=== PATIENT | male | born 1950 | race Two or more races ===

== ENCOUNTER 2017-02-09 09:01 | Inpatient (IN) | payer MEDICARE, OTHER ==
[~2017-02-09] VITALS: Ht 182.9 cm; Wt 81.6 kg
[2017-02-09] MEDS ORDERED: FOLIC ACID1 MG ORAL (09:19)
[2017-02-09] MEDS ORDERED: COREG25 MG ORAL (09:19)
[2017-02-09] MEDS ORDERED: ASPIRIN EC81 MG ORAL (09:19)
[2017-02-09] MEDS ORDERED: AMLODIPINE BESYL5 MG ORAL (09:19)
[2017-02-09] MEDS ORDERED: ATORVASTATIN CA40 MG ORAL (09:19)
[2017-02-09] MEDS ORDERED: TYLENOL EXTRA500 MG ORAL (09:19)
[2017-02-09 09:22] VITALS: BP 146/75
[2017-02-09] MEDS ORDERED: VITAMIN B-1100 MG ORAL (09:24)
[2017-02-09] MEDS ORDERED: NORCO 5-325 TA1 EACH ORAL (09:24)
[2017-02-09] MEDS ORDERED: ZINC SULFATE220 M1 ORAL (09:24)
[2017-02-09] MEDS ORDERED: VITAMIN C500 M1 ORAL (09:24)
[2017-02-09] MEDS ORDERED: ONE DAILY1 EAC3 ORAL (09:24)
[2017-02-09] MEDS ORDERED: FUROSEMIDE40 MG ORAL (09:24)
[2017-02-09] MEDS ORDERED: PRO-STAT LIQUID30 ML ORAL (09:24)
[2017-02-09] MEDS ORDERED: TYLENOL650 MG/20. ORAL (09:24)
[2017-02-09] MEDS ORDERED: HUMALOG 75/255 UNIT1 SUBQ (09:24)
[2017-02-09 10:16] LABS: MEAN CORPUSCULAR HEMOGLOBIN 31.1 PG (27.0-31.0); MEAN CORPUSCULAR HGB CONC 31.9 G/DL (32.0-36.0); MEAN CORPUSCULAR VOLUME 98 FL (80-99); MEAN PLATELET VOLUME 5.3 FL (6.5-10.1); PLATELET COUNT 370 K/UL (150-450); RED BLOOD COUNT 2.42 M/UL (4.70-6.10); RED CELL DISTRIBUTION WIDTH 12.7 % (11.6-14.8); WHITE BLOOD COUNT 13.3 K/UL (4.8-10.8)
[2017-02-09 10:21] LABS: ALANINE AMINOTRANSFERASE 29 U/L (3-41); ALBUMIN/GLOBULIN RATIO 0.4 (1.0-2.7); ANION GAP 18 (5-15); ASPARTATE AMINO TRANSFERASE 27 U/L (5-40); CALCIUM 8.2 mg/dL (8.6-10.2); CARBON DIOXIDE 18 mEQ/L (20-30); CHLORIDE 99 mEQ/L (98-107); CREATININE 3.3 mg/dL (0.7-1.2); GLOMERULAR FILTRATION RATE 18.7 mL/min (>60); HEMOLYSIS 6; POTASSIUM 4.7 mEQ/L (3.4-4.9); SODIUM 135 mEQ/L (135-145); TOTAL PROTEIN 7.9 g/dL (6.6-8.7)
[2017-02-09 10:41] LABS: ANISOCYTOSIS 1+; BAND NEUTROPHILS % (MANUAL) 0 % (0-8); BASOPHILS % (MANUAL) 0 % (0-2); EOSINOPHILS % (MANUAL) 0 % (0-3); HYPOCHROMASIA 3+; LYMPHOCYTES % (MANUAL) 3 % (20-45); NEUTROPHILS % (MANUAL) 85 % (45-75); PLATELET ESTIMATE ADEQUATE; PLATELET MORPHOLOGY NORMAL; TOTAL CELLS COUNTED 100
[2017-02-09 11:11] VITALS: BP 143/64
[2017-02-09 11:55] LABS: APPEARANCE,URINE SLIGHTLY CLOUDY; KETONES,URINE NEGATIVE (NEGATIVE); LEUKOCYTE ESTERASE ,URINE NEGATIVE (NEGATIVE); NITRITE,URINE NEGATIVE (NEGATIVE); PH,URINE 5 (4.5-8.0); PROTEIN,URINE 3+ (NEGATIVE); UROBILINOGEN,URINE NORMAL MG/DL (0.0-1.0)
[2017-02-09 12:13] LABS: AMORPHOUS SEDIMENT,UR MANY /LPF; BACTERIA,URINE OCCASIONAL /HPF; RBC,URINE 0-2 /HPF (0 - 0); SQUAMOUS EPITHELIAL CELL,UR OCCASIONAL /LPF (NONE/OCC); WBC,URINE 0-2 /HPF (0 - 0)
[2017-02-09 12:14] LABS: HYALINE CASTS, URINE 0-2 /LPF
[2017-02-09 14:05] VITALS: BP 135/63
[2017-02-09] MEDS ORDERED: Cefepime HCl 1 GM in D5W 55 ML IVPB ONE (15:00)
--- NOTE | 2017-02-09 15:00 | Emergency Room Report ---
History of Present Illness General Chief Complaint: Abnormal Labs Source: Medical Record, EMS Present Illness HPI This patient is brought in by EMS from a [facility] facility. He is brought in at the request of his primary care physician for her abnormal routine labs. Apparently, the patient was found to have anemia, leukocytosis and azotemia. The patient is a poor historian and has no specific complaints. Patient has a history of cirrhosis, diabetes, alcohol abuse, congestive heart failure and coronary artery disease. Allergies: Coded Allergies: No Known Allergies (Unverified , 02/09/17) Patient History Past Medical History: see triage record, DM, [place] - ETOH abuse, cirrhosis, CAD, CHF, other Social History: Denies: alcohol use, drug use, smoking Reviewed Nursing Documentation: PMH: Agreed, PSxH: Agreed Nursing Documentation-PMH Past Medical History: No History, Except For Hx Hypertension: Yes Hx Diabetes: Yes Review of Systems All Other Systems: negative except mentioned in HPI Physical Exam Vital Signs Date Time Temp Pulse Resp B/P Pulse Ox O2 Delivery O2 Flow Rate FiO2 02/09/17 08:52 98.1 67 16 146/75 97 Room Air Sp02 EP Interpretation: reviewed, normal General Appearance: no apparent distress, alert, GCS 15, non-toxic Head: normocephalic, atraumatic Eyes: bilateral eye PERRL, bilateral eye normal inspection ENT: hearing grossly normal, normal pharynx, no angioedema, normal voice Neck: full range of motion, supple/symm/no masses Respiratory: chest non-tender, lungs clear, normal breath sounds, speaking full sentences Cardiovascular #1: regular rate, rhythm, no edema Gastrointestinal: normal bowel sounds, non tender, soft, non-distended, no guarding, no rebound Rectal: deferred Musculoskeletal: normal range of motion Neurologic: alert, responsive, motor strength/tone normal, speech normal Psychiatric: mood/affect normal Skin: warm/dry, other - See RN skin exam Medical Decision Making Diagnostic Impression: Primary Impression: Renal failure Additional Impressions: Anemia Leukocytosis Pneumonia ER Course Patient presents from a [facility] facility with renal failure, anemia and leukocytosis. Apparently, the anemia has been ongoing for the past month. The patient has had undergo blood transfusion. The patient underwent a surgical debridement of the right lower extremity where there was a severe cellulitis. The patient is an undergo a BKA. Patient is also found to be in renal failure. The patient was recently started on Lasix for congestive heart failure. He also has a mild leukocytosis that could be related to known cellulitis versus bacteremia. There is no evidence of urinary tract infection with negative urinalysis. There is a right lower lobe opacity on chest x-ray that could be pneumonia. There is no comparison available I am unsure of the acuity of this. Regardless, the patient is admitted for renal failure, anemia and pneumonia. Labs Test 02/09/17 09:50 02/09/17 11:30 White Blood Count 13.3 K/UL (4.8-10.8) Red Blood Count 2.42 M/UL (4.70-6.10) Hemoglobin 7.5 G/DL (14.2-18.0) Hematocrit 23.6 % (42.0-52.0) Mean Corpuscular Volume 98 FL (80-99) Mean Corpuscular Hemoglobin 31.1 PG (27.0-31.0) Mean Corpuscular Hemoglobin Concent 31.9 G/DL (32.0-36.0) Red Cell Distribution Width 12.7 % (11.6-14.8) Platelet Count 370 K/UL (150-450) Mean Platelet Volume 5.3 FL (6.5-10.1) Neutrophils (%) (Auto) % (45.0-75.0) Lymphocytes (%) (Auto) % (20.0-45.0) Monocytes (%) (Auto) % (1.0-10.0) Eosinophils (%) (Auto) % (0.0-3.0) Basophils (%) (Auto) % (0.0-2.0) Differential Total Cells Counted 100 Neutrophils % (Manual) 85 % (45-75) Lymphocytes % (Manual) 3 % (20-45) Monocytes % (Manual) 12 % (1-10) Eosinophils % (Manual) 0 % (0-3) Basophils % (Manual) 0 % (0-2) Band Neutrophils 0 % (0-8) Platelet Estimate Adequate Platelet Morphology Normal Hypochromasia 3+ Anisocytosis 1+ Sodium Level 135 mEQ/L (135-145) Potassium Level 4.7 mEQ/L (3.4-4.9) Chloride Level 99 mEQ/L (98-107) Carbon Dioxide Level 18 mEQ/L (20-30) Anion Gap 18 (5-15) Blood Urea Nitrogen 107 mg/dL (7-23) Creatinine 3.3 mg/dL (0.7-1.2) Estimat Glomerular Filtration Rate 18.7 mL/min (>60) Glucose Level 156 mg/dL (74-106) Calcium Level 8.2 mg/dL (8.6-10.2) Total Bilirubin < 0.2 mg/dL (0.0-1.2) Aspartate Amino Transf (AST/SGOT) 27 U/L (5-40) Alanine Aminotransferase (ALT/SGPT) 29 U/L (3-41) Alkaline Phosphatase 230 U/L (40-129) Total Protein 7.9 g/dL (6.6-8.7) Albumin 2.4 g/dL (3.5-5.2) Globulin 5.5 g/dL Albumin/Globulin Ratio 0.4 (1.0-2.7) Urine Color Pale yellow Urine Appearance Slightly cloudy Urine pH 5 (4.5-8.0) Urine Specific [place] 1.015 (1.005-1.035) Urine Protein 3+ (NEGATIVE) Urine Glucose (UA) Negative (NEGATIVE) Urine Ketones Negative (NEGATIVE) Urine Occult Blood Negative (NEGATIVE) Urine Nitrite Negative (NEGATIVE) Urine Bilirubin Negative (NEGATIVE) Urine Urobilinogen Normal MG/DL (0.0-1.0) Urine Leukocyte Esterase Negative (NEGATIVE) Urine RBC 0-2 /HPF (0 - 0) Urine WBC 0-2 /HPF (0 - 0) Urine Squamous Epithelial Cells Occasional /LPF Urine Amorphous Sediment Many /LPF (NONE) Urine Bacteria Occasional /HPF (NONE) Urine Hyaline Casts 0-2 /LPF (NONE) Chest X-Ray Diagnostic Results EP Interpretation: Yes Findings: no pneumothorax Number of Views: 1 Other Impression RLL opacity Last Vital Signs Date Time Temp Pulse Resp B/P Pulse Ox O2 Delivery O2 Flow Rate FiO2 02/09/17 14:39 98.1 65 16 135/63 98 Room Air Disposition: ADMITTED INPATIENT Condition: Serious Referrals: KELSEA DIAL (PCP) EFDERICA COLE D.O. Feb 09, 2017 15:00
[2017-02-09] MEDS ORDERED: Cefepime 1gm vial ONE (15:06)
--- NOTE | 2017-02-09 15:22 | Diagnostic Imaging Report ---
Indication: Chest pain Technique: One view of the chest Comparison: none Findings: Infiltrate is seen in the right mid and lower lung. There is a right-sided pleural effusion. Atelectasis is seen at the left lung base. The heart is mildly enlarged. Impression: Right basilar infiltrate and pleural fluid Cardiomegaly
[2017-02-09 15:42] VITALS: BP 135/65
[2017-02-09 20:00] VITALS: BP 143/71
[2017-02-09] MEDS: Norco 5mg/325mg tab ORAL PRN (20:18)
[2017-02-09] MEDS ORDERED: Vancomycin 1.5 GM in D5W 325 ML IVPB ONE (21:00)
[2017-02-09] MEDS ORDERED: Zolpidem 5mg tab ORAL PRN (21:00)
[2017-02-09] MEDS: NovoLOG Insulin Flexpen SUBQ SCH (21:22)
[2017-02-09] MEDS ORDERED: Piperacillin/Tazobactam 3.375 GM in NS 110 ML IVPB SCH (23:00)
[2017-02-09] MEDS ORDERED: Piperacillin/Tazobactam 3.375 GM in D5W 110 ML IVPB SCH (23:00)
[2017-02-10 00:01] VITALS: BP 132/64
--- NOTE | 2017-02-10 00:28 | History and Physical Report ---
DATE OF ADMISSION: 02/09/2017 REASON FOR ADMISSION: Abnormal labs, profound anemia and renal failure. HISTORY OF PRESENT ILLNESS: This is a 66-year-old female brought in for abnormal labs. The patient was noted to be significantly anemic with leukocytosis and renal failure. The patient underwent history of cirrhosis, diabetes, and CHF. The patient was seen and evaluated in the emergency room and was noted to have significantly abnormal labs. Pending admission to the floor, the patient was given IV antibiotics and x-rays and labs were obtained. The patient denies any chest pain and shortness of breath. Denies any fevers or chills. The patient events are fairly subacute in nature, but appear to have worsened overall. The patient has no fevers or chills, no pain of a significant degree. PAST MEDICAL HISTORY: Diabetes, CT, alcohol abuse, cirrhosis, CAD, CHF, and possible history of renal failure. MEDICATIONS: Reviewed. ALLERGIES: Reviewed. SOCIAL HISTORY: The patient is now at a prison. History of alcohol use in the past. REVIEW OF SYSTEMS: Otherwise negative with the exception of the above. PHYSICAL EXAMINATION: GENERAL: The patient is a well-developed male, in no acute distress. VITAL SIGNS: Blood pressure 135/65, pulse 62, respirations 18, temperature 97.7 degrees, and oxygen saturation 97%. HEENT: Fairly negative. Extraocular movements are intact. Pupils are equal and reactive. NECK: Otherwise supple. LUNGS: Otherwise clear. No rhonchi. No wheezes. CARDIAC: Normal S1 and S2. Regular rhythm without murmurs, rubs, or gallops. ABDOMEN: Soft, nontender, and nondistended. EXTREMITIES: No cyanosis. No clubbing. NEUROLOGIC: Alert, responsive, and appears to be nonfocal. LABORATORY DATA: Sodium 135, potassium 4.7, BUN 107, and creatinine 3.3. Blood sugar is 156. Alkaline phosphatase 230. Albumin 2.4. White cell count 13.3, hemoglobin 10.5, hematocrit 33.6, and platelets 370,000. Urinalysis with minimal white cells. IMPRESSION: 1. Leukocytosis. 2. Evidence of metabolic acidosis. 3. Concerns for a possibility of underlying sepsis syndrome. 4. Hyperglycemia. 5. Renal failure, possible acute on chronic. 6. Elevated alcohol phosphatase, unclear etiology. 7. Significant anemia, possible gastrointestinal bleed. RECOMMENDATIONS: 1. Transfuse 2 units of packed red blood cells. 2. Empiric antibiotics. 3. IV hydration with caution. 4. Renal followup and recommendations. 5. Review prison medications and avoid diuresis. 6. Clinically recommend EKG and renal evaluation and hopefully ID evaluation. 7. On stabilizing, discharge the patient back to the prison. Corbin Navarro M.D. DR: CLARKE JOB#: [id number] CC:
[2017-02-10 04:00] VITALS: BP 147/74
[2017-02-10] MEDS: NovoLOG Insulin Flexpen SUBQ SCH ×4 (06:40→21:36)
[2017-02-10 07:54] LABS: BASOPHILS % (AUTO) 0.6 % (0.0-2.0); EOSINOPHILS % (AUTO) 1.1 % (0.0-3.0); MEAN CORPUSCULAR HEMOGLOBIN 30.7 PG (27.0-31.0); MEAN CORPUSCULAR HGB CONC 32.7 G/DL (32.0-36.0); MEAN CORPUSCULAR VOLUME 94 FL (80-99); MEAN PLATELET VOLUME 5.7 FL (6.5-10.1); MONOCYTES % (AUTO) 7.4 % (1.0-10.0); NEUTROPHILS % (AUTO) 83.8 % (45.0-75.0); PLATELET COUNT 322 K/UL (150-450); RED BLOOD COUNT 3.02 M/UL (4.70-6.10); RED CELL DISTRIBUTION WIDTH 13.7 % (11.6-14.8); WHITE BLOOD COUNT 10.7 K/UL (4.8-10.8)
[2017-02-10 08:00] VITALS: BP 146/69
--- NOTE | 2017-02-10 08:18 | General Progress Note ---
Assessment/Plan Assessment/Plan IMPRESSION: 1. Leukocytosis. 2. Evidence of metabolic acidosis. 3. Concerns for a possibility of underlying sepsis syndrome. 4. Hyperglycemia. 5. Renal failure, possible acute on chronic. 6. Elevated alcohol phosphatase, unclear etiology. 7. Significant anemia, possible gastrointestinal bleed. RECOMMENDATIONS: 1. Transfused 2 units of packed red blood cells. will call GI 2. Empiric antibiotics. and call ID 3. IV hydration with caution. 4. Renal followup and recommendations. called 5. Review [facility] medications and avoid diuresis. 6. Clinically recommend EKG and renal evaluation and hopefully ID evaluation. 7. will stabilize and discharge the patient back to the [facility]. Subjective Allergies: Coded Allergies: No Known Allergies (Unverified , 02/09/17) Subjective seems confused disheveled Objective Last 24 Hour Vital Signs Date Time Temp Pulse Resp B/P Pulse Ox O2 Delivery O2 Flow Rate FiO2 02/10/17 04:00 66 02/10/17 04:00 98.0 66 18 147/74 97 Room Air 02/10/17 00:31 60 02/10/17 00:01 98.1 61 18 132/64 94 Room Air 02/09/17 20:00 97.7 65 19 143/71 95 Room Air 02/09/17 20:00 65 02/09/17 16:00 65 02/09/17 15:42 97.7 62 18 135/65 97 Room Air 02/09/17 14:39 98.1 65 16 135/63 98 Room Air 02/09/17 14:05 65 16 135/63 98 Room Air 02/09/17 11:11 64 16 143/64 97 Room Air 02/09/17 09:22 16 146/75 97 Room Air 02/09/17 08:52 98.1 67 16 146/75 97 Room Air Intake and Output 02/09/17 02/10/17 19:00 07:00 Intake Total 0 ml 755.0 ml Output Total 1700 ml 900 ml Balance -1700 ml -145.0 ml Intake Oral 0 ml 220 ml IV Total 535.0 ml Output Urine Total 1700 ml 900 ml Laboratory Tests 02/09/17 09:50: White Blood Count 13.3H, Red Blood Count 2.42L, Hemoglobin 7.5L, Hematocrit 23.6L, Mean Corpuscular Volume 98, Mean Corpuscular Hemoglobin 31.1H, Mean Corpuscular Hemoglobin Concent 31.9L, Red Cell Distribution Width 12.7, Platelet Count 370, Mean Platelet Volume 5.3L, Neutrophils (%) (Auto) , Lymphocytes (%) (Auto) , Monocytes (%) (Auto) , Eosinophils (%) (Auto) , Basophils (%) (Auto) , Differential Total Cells Counted 100, Neutrophils % ( Manual) 85H, Lymphocytes % (Manual) 3L, Monocytes % (Manual) 12H, Eosinophils % (Manual) 0, Basophils % (Manual) 0, Band Neutrophils 0, Platelet Estimate Adequate, Platelet Morphology Normal, Hypochromasia 3+, Anisocytosis 1+, Sodium Level 135, Potassium Level 4.7, Chloride Level 99, Carbon Dioxide Level 18L, Anion Gap 18H, Blood Urea Nitrogen 107H, Creatinine 3.3H, Estimat Glomerular Filtration Rate 18.7, Glucose Level 156H, Calcium Level 8.2L, Total Bilirubin < 0.2, Aspartate Amino Transf (AST/SGOT) 27, Alanine Aminotransferase (ALT/SGPT) 29, Alkaline Phosphatase 230H, Total Protein 7.9, Albumin 2.4L, Globulin 5.5, Albumin/Globulin Ratio 0.4L 02/09/17 11:30: Urine Color Pale yellow, Urine Appearance Slightly cloudy, Urine pH 5, Urine Specific [place] 1.015, Urine Protein 3+H, Urine Glucose (UA) Negative, Urine Ketones Negative, Urine Occult Blood Negative, Urine Nitrite Negative, Urine Bilirubin Negative, Urine Urobilinogen Normal, Urine Leukocyte Esterase Negative , Urine RBC 0-2H, Urine WBC 0-2, Urine Squamous Epithelial Cells Occasional, Urine Amorphous Sediment ManyH, Urine Bacteria Occasional, Urine Hyaline Casts 0 -2H 02/10/17 07:20: White Blood Count 10.7, Red Blood Count 3.02L, Hemoglobin 9.3L, Hematocrit 28.4L , Mean Corpuscular Volume 94, Mean Corpuscular Hemoglobin 30.7, Mean Corpuscular Hemoglobin Concent 32.7, Red Cell Distribution Width 13.7, Platelet Count 322, Mean Platelet Volume 5.7L, Neutrophils (%) (Auto) 83.8H, Lymphocytes (%) (Auto) 7.0L, Monocytes (%) (Auto) 7.4, Eosinophils (%) (Auto) 1.1, Basophils (%) (Auto) 0.6, Sodium Level [Pending], Potassium Level [Pending], Chloride Level [Pending], Carbon Dioxide Level [Pending], Blood Urea Nitrogen [ Pending], Creatinine [Pending], Estimat Glomerular Filtration Rate [Pending], Glucose Level [Pending], Calcium Level [Pending] Height (Feet): 6 Height (Inches): 0.00 Weight (Pounds): 180 Objective GENERAL: The patient is a well-developed male, in no acute distress.. HEENT: Fairly negative. Extraocular movements are intact. Pupils are equal and reactive. NECK: Otherwise supple. LUNGS: Otherwise clear. No rhonchi. No wheezes. CARDIAC: Normal S1 and S2. Regular rhythm without murmurs, rubs, or gallops. ABDOMEN: Soft, nontender, and nondistended. EXTREMITIES: No cyanosis. No clubbing. NEUROLOGIC: Alert, responsive, and appears to be nonfocal. reviewed and edited KELSEA DIAL Feb 10, 2017 08:18
[2017-02-10 08:19] LABS: CALCIUM 7.9 mg/dL (8.6-10.2); CREATININE 3.2 mg/dL (0.7-1.2); GLOMERULAR FILTRATION RATE 19.4 mL/min (>60); POTASSIUM 4.8 mEQ/L (3.4-4.9)
[2017-02-10] MEDS: Ascorbic Acid 500mg tab ORAL SCH (10:23)
[2017-02-10] MEDS: Thiamine 100mg tab ORAL SCH (10:23)
[2017-02-10] MEDS: Zinc Sulfate 220mg cap ORAL SCH (10:23)
[2017-02-10] MEDS: Carvedilol 25mg Tab ORAL SCH ×2 (10:23→21:32)
--- NOTE | 2017-02-10 10:45 | Diagnostic Imaging Report ---
Indication: COUGH Technique: One view of the chest Comparison: 02/09/2017 Findings: Again demonstrated is bilateral interstitial and airspace disease, appearing unchanged. The heart is enlarged. There is likely small amount of pleural fluid on the right, unchanged. Old healed [fractures are again noted. Impression: Unchanged, over one day, findings as above.
[2017-02-10 11:12] VITALS: BP 150/74
--- NOTE | 2017-02-10 11:53 | Wound Care Consultation ---
Wound Assessment Wound Assessment #1: Wound Number: #1 Wound Present on Admission: Yes New Wound: No Status Change of Wound: No Wound Location Body Site Modif: right Wound Location Body Site: heel Wound Type: pressure ulcer Mayela Test: Does not Mayela Pressure Ulcer Stage: IV/unstageable Wound Thickness: Full Thickness Wound Length: 7.5 Wound Width: 7.5 Wound Depth: 2.5 Percent of Wound [place]/Red: 40 Percent of Wound Bed Yellow/Wh: 30 Percent of Wound Black/Brown: 20 Percent of Wound Purple/Maroon: 10 Wound Drainage Description: Serosanguineous Wound Drainage Amount: Copious Wound Drainage Odor: None/Absent Tissue Surrounding Wound: noted wound bed, boggy , mushy, surrounding tissue noted macerated, erythemic, necrotic. Wound Undermining at 12:00: 2.5 Wound Undermining at 3:00: 2.5 Wound Undermining at 6:00: 2.5 Wound Undermining at 9:00: 2.5 Wound General Appearance: Reddened, Blackened, Draining Wound Assessment #2: Wound Number: #2 Wound Present on Admission: Yes New Wound: No Status Change of Wound: No Wound Location Body Site Modif: left Wound Location Body Site: toe - 1st big toe Wound Type: other - thick adhered dry callus. Mayela Test: Does not Mayela Wound Thickness: Full Thickness Wound Length: 3.0 Wound Width: 3.0 Wound Depth: utd Percent of Wound Bed Yellow/Wh: 90 Percent of Wound Black/Brown: 10 Wound Drainage Amount: None Wound Drainage Odor: None/Absent Tissue Surrounding Wound: Intact Wound General Appearance: Open to air, Clean/Dry Wound Assessment #3: Wound Number: #3 Wound Present on Admission: Yes New Wound: No Status Change of Wound: No Wound Location Body Site: sacral Wound Type: pressure ulcer Mayela Test: Does not Mayela Pressure Ulcer Stage: deep tissue injury - suspected Wound Thickness: Full Thickness Wound Length: 3.0 Wound Width: 1.5 Wound Depth: utd Percent of Wound [place]/Red: 10 Percent of Wound Black/Brown: 40 - dark brown color noted. Percent of Wound Purple/Maroon: 50 Wound Drainage Odor: None/Absent Tissue Surrounding Wound: Intact Wound General Appearance: Reddened - maroon. Wound Comment #1 Right heel pressure ulcer stage IV/Unstageable. #2 Left 1st toe callus. #3 Sacral suspected deep tissue injury. -FOLLOW UP WITH MD FOR PODIATRY CONSULT TO RIGHT HEEL WOUND. RECOMMENDATION -Apply low air loss overlay mattress SPR. -Local wound care as ordered. -Optimize nutrition. -Keep clean and dry. -Avoid shear and friction. -Turn and reposition. -Heel protectors. -Offload both heels and feet. -Assess and follow up with MD for any change of condition. ROSENDO ANTOINE Feb 10, 2017 11:53
[2017-02-10] MEDS: Piperacillin/Tazobactam 3.375 GM in NS 110 ML IVPB SCH (13:59)
[2017-02-10] MEDS: Heparin 5000 units/ml inj SUBQ SCH ×3 (13:59→21:37)
[2017-02-10 15:21] VITALS: BP 137/68
--- NOTE | 2017-02-10 18:38 | Consultation ---
DATE OF CONSULTATION: 02/10/2017 INFECTIOUS DISEASES CONSULTATION CONSULTING PHYSICIAN: Francia De La Vega M.D. REFERRING PHYSICIAN: Corbin Navarro M.D. REASON FOR CONSULTATION: Leukocytosis. HISTORY OF PRESENTING ILLNESS: This is a 66-year-old gentleman with history of diabetes, cirrhosis, myocardial infarction, and congestive heart failure, who came in with leukocytosis and renal failure. An Infectious Diseases consultation has been obtained for leukocytosis. PAST MEDICAL HISTORY: 1. History of diabetes. 2. Myocardial infarction. 3. Cirrhosis. 4. Coronary artery disease. 5. Congestive heart failure. 6. Renal failure. SOCIAL HISTORY: He has a history of alcohol use. Rest of the history is unknown. FAMILY HISTORY: Unknown. REVIEW OF SYSTEMS: Unable to obtain currently. MEDICATIONS: As an inpatient, the patient is on atorvastatin, Zosyn, Norvasc, vitamin C, Coreg, folic acid, multivitamin, thiamine, zinc sulfate, Protonix, Ambien, insulin, [place], IV vancomycin, Tylenol, Mylanta, and albuterol. ALLERGIES: No known drug allergies. PHYSICAL EXAMINATION: VITAL SIGNS: Temperature of 98.1, T-max of 98.1, pulse of 83, respiratory of 18, blood pressure 146/69, and O2 saturation of 95%. HEENT: Pupils are equally reactive to light and accommodation. Mouth appears clean without thrush. NECK: Supple. No adenopathy. No JVD. CARDIOVASCULAR: Regular rate and rhythm. No murmurs. LUNGS: Clear to auscultation bilaterally. No crackles. No wheezes. ABDOMEN: Soft and nontender. No organomegaly. EXTREMITIES: No cyanosis, no clubbing, no edema. LABORATORY DATA: White count of 13.3 on 02/09/2017, white count of 10.7 today, hemoglobin 9.3, hematocrit 28.4, MCV 94, platelet count of 322,000, and neutrophils of 83%. Sodium 134, potassium 4.8, chloride 100, bicarbonate 17, BUN 99, creatinine 3.2, glucose 187, and calcium 7.9. Total bilirubin yesterday less than 0.2. AST 27, ALT 29, and alkaline phosphatase 230. Total protein 7.9. Albumin 2.4. UA is showing 0 to 2 white cells. Chest x-ray is showing right base infiltrate and pleural fluid. ASSESSMENT: 1. This is a 66-year-old gentleman with history of cirrhosis and diabetes, who comes in and is found to have leukocytosis, would be concerned regarding sepsis or urinary tract infection. 2. Cirrhosis. 3. Diabetes. 4. Renal failure. PLAN: 1. We will order blood cultures and urine cultures. 2. Continue Zosyn. 3. Discontinue vancomycin. 4. We will follow up cultures and adjust antibiotics accordingly. I would like to thank, Dr. Navarro, for this consultation. Francia De La Vega M.D. DR: CORKY JOB#: [id number] CC: Corbin Navarro M.D.; Fax#: [phone]
[2017-02-10 20:18] VITALS: BP 131/87
[2017-02-10] MEDS: Vitamin A&D Oint 2oz Tube TOPIC SCH (21:31)
--- NOTE | 2017-02-10 21:56 | General Progress Note ---
Subjective Allergies: Coded Allergies: No Known Allergies (Unverified , 02/09/17) Objective Last 24 Hour Vital Signs Date Time Temp Pulse Resp B/P Pulse Ox O2 Delivery O2 Flow Rate FiO2 02/10/17 21:32 77 147/98 02/10/17 20:23 68 20 Room Air 21 02/10/17 20:18 98.3 67 20 131/87 96 Room Air 02/10/17 16:00 66 02/10/17 15:21 98.2 63 20 137/68 98 Room Air 02/10/17 12:00 68 02/10/17 11:12 98.2 74 20 150/74 94 Room Air 02/10/17 10:23 83 146/69 02/10/17 10:23 83 146/69 02/10/17 09:09 83 18 Room Air 21 02/10/17 08:00 69 02/10/17 08:00 98.1 64 18 146/69 95 Room Air 64 02/10/17 04:00 66 02/10/17 04:00 98.0 66 18 147/74 97 Room Air 02/10/17 00:31 60 02/10/17 00:01 98.1 61 18 132/64 94 Room Air Intake and Output 02/09/17 02/10/17 19:00 07:00 Intake Total 0 ml 755.0 ml Output Total 1700 ml 900 ml Balance -1700 ml -145.0 ml Intake Oral 0 ml 220 ml IV Total 535.0 ml Output Urine Total 1700 ml 900 ml Laboratory Tests 02/10/17 07:20: White Blood Count 10.7, Red Blood Count 3.02L, Hemoglobin 9.3L, Hematocrit 28.4L , Mean Corpuscular Volume 94, Mean Corpuscular Hemoglobin 30.7, Mean Corpuscular Hemoglobin Concent 32.7, Red Cell Distribution Width 13.7, Platelet Count 322, Mean Platelet Volume 5.7L, Neutrophils (%) (Auto) 83.8H, Lymphocytes (%) (Auto) 7.0L, Monocytes (%) (Auto) 7.4, Eosinophils (%) (Auto) 1.1, Basophils (%) (Auto) 0.6, Sodium Level 134L, Potassium Level 4.8, Chloride Level 100, Carbon Dioxide Level 17L, Anion Gap 17H, Blood Urea Nitrogen 99H, Creatinine 3.2H, Estimat Glomerular Filtration Rate 19.4, Glucose Level 187H, Calcium Level 7.9L Height (Feet): 6 Height (Inches): 0.00 Weight (Pounds): 180 BESS HOGAN Feb 10, 2017 21:56
[2017-02-10 22:25] LABS: INR 1.3 (0.9-1.1); PROTHROMBIN TIME 12.9 SEC (9.30-11.50)
--- NOTE | 2017-02-10 22:28 | Consultation ---
DATE OF CONSULTATION: 02/10/2017 NEPHROLOGY CONSULTATION: CONSULTING PHYSICIAN: Rajat Wood M.D. ATTENDING PHYSICIAN: Corbin Navarro M.D. REFERRING PHYSICIAN: Corbin Navarro M.D. REASON FOR CONSULTATION: Abnormal BUN and creatinine. HISTORY OF PRESENT ILLNESS: The patient is a 66-year-old man, who is sent in from the [facility]. Unfortunately, the records have not arrived from the [facility] and he cannot give a good history. He has a poor memory. I have requested for the records and I have called the family, but I have not received a call back at the time of this dictation. The patient apparently has diabetes for many years and cirrhosis secondary to alcoholism and history of CHF. He has severe anemia and azotemia and was sent in for evaluation of abnormal laboratories. He also has an abnormal chest x-ray. He denies shortness of breath, cough, nausea, vomiting, abdominal pain, hematochezia, or melena. PAST SURGICAL HISTORY: Leg fracture many years ago. MEDICATIONS: Medications at the [facility] on the computer are listed and include Tylenol, Pro-Stat, amlodipine, ascorbic acid, aspirin, atorvastatin, carvedilol, folic acid, furosemide, [place], Lispro, insulin, multivitamins, thiamine, and zinc sulfate. HABITS: He was a heavy alcohol user in the past. He states that he quit. He has used marijuana. He denies intravenous drug abuse or smoking cigarettes. ALLERGIES: None known. SOCIAL HISTORY: He lives in an [facility]. SYSTEM REVIEW: HEAD, EYES, EARS, NOSE, AND THROAT: The patient is very hard of hearing. His vision is good. ENDOCRINE: History of diabetes. He is not aware of thyroid disease. PULMONARY: He denies shortness of breath or cough at this time. CARDIAC: He denies chest pain or palpitations. There is apparently a history of CHF. He is on cardiac medications. GASTROINTESTINAL: He denies nausea or vomiting at this time. He states that his appetite is good. GENITOURINARY: He denies difficulty voiding. NEUROLOGIC: He denies seizure or stroke. PHYSICAL EXAMINATION: GENERAL: The patient is a alert man, lying in bed. VITAL SIGNS: Temperature is 98.2 degrees, pulse 63, respirations 20, blood pressure 137/68, and pulse oximetry 98% on room air. He was seen with a slash trimmer and a nurse at the bedside. HEENT: Ocular motions are intact in all directions. Sclerae are nonicteric. Oral mucosa is moist. NECK: No adenopathy. LUNGS: Clear. HEART: Rhythm is regular. I hear no murmur. ABDOMEN: Soft. I am not able to clearly feel liver or spleen edge. EXTREMITIES: No edema, cyanosis, or clubbing. There is a dressing over the right heel, where he has a wound. NEUROLOGIC: He is alert and responsive. Speech is slurred, but he is very hard of hearing. Ocular motions are intact in all directions. Smile is symmetric and he moves all extremities. PERTINENT LABORATORY DATA: On 02/09/2017, BUN was 107 and creatinine 3.3 and on 02/10/2017, BUN was 99 and creatinine 3.2. Sodium is 134, potassium 4.8, chloride 100, CO2 17, and glucose 187. White count is 10.7 and hemoglobin 9.3, and on arrival hemoglobin was 7.5. Urinalysis shows 0 to 2 red cells, and 0 to 2 white cells per high-power field. DIAGNOSTIC DATA: Chest x-ray shows bilateral interstitial and air space disease. IMPRESSION: 1. Elevated BUN and creatinine, likely chronic kidney disease stage 5. Prior laboratories are not available. Perhaps there is a component of acute kidney injury as well, but it is not clear. 2. Metabolic acidosis. 3. Anemia likely anemia of chronic kidney disease. 4. Cirrhosis. 5. Abnormal chest x-ray, possibly from atelectasis or possible infiltrate, possible component of congestive heart failure. PLAN: We will try to get further information from family and the ECF about his underlying disease. We will get renal imaging and consider whether or not he is a candidate for dialysis if his renal function does not improve with careful hydration. He is a high risk patient in view of cirrhosis and renal disease. Thank you so much for allowing me to participate in the care of this patient. Rajat Wood M.D. DR: Patricia JOB#: [id number] CC:
[2017-02-11 00:02] VITALS: BP 140/67
[2017-02-11] MEDS: Albuterol ud Inhalation HHN PRN (00:36)
--- NOTE | 2017-02-11 02:48 | Consultation ---
DATE OF CONSULTATION: 02/10/2017 NOTE: VERY BAD INAUDIBLE AUDIO QUALITY GASTROLOGY CONSULTATION CHIEF COMPLAINT: I was asked to see this patient by Dr. Corbin Navarro for evaluation of anemia and cirrhosis. HISTORY OF PRESENT ILLNESS: The patient is a 66-year-old man, who is somewhat agitated and yelling throughout the interview for abnormal laboratories. The patient appears to have poor insight into his health and could not clearly answer to the questions. The patient had history of alcohol use and has been diagnosed with alcoholic cirrhosis, although his history of cirrhosis. The patient also has , which is being evaluated separately by guidance secretary. The patient today. He cannot recall when he has had endoscopy or colonoscopy in the past. PAST MEDICAL HISTORY: History of diabetes, myocardial infarction, history of alcohol abuse, cirrhosis, coronary artery disease, congestive heart failure and chronic renal failure. MEDICATIONS: See chart for details. FAMILY HISTORY: Noncontributory. SOCIAL HISTORY: The patient is from a [facility] at this time and did have alcohol abuse history in the past. REVIEW OF SYSTEMS: Otherwise negative. PHYSICAL EXAMINATION: GENERAL: The patient is agitated, man, who has bedside. HEENT: Normocephalic and atraumatic. Sclerae anicteric. Oropharynx is clear. NECK: Supple. CHEST: Clear to auscultation. CARDIOVASCULAR: Revealed regular rate. ABDOMEN: Soft. Good bowel sounds. EXTREMITIES: Revealed no edema. NEUROLOGIC: Nonfocal. LABORATORY DATA: Noted. ASSESSMENT: This patient presents with multiple medical problems. There . He has had history of alcohol use and has been consistent to have liver disease. However, his platelet counts are normal and his INR is 1.3. He did not . However, his imaging studies will be done to evaluate liver morphology. In the meantime, as tolerated. We will monitor his CBC, but there appeared to be gastrointestinal bleeding at this time. RECOMMENDATIONS: 1. Push oral intake. 2. Follow laboratory parameters exam. 3. Check . 4. Check CT scan or abdominal ultrasound. Brandon Rendon M.D. DR: ARNALDO JOB#: [id number] CC:
[2017-02-11] MEDS: Piperacillin/Tazobactam 3.375 GM in NS 110 ML IVPB SCH ×2 (03:12→15:20)
[2017-02-11 04:04] VITALS: BP 150/79
[2017-02-11] MEDS: NovoLOG Insulin Flexpen SUBQ SCH ×4 (06:27→21:22)
[2017-02-11 08:08] LABS: BASOPHILS % (AUTO) 0.2 % (0.0-2.0); EOSINOPHILS % (AUTO) 0.4 % (0.0-3.0); LYMPHOCYTES % (AUTO) 8.3 % (20.0-45.0); MEAN CORPUSCULAR HEMOGLOBIN 30.9 PG (27.0-31.0); MEAN CORPUSCULAR HGB CONC 32.7 G/DL (32.0-36.0); MEAN CORPUSCULAR VOLUME 95 FL (80-99); MEAN PLATELET VOLUME 5.7 FL (6.5-10.1); MONOCYTES % (AUTO) 7.6 % (1.0-10.0); NEUTROPHILS % (AUTO) 83.4 % (45.0-75.0); PLATELET COUNT 308 K/UL (150-450); RED BLOOD COUNT 2.93 M/UL (4.70-6.10)
[2017-02-11 08:14] VITALS: BP 145/73
[2017-02-11 08:37] LABS: INR 1.2 (0.9-1.1); PROTHROMBIN TIME 12.6 SEC (9.30-11.50)
--- NOTE | 2017-02-11 08:40 | General Progress Note ---
Assessment/Plan Assessment/Plan IMPRESSION: 1. Leukocytosis. 2. Evidence of metabolic acidosis. 3. Concerns for a possibility of underlying sepsis syndrome. 4. Hyperglycemia. 5. Renal failure, possible acute on chronic. 6. Elevated alcohol phosphatase, unclear etiology. 7. Significant anemia, possible gastrointestinal bleed. RECOMMENDATIONS: 1. appreciate GI 2. Empiric antibiotics. and defer to ID 3. IV hydration with caution. 4. Renal followup and recommendations. noted 5. Review jail medications . 6. Clinically recommend EKG and renal evaluation and hopefully ID evaluation. 7. monitor findings and stabilize impression, plan, and exam edited and reviewed in detail care discussed with RN Subjective Allergies: Coded Allergies: No Known Allergies (Unverified , 02/09/17) Subjective still with some confusion disheveled care noted and discussed consultants appreciated Objective Last 24 Hour Vital Signs Date Time Temp Pulse Resp B/P Pulse Ox O2 Delivery O2 Flow Rate FiO2 02/11/17 08:14 97.9 72 20 145/73 98 Room Air 02/11/17 07:58 Room Air 02/11/17 07:57 95 Room Air 02/11/17 07:57 65 18 Room Air 02/11/17 04:04 98.6 76 19 150/79 94 Room Air 02/11/17 04:00 75 02/11/17 00:44 72 24 97 Nasal Cannula 3.0 32 02/11/17 00:39 Nasal Cannula 3.0 32 02/11/17 00:38 97 Nasal Cannula 3.0 32 02/11/17 00:37 32 02/11/17 00:36 63 26 97 Nasal Cannula 3.0 32 02/11/17 00:02 98.6 72 19 140/67 94 Room Air 02/11/17 00:00 76 02/10/17 21:32 77 147/98 02/10/17 20:23 68 20 Room Air 21 02/10/17 20:18 98.3 67 20 131/87 96 Room Air 02/10/17 20:00 70 02/10/17 16:00 66 02/10/17 15:21 98.2 63 20 137/68 98 Room Air 02/10/17 12:00 68 02/10/17 11:12 98.2 74 20 150/74 94 Room Air 02/10/17 10:23 83 146/69 02/10/17 10:23 83 146/69 4/13/17 09:09 83 18 Room Air 21 Intake and Output 02/10/17 02/11/17 19:00 07:00 Intake Total 2024.0 ml Output Total 610 ml 415 ml Balance 1414.0 ml -415 ml Intake Oral 1020 ml IV Total 1004.0 ml Output Urine Total 610 ml 415 ml # Bowel Movements 1 Laboratory Tests 02/10/17 21:00: Stool Occult Blood [Pending] 02/10/17 22:06: Prothrombin Time 12.9H, Prothromb Time International Ratio 1.3H, Activated Partial Thromboplast Time 37H 02/11/17 07:25: Prothrombin Time [Pending], Prothromb Time International Ratio [Pending], White Blood Count 12.0H, Red Blood Count 2.93L, Hemoglobin 9.1L, Hematocrit 27.8L, Mean Corpuscular Volume 95, Mean Corpuscular Hemoglobin 30.9, Mean Corpuscular Hemoglobin Concent 32.7, Red Cell Distribution Width 14.0, Platelet Count 308, Mean Platelet Volume 5.7L, Neutrophils (%) (Auto) 83.4H, Lymphocytes (%) (Auto) 8.3L, Monocytes (%) (Auto) 7.6, Eosinophils (%) (Auto) 0.4, Basophils (%) (Auto ) 0.2, Sodium Level [Pending], Potassium Level [Pending], Chloride Level [ Pending], Carbon Dioxide Level [Pending], Blood Urea Nitrogen [Pending], Creatinine [Pending], Estimat Glomerular Filtration Rate [Pending], Glucose Level [Pending], Calcium Level [Pending], Phosphorus Level [Pending], Ferritin [ Pending], Total Bilirubin [Pending], Aspartate Amino Transf (AST/SGOT) [Pending] , Alanine Aminotransferase (ALT/SGPT) [Pending], Alkaline Phosphatase [Pending] , Ammonia [Pending], Pro-B-Type Natriuretic Peptide [Pending], Total Protein [ Pending], Albumin [Pending], Globulin [Pending], Triglycerides Level [Pending], Cholesterol Level [Pending], LDL Cholesterol [Pending], HDL Cholesterol [Pending ], Cholesterol/HDL Ratio [Pending], Amylase Level [Pending], Lipase [Pending], Alpha Fetoprotein [Pending], Folate [Pending], Hepatitis B Surface Antigen [ Pending], Hepatitis B Surface Antibody [Pending], Hepatitis C Antibody [Pending] , HIV (1&2) Antibody Rapid [Pending] Height (Feet): 6 Height (Inches): 0.00 Weight (Pounds): 180 Objective GENERAL: The patient is a well-developed male, in no acute distress.. HEENT: Fairly negative. Extraocular movements are intact. Pupils are equal and reactive. NECK: Otherwise supple. LUNGS: some rhonchi. No wheezes. reduced breath sounds CARDIAC: Normal S1 and S2. Regular rhythm without murmurs, rubs, or gallops. ABDOMEN: Soft, nontender, and nondistended. no HSM EXTREMITIES: No cyanosis. No clubbing. NEUROLOGIC: Alert, responsive, and appears to be nonfocal. reviewed and edited KELSEA DIAL Feb 11, 2017 08:40
[2017-02-11] MEDS: Vitamin A&D Oint 2oz Tube TOPIC SCH ×2 (09:00→20:36)
[2017-02-11] MEDS ORDERED: Tubing Blood Filter IV ONE (10:06)
[2017-02-11] MEDS ORDERED: D5W 275ml ONE (10:06)
[2017-02-11] MEDS ORDERED: NS 275ml ONE (10:06)
[2017-02-11] MEDS ORDERED: Tubing IV Secondary IV ONE (10:06)
[2017-02-11 10:15] LABS: ALBUMIN/GLOBULIN RATIO 0.3 (1.0-2.7); CALCIUM 8.2 mg/dL (8.6-10.2); CHOLESTEROL/HDL RATIO 2.3 (3.3-4.4); CREATININE 3.3 mg/dL (0.7-1.2); GLOMERULAR FILTRATION RATE 18.7 mL/min (>60); PHOSPHORUS 5.4 mg/dL (2.5-4.8); TOTAL PROTEIN 8.9 g/dL (6.6-8.7)
--- NOTE | 2017-02-11 10:38 | Consultation ---
DATE OF CONSULTATION: 02/10/2017 PODIATRIC CONSULTATION REFERRING PHYSICIAN: Corbin Navarro M.D. REASON FOR CONSULTATION: Right heel wound. HISTORY OF PRESENT ILLNESS: This is a 66-year-old male that was admitted to the hospital to the ER for workup of leukocytosis and renal failure. The patient was evaluated for right heel decubitus ulcer, which was treated in the [facility], where the patient was residing prior to the hospital admission. PAST MEDICAL HISTORY: Remarkable for diabetes, myocardial infarction, alcohol abuse with cirrhosis, coronary artery disease, congestive heart failure, and renal failure. MEDICATIONS: Refer to chart note. ALLERGIES: No known drug allergies. PHYSICAL EXAMINATION: VASCULAR EXAMINATION: The dorsalis pedis and posterior tibial arteries are faintly palpable bilaterally. Capillary filling time is less than 5 to 6 seconds to all digits bilaterally. No edema is present in bilateral lower extremities. Homans sign is negative. There are streaks of palpable nodes on the bilateral lower extremities present. NEUROLOGICAL EXAMINATION: The reflexes, Achilles, and patellar are measuring 1/4 bilaterally. Sharp, dull, proprioception, and vibration sensation could not be elicited from the patient due to poor response. Babinski is negative. Clonus is absent in bilateral lower extremity. MUSCULOSKELETAL EXAMINATION: Reveals bilateral nonreducible hammertoe deformities of digits 2 through 5 and no obvious threshold deformities are noted. DERMATOLOGICAL EXAMINATION: Mycotic dystrophic nail, bilateral foot. There is pre-ulcerative keratoma present on the plantar aspect of the left hallux. Right heel decubitus ulcer stage 4, which measures approximately 6 to 7 cm in diameter is noted . The ulcer is probing down to the level of calcaneus. It is draining with serosanguineous exudate moderately, no odor was noted. The wound is underlining and tunneling is also noted. The periwound area revealed necrotic skin and the wound base has approximately 50% right slough. The rest of the dermatological examination revealed bilateral leg skin atrophy with pigmentation changes. ASSESSMENT: 1. Diabetes mellitus. 2. Peripheral Vascular disease. 3. Decubitus ulcer, right heel stage IV. 4. Probable osteomyelitis right calcaneus. PLAN: 1. Musculoskeletal to include arterial Duplex bilateral lower extremities. 2. Aerobic and anaerobic cultures and sensitivity of the right heel wound. 3. Right foot x-ray to rule out osteomyelitis of the right calcaneus. 4. PT and PTT. 5. The wound will require debridement in the OR with possible application of wound VAC following the debridement. Thank you, Dr. Navarro, for allowing me in the care of this patient. Jag Price D.P.M. DR: Refugio JOB#: [id number] CC: ROBERT
--- NOTE | 2017-02-11 11:29 | Diagnostic Imaging Report ---
Indications: Abdominal pain, abnormal laboratory values Technique: Continuous helical CT imaging of the abdomen and pelvis was performed with automatic exposure control following administration of oral contrast only, on a Siemens sensation [address] scanner. Axial images were reconstructed at 5 mm slice thickness and interval. Coronal images were reconstructed at 5 mm slice thickness. No IV contrast was administered per requesting physicians order, presumably due to chronic renal failure. CTDI volume(s): 14 mGy Total DLP: 725 mGy-cm Findings: Comparison: None Lack of IV contrast limits evaluation. Oral contrast is passed throughout the gastrointestinal tract to the level of the rectum. Entire tract nondilated. No obvious mural thickening, adjacent stranding, extraluminal gas or fluid collections. Gallbladder demonstrates mild diffuse mural thickening/edema. 8 mm stone interpolar region left kidney, no collecting system dilation. Mild bilateral perinephric stranding. Scattered arterial mural calcifications. Vascular patency indeterminate. Duplicated infrarenal inferior vena cava. Urinary bladder distended with Underwood catheter, small gas bubble. Apparent posterior mural thickening. Remainder visualized abdominopelvic anatomy demonstrates no other obvious acute abnormality. Small left, moderate right pleural effusions. Patchy parenchymal consolidation and adjacent portions of both lung bases, right greater than left. Heart enlarged. Diffuse body wall edema. Multilevel disc space narrowing with marginal osteophyte formation, vacuum phenomenon, facet hypertrophy in lumbar spine. IMPRESSION: Mild gallbladder wall thickening/edema, nonspecific. Cholecystitis not excludable. Consider abdominal ultrasound for further evaluation as clinically indicated. Urinary bladder distention despite Underwood catheter in place, suggesting obstruction of the latter. Consider replacement. Small amount of gas and urinary bladder lumen may be secondary to presence of catheter. Cystitis with gas-forming organism not excludable. Apparent focal mural thickening of posterior urinary bladder wall may be hypertrophic, inflammatory, or neoplastic. Consider cystoscopy for further evaluation. No other evidence of acute abdominopelvic disease, with limitation as described. Subtle but potentially significant abnormalities may be missed. Repeat CT scan with full oral and IV contrast preparation recommended for more complete evaluation, as clinically indicated Arteriosclerosis Anasarca Pulmonary bibasal atelectasis versus pneumonia, adjacent pleural effusions Cardiomegaly Degenerative spondylosis
--- NOTE | 2017-02-11 11:29 | Infectious Diseases Prog Note ---
Assessment/Plan Assessment/Plan antibiotics : zosyn A 1. pneumonia 2. renal failure 3. cirrhosis 4. DM P 1. continue zosyn 2. will follow up cultures Subjective ROS Limited/Unobtainable: Yes Allergies: Coded Allergies: No Known Allergies (Unverified , 02/09/17) Objective Vital Signs Last 24 Hour Vital Signs Date Time Temp Pulse Resp B/P Pulse Ox O2 Delivery O2 Flow Rate FiO2 02/11/17 08:14 97.9 72 20 145/73 98 Room Air 02/11/17 07:58 Room Air 02/11/17 07:57 95 Room Air 02/11/17 07:57 65 18 Room Air 02/11/17 04:04 98.6 76 19 150/79 94 Room Air 02/11/17 04:00 75 02/11/17 00:44 72 24 97 Nasal Cannula 3.0 32 02/11/17 00:39 Nasal Cannula 3.0 32 02/11/17 00:38 97 Nasal Cannula 3.0 32 02/11/17 00:37 32 02/11/17 00:36 63 26 97 Nasal Cannula 3.0 32 02/11/17 00:02 98.6 72 19 140/67 94 Room Air 02/11/17 00:00 76 02/10/17 21:32 77 147/98 02/10/17 20:23 68 20 Room Air 21 02/10/17 20:18 98.3 67 20 131/87 96 Room Air 02/10/17 20:00 70 02/10/17 16:00 66 02/10/17 15:21 98.2 63 20 137/68 98 Room Air 02/10/17 12:00 68 Height (Feet): 6 Height (Inches): 0.00 Weight (Pounds): 180 Respiratory/Chest: lungs clear Cardiovascular: normal rate, regular rhythm, no gallop/murmur Abdomen: soft, non tender Extremities: no edema Microbiology Date/Time Source Procedure Growth Status 02/09/17 11:30 Nasal Nares MRSA Culture - Final NO METHICILLIN RESISTANT STAPH AUREUS... Complete 02/10/17 14:06 Urine,Clean Catch Urine Culture - Preliminary NO GROWTH Resulted 02/09/17 11:30 Rectum VRE Culture - Final Enterococcus Faecium - Vre Complete Laboratory Tests Test 02/10/17 21:00 02/10/17 22:06 02/11/17 07:25 Stool Occult Blood Negative (NEGATIVE) Prothrombin Time 12.9 SEC (9.30-11.50) H 12.6 SEC (9.30-11.50) H Prothromb Time International Ratio 1.3 (0.9-1.1) H 1.2 (0.9-1.1) H Activated Partial Thromboplast Time 37 SEC (23-33) H White Blood Count 12.0 K/UL (4.8-10.8) H Red Blood Count 2.93 M/UL (4.70-6.10) L Hemoglobin 9.1 G/DL (14.2-18.0) L Hematocrit 27.8 % (42.0-52.0) L Mean Corpuscular Volume 95 FL (80-99) Mean Corpuscular Hemoglobin 30.9 PG (27.0-31.0) Mean Corpuscular Hemoglobin Concent 32.7 G/DL (32.0-36.0) Red Cell Distribution Width 14.0 % (11.6-14.8) Platelet Count 308 K/UL (150-450) Mean Platelet Volume 5.7 FL (6.5-10.1) L Neutrophils (%) (Auto) 83.4 % (45.0-75.0) H Lymphocytes (%) (Auto) 8.3 % (20.0-45.0) L Monocytes (%) (Auto) 7.6 % (1.0-10.0) Eosinophils (%) (Auto) 0.4 % (0.0-3.0) Basophils (%) (Auto) 0.2 % (0.0-2.0) Sodium Level 135 mEQ/L (135-145) Potassium Level 5.0 mEQ/L (3.4-4.9) H Chloride Level 101 mEQ/L (98-107) Carbon Dioxide Level 15 mEQ/L (20-30) L Anion Gap 19 (5-15) H Blood Urea Nitrogen 94 mg/dL (7-23) H Creatinine 3.3 mg/dL (0.7-1.2) H Estimat Glomerular Filtration Rate 18.7 mL/min (>60) Glucose Level 143 mg/dL (74-106) H Calcium Level 8.2 mg/dL (8.6-10.2) L Phosphorus Level 5.4 mg/dL (2.5-4.8) H Ferritin 291 ng/mL (10-230) H Total Bilirubin 0.2 mg/dL (0.0-1.2) Aspartate Amino Transf (AST/SGOT) 28 U/L (5-40) Alanine Aminotransferase (ALT/SGPT) 30 U/L (3-41) Alkaline Phosphatase 242 U/L (40-129) H Ammonia 45 umol/L (16-60) Pro-B-Type Natriuretic Peptide 61983 pg/mL (0-125) H Total Protein 8.9 g/dL (6.6-8.7) H Albumin 2.3 g/dL (3.5-5.2) L Globulin 6.6 g/dL Albumin/Globulin Ratio 0.3 (1.0-2.7) L Triglycerides Level 80 mg/dL (< 150) Cholesterol Level 59 mg/dL (< 200) LDL Cholesterol 17 mg/dL (60-99) L HDL Cholesterol 26 mg/dL (> 60) Cholesterol/HDL Ratio 2.3 (3.3-4.4) L Amylase Level 25 U/L (10-110) Lipase 19 U/L (< 60) Alpha Fetoprotein Pending Folate Pending Hepatitis B Surface Antigen Pending Hepatitis B Surface Antibody Pending Hepatitis C Antibody Pending HIV (1&2) Antibody Rapid Pending MARÍA SNIDER Feb 11, 2017 11:29
[2017-02-11 12:30] VITALS: BP 152/81
[2017-02-11] MEDS: Ascorbic Acid 500mg tab ORAL SCH (12:49)
[2017-02-11] MEDS: Carvedilol 25mg Tab ORAL SCH ×2 (12:49→20:36)
[2017-02-11] MEDS: Thiamine 100mg tab ORAL SCH (12:49)
[2017-02-11] MEDS: Zinc Sulfate 220mg cap ORAL SCH (12:49)
--- NOTE | 2017-02-11 13:40 | Diagnostic Imaging Report ---
Indications: Right foot pain, infection Technique: 3 views right foot Findings: Comparison: None Prominent discrete defect in soft tissues of the heel pad, extending to the underlying calcaneal cortex, which is focally indistinct. No fracture, dislocation, additional lytic destruction, periosteal reaction, additional focal soft tissue swelling/gas/foreign body or other acute change demonstrated. Second distal phalanx absence. Prominent arterial mural calcifications. Intramedullary tessa distal tibia. IMPRESSION: Heel pad ulcer with findings suspicious for focal osteomyelitis of the underlying calcaneus No other evidence of acute abnormality Previous amputation second distal phalanx Previous ORIF right tibia, incompletely imaged Arteriosclerosis
--- NOTE | 2017-02-11 14:20 | Diagnostic Imaging Report ---
Indications: Epigastric abdominal pain, elevated liver function tests, para mild gallbladder wall thickening on CT scan Technique: Transabdominal real-time grayscale and duplex Doppler imaging of the upper abdomen and retroperitoneum was performed. Findings: Comparison: CT abdomen pelvis performed earlier today. Liver normal size and surface contour, parenchymal echogenicity. No focal lesions. Gallbladder Bailey diffusely thickened/edematous. No intraluminal stones or sludge. Mild adjacent fluid. Sonographic Marquez sign negative.. Bile ducts normal caliber. Common bile duct 6.5 mm. Pancreas visualized portions unremarkable. Spleen unremarkable. Right kidney unremarkable. Left kidney contains a 9 mm echogenic shadowing focus in the interpolar region, otherwise unremarkable. Abdominal aorta, intrahepatic portion of inferior vena cava patent, normal caliber. Duplex Doppler imaging demonstrates antegrade flow in splenic, portal, hepatic veins. Minimal ascites. Small right pleural effusion IMPRESSION: Gallbladder wall thickening, nonspecific, may be secondary to presence of ascites. No gallstones or other evidence of acute cholecystitis. Trace ascites in right pleural effusion, nonspecific Nonobstructive left nephrolithiasis.
--- NOTE | 2017-02-11 15:09 | Nephrology Progress Note ---
Assessment/Plan Assessment 1) CKD V 2)Proteinuria 3) Diarrhea 4) not dehydrated clinically Plan: Check UIEP, Urine prot/creat ratio Stool C. diff Subjective Subjective No c/p opr sob, some loose stool Objective Objective Last 24 Hour Vital Signs Date Time Temp Pulse Resp B/P Pulse Ox O2 Delivery O2 Flow Rate FiO2 02/11/17 12:50 72 145/73 02/11/17 12:49 72 145/73 02/11/17 12:30 97.0 71 20 152/81 95 Room Air 02/11/17 08:14 97.9 72 20 145/73 98 Room Air 02/11/17 07:58 Room Air 02/11/17 07:57 95 Room Air 02/11/17 07:57 65 18 Room Air 02/11/17 04:04 98.6 76 19 150/79 94 Room Air 02/11/17 04:00 75 02/11/17 00:44 72 24 97 Nasal Cannula 3.0 32 02/11/17 00:39 Nasal Cannula 3.0 32 02/11/17 00:38 97 Nasal Cannula 3.0 32 02/11/17 00:37 32 02/11/17 00:36 63 26 97 Nasal Cannula 3.0 32 02/11/17 00:02 98.6 72 19 140/67 94 Room Air 02/11/17 00:00 76 02/10/17 21:32 77 147/98 02/10/17 20:23 68 20 Room Air 21 02/10/17 20:18 98.3 67 20 131/87 96 Room Air 02/10/17 20:00 70 02/10/17 16:00 66 02/10/17 15:21 98.2 63 20 137/68 98 Room Air Intake and Output 02/10/17 02/11/17 19:00 07:00 Intake Total 2024.0 ml Output Total 610 ml 415 ml Balance 1414.0 ml -415 ml Intake Oral 1020 ml IV Total 1004.0 ml Output Urine Total 610 ml 415 ml # Bowel Movements 1 Laboratory Tests 02/10/17 21:00: Stool Occult Blood Negative 02/10/17 22:06: Prothrombin Time 12.9H, Prothromb Time International Ratio 1.3H, Activated Partial Thromboplast Time 37H 02/11/17 07:25: Prothrombin Time 12.6H, Prothromb Time International Ratio 1.2H, White Blood Count 12.0H, Red Blood Count 2.93L, Hemoglobin 9.1L, Hematocrit 27.8L, Mean Corpuscular Volume 95, Mean Corpuscular Hemoglobin 30.9, Mean Corpuscular Hemoglobin Concent 32.7, Red Cell Distribution Width 14.0, Platelet Count 308, Mean Platelet Volume 5.7L, Neutrophils (%) (Auto) 83.4H, Lymphocytes (%) (Auto) 8.3L, Monocytes (%) (Auto) 7.6, Eosinophils (%) (Auto) 0.4, Basophils (%) (Auto ) 0.2, Sodium Level 135, Potassium Level 5.0H, Chloride Level 101, Carbon Dioxide Level 15L, Anion Gap 19H, Blood Urea Nitrogen 94H, Creatinine 3.3H, Estimat Glomerular Filtration Rate 18.7, Glucose Level 143H, Calcium Level 8.2L , Phosphorus Level 5.4H, Ferritin 291H, Total Bilirubin 0.2, Aspartate Amino Transf (AST/SGOT) 28, Alanine Aminotransferase (ALT/SGPT) 30, Alkaline Phosphatase 242H, Ammonia 45, Pro-B-Type Natriuretic Peptide 48347G, Total Protein 8.9H, Albumin 2.3L, Globulin 6.6, Albumin/Globulin Ratio 0.3L, Triglycerides Level 80, Cholesterol Level 59, LDL Cholesterol 17L, HDL Cholesterol 26, Cholesterol/HDL Ratio 2.3L, Amylase Level 25, Lipase 19, Alpha Fetoprotein [Pending], Folate [Pending], Hepatitis B Surface Antigen [Pending], Hepatitis B Surface Antibody [Pending], Hepatitis C Antibody [Pending], HIV (1&2 ) Antibody Rapid Negative Height (Feet): 6 Height (Inches): 0.00 Weight (Pounds): 180 General Appearance: WD/WN, no apparent distress EENT: PERRL/EOMI Neck: non-tender, normal alignment, supple Cardiovascular: normal rate, regular rhythm, no JVD Respiratory/Chest: lungs clear Abdomen: normal bowel sounds, non tender, soft Extremities: normal range of motion, non-tender 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
[2017-02-11 15:57] VITALS: BP 137/70
[2017-02-11 16:20] LABS: CREATININE, RANDOM URINE 62.4 mg/dL
--- NOTE | 2017-02-11 16:23 | Diagnostic Imaging Report ---
Indications: Elevated renal function tests Technique: Transabdominal real-time grayscale and duplex Doppler imaging of the kidneys, retroperitoneum, and urinary bladder was performed Findings: Comparison: None Right kidney measures 11.2 cm in length. Normal contour, echotexture, cortical thickness. No stones, other focal lesions, hydronephrosis, or obvious perinephric abnormalities. Left kidney measures 10.3 cm in length. Normal contour, echotexture, cortical thickness. Contains small nodular echogenic shadowing focus interpolar parenchyma left sinus junction. No additional focal lesions, hydronephrosis, or obvious perinephric abnormalities. The intrahepatic portion of inferior vena cava is patent and normal caliber. The urinary bladder is collapsed around a Underwood catheter. IMPRESSION: Nonobstructive left nephrolithiasis Otherwise negative retroperitoneal ultrasound
--- NOTE | 2017-02-11 18:22 | General Progress Note ---
Assessment/Plan Assessment/Plan Assessment - Anemia, likely due to renal failure - OB (-) stools - Agitation - Azotemia - possible EtOH liver disease Recommendations - push po - monitor labs - check AFP - no GI endoscopy planned at this time Subjective Allergies: Coded Allergies: No Known Allergies (Unverified , 02/09/17) Subjective d/w staff assistant still periodically agitated verbally abusive with staff assistant no GI bleeding and OB (-) patient not interested in GI endoscopy Objective Last 24 Hour Vital Signs Date Time Temp Pulse Resp B/P Pulse Ox O2 Delivery O2 Flow Rate FiO2 02/11/17 15:57 97.2 60 20 137/70 98 Room Air 02/11/17 12:50 72 145/73 02/11/17 12:49 72 145/73 02/11/17 12:30 97.0 71 20 152/81 95 Room Air 02/11/17 08:14 97.9 72 20 145/73 98 Room Air 02/11/17 07:58 Room Air 02/11/17 07:57 95 Room Air 02/11/17 07:57 65 18 Room Air 02/11/17 04:04 98.6 76 19 150/79 94 Room Air 02/11/17 04:00 75 02/11/17 00:44 72 24 97 Nasal Cannula 3.0 32 02/11/17 00:39 Nasal Cannula 3.0 32 02/11/17 00:38 97 Nasal Cannula 3.0 32 02/11/17 00:37 32 02/11/17 00:36 63 26 97 Nasal Cannula 3.0 32 02/11/17 00:02 98.6 72 19 140/67 94 Room Air 02/11/17 00:00 76 02/10/17 21:32 77 147/98 02/10/17 20:23 68 20 Room Air 21 02/10/17 20:18 98.3 67 20 131/87 96 Room Air 02/10/17 20:00 70 Intake and Output 02/10/17 02/11/17 19:00 07:00 Intake Total 2024.0 ml Output Total 610 ml 415 ml Balance 1414.0 ml -415 ml Intake Oral 1020 ml IV Total 1004.0 ml Output Urine Total 610 ml 415 ml # Bowel Movements 1 Laboratory Tests 02/10/17 21:00: Stool Occult Blood Negative 02/10/17 22:06: Prothrombin Time 12.9H, Prothromb Time International Ratio 1.3H, Activated Partial Thromboplast Time 37H 02/11/17 07:25: Prothrombin Time 12.6H, Prothromb Time International Ratio 1.2H, White Blood Count 12.0H, Red Blood Count 2.93L, Hemoglobin 9.1L, Hematocrit 27.8L, Mean Corpuscular Volume 95, Mean Corpuscular Hemoglobin 30.9, Mean Corpuscular Hemoglobin Concent 32.7, Red Cell Distribution Width 14.0, Platelet Count 308, Mean Platelet Volume 5.7L, Neutrophils (%) (Auto) 83.4H, Lymphocytes (%) (Auto) 8.3L, Monocytes (%) (Auto) 7.6, Eosinophils (%) (Auto) 0.4, Basophils (%) (Auto ) 0.2, Sodium Level 135, Potassium Level 5.0H, Chloride Level 101, Carbon Dioxide Level 15L, Anion Gap 19H, Blood Urea Nitrogen 94H, Creatinine 3.3H, Estimat Glomerular Filtration Rate 18.7, Glucose Level 143H, Calcium Level 8.2L , Phosphorus Level 5.4H, Ferritin 291H, Total Bilirubin 0.2, Aspartate Amino Transf (AST/SGOT) 28, Alanine Aminotransferase (ALT/SGPT) 30, Alkaline Phosphatase 242H, Ammonia 45, Pro-B-Type Natriuretic Peptide 63874A, Total Protein 8.9H, Albumin 2.3L, Globulin 6.6, Albumin/Globulin Ratio 0.3L, Triglycerides Level 80, Cholesterol Level 59, LDL Cholesterol 17L, HDL Cholesterol 26, Cholesterol/HDL Ratio 2.3L, Amylase Level 25, Lipase 19, Alpha Fetoprotein [Pending], Folate [Pending], Hepatitis B Surface Antigen [Pending], Hepatitis B Surface Antibody [Pending], Hepatitis C Antibody [Pending], HIV (1&2 ) Antibody Rapid Negative 02/11/17 15:20: Urine Random Total Protein > 183, Urine Creatinine 62.4, Urine Immunofixation [ Pending] Height (Feet): 6 Height (Inches): 0.00 Weight (Pounds): 180 Objective WDWN NCAT supple CTA RRR Soft NT ND no edema BESS HOGAN Feb 11, 2017 18:22
[2017-02-11 20:00] VITALS: BP 139/71
[2017-02-11] MEDS ORDERED: Epogen (for ESRD on dialysis) SUBQ SCH (21:00)
[2017-02-12] VITALS: BP 137/72
[2017-02-12 00:55] LABS: CREATININE 3.3 mg/dL (0.7-1.2); GLOMERULAR FILTRATION RATE 18.7 mL/min (>60)
[2017-02-12] MEDS: Piperacillin/Tazobactam 3.375 GM in NS 110 ML IVPB SCH ×2 (02:09→14:49)
[2017-02-12 04:00] VITALS: BP 135/68
[2017-02-12] MEDS: NovoLOG Insulin Flexpen SUBQ SCH ×4 (06:31→21:10)
[2017-02-12 08:00] VITALS: BP 134/74
[2017-02-12 08:16] LABS: CALCIUM 8.3 mg/dL (8.6-10.2); CREATININE 3.1 mg/dL (0.7-1.2); GLOMERULAR FILTRATION RATE 20.1 mL/min (>60)
[2017-02-12 08:39] LABS: BASOPHILS % (AUTO) 0.3 % (0.0-2.0); EOSINOPHILS % (AUTO) 1.5 % (0.0-3.0); LYMPHOCYTES % (AUTO) 12.9 % (20.0-45.0); MEAN CORPUSCULAR HEMOGLOBIN 30.1 PG (27.0-31.0); MEAN CORPUSCULAR HGB CONC 31.8 G/DL (32.0-36.0); MEAN CORPUSCULAR VOLUME 95 FL (80-99); MEAN PLATELET VOLUME 6.1 FL (6.5-10.1); NEUTROPHILS % (AUTO) 76.2 % (45.0-75.0); PLATELET COUNT 286 K/UL (150-450); RED BLOOD COUNT 2.99 M/UL (4.70-6.10); RED CELL DISTRIBUTION WIDTH 13.7 % (11.6-14.8)
[2017-02-12] MEDS: Carvedilol 25mg Tab ORAL SCH ×2 (09:00→21:06)
[2017-02-12] MEDS: Ascorbic Acid 500mg tab ORAL SCH (09:00)
[2017-02-12] MEDS: Vitamin A&D Oint 2oz Tube TOPIC SCH ×2 (09:00→21:05)
[2017-02-12] MEDS: Zinc Sulfate 220mg cap ORAL SCH (09:00)
[2017-02-12] MEDS: Thiamine 100mg tab ORAL SCH (09:00)
--- NOTE | 2017-02-12 09:38 | Podiatric Progress Note ---
Assessment/Plan Patient Sukumar Ceja is a 66 year old male who was admitted on Feb 09, 2017 at 12:00 with Problems: Status: unchanged Assessment/Plan Continue local wound care Debridement right heel ulcer pending C&S pending Cont Zosyn IV Subjective ROS Limited/Unobtainable: No Constitutional: pain same, elevating limb Allergies: Coded Allergies: No Known Allergies (Unverified , 02/09/17) Objective Exam Last 24 Hour Vital Signs Date Time Temp Pulse Resp B/P Pulse Ox O2 Delivery O2 Flow Rate FiO2 02/12/17 09:01 62 134/74 02/12/17 09:00 60 134/74 02/12/17 08:00 97.3 62 17 134/74 100 Room Air 02/12/17 04:00 63 02/12/17 04:00 97.9 66 18 135/68 96 Room Air 02/12/17 00:00 63 02/12/17 00:00 97.7 60 18 137/72 95 Room Air 02/11/17 20:36 65 139/71 02/11/17 20:00 97.2 65 20 139/71 95 Room Air 02/11/17 20:00 67 02/11/17 19:37 Room Air 02/11/17 19:36 96 Room Air 02/11/17 19:36 75 18 Room Air 02/11/17 15:57 97.2 60 20 137/70 98 Room Air 02/11/17 12:50 72 145/73 02/11/17 12:49 72 145/73 02/11/17 12:30 97.0 71 20 152/81 95 Room Air Laboratory Tests Test 02/11/17 15:20 02/12/17 06:40 02/12/17 06:50 Urine Random Total Protein > 183 mg/dL Urine Creatinine 62.4 mg/dL Urine Immunofixation Pending Sodium Level 139 mEQ/L (135-145) Potassium Level 5.0 mEQ/L (3.4-4.9) H Chloride Level 105 mEQ/L (98-107) Carbon Dioxide Level 16 mEQ/L (20-30) L Anion Gap 18 (5-15) H Blood Urea Nitrogen 81 mg/dL (7-23) H Creatinine 3.1 mg/dL (0.7-1.2) H Estimat Glomerular Filtration Rate 20.1 mL/min (>60) Glucose Level 161 mg/dL (74-106) H Calcium Level 8.3 mg/dL (8.6-10.2) L White Blood Count 8.0 K/UL (4.8-10.8) Red Blood Count 2.99 M/UL (4.70-6.10) L Hemoglobin 9.0 G/DL (14.2-18.0) L Hematocrit 28.4 % (42.0-52.0) L Mean Corpuscular Volume 95 FL (80-99) Mean Corpuscular Hemoglobin 30.1 PG (27.0-31.0) Mean Corpuscular Hemoglobin Concent 31.8 G/DL (32.0-36.0) L Red Cell Distribution Width 13.7 % (11.6-14.8) Platelet Count 286 K/UL (150-450) Mean Platelet Volume 6.1 FL (6.5-10.1) L Neutrophils (%) (Auto) 76.2 % (45.0-75.0) H Lymphocytes (%) (Auto) 12.9 % (20.0-45.0) L Monocytes (%) (Auto) 9.0 % (1.0-10.0) Eosinophils (%) (Auto) 1.5 % (0.0-3.0) Basophils (%) (Auto) 0.3 % (0.0-2.0) Microbiology Date/Time Source Procedure Growth Status 02/09/17 11:30 Nasal Nares MRSA Culture - Final NO METHICILLIN RESISTANT STAPH AUREUS... Complete 02/11/17 15:20 Stool Clostridium difficile Toxin Assay - Final Complete 02/10/17 14:06 Urine,Clean Catch Urine Culture - Preliminary NO GROWTH Resulted 02/09/17 11:30 Rectum VRE Culture - Final Enterococcus Faecium - Vre Complete JOSE TIRADO Feb 12, 2017 09:38
[2017-02-12 10:11] LABS: CREATININE 3.3 mg/dL (0.7-1.2); GLOMERULAR FILTRATION RATE 18.7 mL/min (>60)
--- NOTE | 2017-02-12 11:48 | General Progress Note ---
Assessment/Plan Assessment/Plan IMPRESSION: 1. Leukocytosis. 2. Evidence of metabolic acidosis. 3. Concerns for a possibility of underlying sepsis syndrome. 4. Hyperglycemia. 5. Renal failure, possible acute on chronic. 6. Elevated alcohol phosphatase, unclear etiology. 7. Significant anemia, 8. Hepatitis C 9. possible cystitis 10. diabetes 11. acute on chronic encephalopathy 12. heel ulcer with possible osteo RECOMMENDATIONS: 1. appreciate GI-no EGD planned 2. Empiric antibiotics. and defer to ID 3. IV hydration with caution. 4. Renal followup and recommendations. noted; monitor for improvement 5. penitentiary medications . 6. follow up imaging for clearing 7. monitor findings and stabilize impression, plan, and exam edited and reviewed in detail care discussed with RN Subjective Allergies: Coded Allergies: No Known Allergies (Unverified , 02/09/17) Subjective still with ongoing confusion disheveled care noted and discussed consultants appreciated and care discussed Objective Last 24 Hour Vital Signs Date Time Temp Pulse Resp B/P Pulse Ox O2 Delivery O2 Flow Rate FiO2 02/12/17 09:08 94 Room Air 02/12/17 09:08 Room Air 02/12/17 09:08 65 18 Room Air 02/12/17 09:01 62 134/74 02/12/17 09:00 60 134/74 02/12/17 08:00 97.3 62 17 134/74 100 Room Air 02/12/17 04:00 63 02/12/17 04:00 97.9 66 18 135/68 96 Room Air 02/12/17 00:00 63 02/12/17 00:00 97.7 60 18 137/72 95 Room Air 02/11/17 20:36 65 139/71 02/11/17 20:00 97.2 65 20 139/71 95 Room Air 02/11/17 20:00 67 02/11/17 19:37 Room Air 02/11/17 19:36 96 Room Air 02/11/17 19:36 75 18 Room Air 02/11/17 15:57 97.2 60 20 137/70 98 Room Air 02/11/17 12:50 72 145/73 02/11/17 12:49 72 145/73 02/11/17 12:30 97.0 71 20 152/81 95 Room Air Intake and Output 02/11/17 02/12/17 18:59 06:59 Intake Total 240 ml 1220.0 ml Output Total 800 ml 400 ml Balance -560 ml 820.0 ml Intake Oral 240 ml IV Total 1220.0 ml Output Urine Total 800 ml 400 ml # Bowel Movements 2 5 Laboratory Tests 02/11/17 15:20: Urine Random Total Protein > 183, Urine Creatinine 62.4, Urine Immunofixation [ Pending] 02/12/17 06:40: Sodium Level 139, Potassium Level 5.0H, Chloride Level 105, Carbon Dioxide Level 16L, Anion Gap 18H, Blood Urea Nitrogen 81H, Creatinine 3.1H, Estimat Glomerular Filtration Rate 20.1, Glucose Level 161H, Calcium Level 8.3L 02/12/17 06:50: White Blood Count 8.0, Red Blood Count 2.99L, Hemoglobin 9.0L, Hematocrit 28.4L , Mean Corpuscular Volume 95, Mean Corpuscular Hemoglobin 30.1, Mean Corpuscular Hemoglobin Concent 31.8L, Red Cell Distribution Width 13.7, Platelet Count 286, Mean Platelet Volume 6.1L, Neutrophils (%) (Auto) 76.2H, Lymphocytes (%) (Auto) 12.9L, Monocytes (%) (Auto) 9.0, Eosinophils (%) (Auto) 1.5, Basophils (%) (Auto) 0.3 Height (Feet): 6 Height (Inches): 0.00 Weight (Pounds): 180 Objective GENERAL: The patient is a well-developed male, in no acute distress.. HEENT: Fairly negative. Extraocular movements are intact. Pupils are equal and reactive. NECK: Otherwise supple. LUNGS: some persistent rhonchi. No wheezes. reduced breath sounds CARDIAC: Normal S1 and S2. Regular rhythm without murmurs, rubs, or gallops. ABDOMEN: Soft, nontender, and nondistended. no HSM EXTREMITIES: No cyanosis. No clubbing. NEUROLOGIC: Alert, responsive, and appears to be nonfocal. reviewed and edited KELSEA DIAL Feb 12, 2017 11:48
[2017-02-12 12:15] VITALS: BP 129/82
--- NOTE | 2017-02-12 13:35 | General Progress Note ---
Assessment/Plan Assessment/Plan Assessment - Anemia, likely due to renal failure - OB (-) stools - Agitation - Azotemia - Hepatitis C Recommendations - push po - monitor labs --> H&H stable - check AFP --> normal Subjective Allergies: Coded Allergies: No Known Allergies (Unverified , 02/09/17) Subjective d/w workforce staffing advisor more calm today no events overnight Objective Last 24 Hour Vital Signs Date Time Temp Pulse Resp B/P Pulse Ox O2 Delivery O2 Flow Rate FiO2 02/12/17 12:15 97.8 66 18 129/82 98 02/12/17 09:08 94 Room Air 02/12/17 09:08 Room Air 02/12/17 09:08 65 18 Room Air 02/12/17 09:01 62 134/74 02/12/17 09:00 60 134/74 02/12/17 08:00 97.3 62 17 134/74 100 Room Air 02/12/17 04:00 63 02/12/17 04:00 97.9 66 18 135/68 96 Room Air 02/12/17 00:00 63 02/12/17 00:00 97.7 60 18 137/72 95 Room Air 02/11/17 20:36 65 139/71 02/11/17 20:00 97.2 65 20 139/71 95 Room Air 02/11/17 20:00 67 02/11/17 19:37 Room Air 02/11/17 19:36 96 Room Air 02/11/17 19:36 75 18 Room Air 02/11/17 15:57 97.2 60 20 137/70 98 Room Air Intake and Output 02/11/17 02/12/17 19:00 07:00 Intake Total 240 ml 1220.0 ml Output Total 800 ml 400 ml Balance -560 ml 820.0 ml Intake Oral 240 ml IV Total 1220.0 ml Output Urine Total 800 ml 400 ml # Bowel Movements 2 5 Laboratory Tests 02/11/17 15:20: Urine Random Total Protein > 183, Urine Creatinine 62.4, Urine Immunofixation [ Pending] 02/12/17 06:40: Sodium Level 139, Potassium Level 5.0H, Chloride Level 105, Carbon Dioxide Level 16L, Anion Gap 18H, Blood Urea Nitrogen 81H, Creatinine 3.1H, Estimat Glomerular Filtration Rate 20.1, Glucose Level 161H, Calcium Level 8.3L 02/12/17 06:50: White Blood Count 8.0, Red Blood Count 2.99L, Hemoglobin 9.0L, Hematocrit 28.4L , Mean Corpuscular Volume 95, Mean Corpuscular Hemoglobin 30.1, Mean Corpuscular Hemoglobin Concent 31.8L, Red Cell Distribution Width 13.7, Platelet Count 286, Mean Platelet Volume 6.1L, Neutrophils (%) (Auto) 76.2H, Lymphocytes (%) (Auto) 12.9L, Monocytes (%) (Auto) 9.0, Eosinophils (%) (Auto) 1.5, Basophils (%) (Auto) 0.3 Height (Feet): 6 Height (Inches): 0.00 Weight (Pounds): 180 Objective WDWN NCAT supple CTA RRR Soft NT ND no edema BESS HOGAN Feb 12, 2017 13:35
[2017-02-12] MEDS: Albuterol ud Inhalation HHN PRN ×2 (13:47→17:55)
--- NOTE | 2017-02-12 15:07 | Nephrology Progress Note ---
Assessment/Plan Assessment 1) CKD V 2)Proteinuria 3) Diarrhea 4) not dehydrated clinically Plan: Awaiting UIEP Continue current measures Might need HD soon Subjective Subjective No c/p opr sob, Urine protein to creat ratio is 3.6 Objective Objective Last 24 Hour Vital Signs Date Time Temp Pulse Resp B/P Pulse Ox O2 Delivery O2 Flow Rate FiO2 02/12/17 13:57 75 24 97 Nasal Cannula 2.0 28 02/12/17 13:47 65 22 95 Nasal Cannula 3.0 32 02/12/17 12:15 97.8 66 18 129/82 98 02/12/17 09:08 94 Room Air 02/12/17 09:08 Room Air 02/12/17 09:08 65 18 Room Air 02/12/17 09:01 62 134/74 02/12/17 09:00 60 134/74 02/12/17 08:00 97.3 62 17 134/74 100 Room Air 02/12/17 04:00 63 02/12/17 04:00 97.9 66 18 135/68 96 Room Air 02/12/17 00:00 63 02/12/17 00:00 97.7 60 18 137/72 95 Room Air 02/11/17 20:36 65 139/71 02/11/17 20:00 97.2 65 20 139/71 95 Room Air 02/11/17 20:00 67 02/11/17 19:37 Room Air 02/11/17 19:36 96 Room Air 02/11/17 19:36 75 18 Room Air 02/11/17 15:57 97.2 60 20 137/70 98 Room Air Intake and Output 02/11/17 02/12/17 19:00 07:00 Intake Total 240 ml 1220.0 ml Output Total 800 ml 400 ml Balance -560 ml 820.0 ml Intake Oral 240 ml IV Total 1220.0 ml Output Urine Total 800 ml 400 ml # Bowel Movements 2 5 Laboratory Tests 02/11/17 15:20: Urine Random Total Protein > 183, Urine Creatinine 62.4, Urine Immunofixation [ Pending] 02/12/17 06:40: Sodium Level 139, Potassium Level 5.0H, Chloride Level 105, Carbon Dioxide Level 16L, Anion Gap 18H, Blood Urea Nitrogen 81H, Creatinine 3.1H, Estimat Glomerular Filtration Rate 20.1, Glucose Level 161H, Calcium Level 8.3L 02/12/17 06:50: White Blood Count 8.0, Red Blood Count 2.99L, Hemoglobin 9.0L, Hematocrit 28.4L , Mean Corpuscular Volume 95, Mean Corpuscular Hemoglobin 30.1, Mean Corpuscular Hemoglobin Concent 31.8L, Red Cell Distribution Width 13.7, Platelet Count 286, Mean Platelet Volume 6.1L, Neutrophils (%) (Auto) 76.2H, Lymphocytes (%) (Auto) 12.9L, Monocytes (%) (Auto) 9.0, Eosinophils (%) (Auto) 1.5, Basophils (%) (Auto) 0.3 Height (Feet): 6 Height (Inches): 0.00 Weight (Pounds): 180 General Appearance: WD/WN, no apparent distress, alert EENT: PERRL/EOMI Neck: non-tender, supple Cardiovascular: normal rate, regular rhythm, no JVD Respiratory/Chest: lungs clear Abdomen: non tender, soft Extremities: normal range of motion 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
[2017-02-12 16:00] VITALS: BP 162/82
[2017-02-12 20:00] VITALS: BP 148/86
[2017-02-12] MEDS: Norco 5mg/325mg tab ORAL PRN (21:06)
[2017-02-13] VITALS: BP_SYST 140; BP_DIAS 70; BP_DIAS 71
[2017-02-13] MEDS: Piperacillin/Tazobactam 3.375 GM in NS 110 ML IVPB SCH ×2 (02:34→14:58)
[2017-02-13 04:00] VITALS: BP 156/74
[2017-02-13] MEDS: NovoLOG Insulin Flexpen SUBQ SCH ×4 (06:33→20:52)
[2017-02-13 08:00] VITALS: BP 142/60
[2017-02-13] MEDS: Ascorbic Acid 500mg tab ORAL SCH (08:17)
[2017-02-13] MEDS: Thiamine 100mg tab ORAL SCH (08:17)
[2017-02-13] MEDS: Zinc Sulfate 220mg cap ORAL SCH (08:17)
[2017-02-13] MEDS: Carvedilol 25mg Tab ORAL SCH ×2 (08:18→20:50)
[2017-02-13] MEDS: Vitamin A&D Oint 2oz Tube TOPIC SCH ×2 (08:18→20:51)
[2017-02-13 10:11] LABS: BASOPHILS % (AUTO) 0.3 % (0.0-2.0); EOSINOPHILS % (AUTO) 1.5 % (0.0-3.0); LYMPHOCYTES % (AUTO) 13.8 % (20.0-45.0); MEAN CORPUSCULAR HEMOGLOBIN 30.6 PG (27.0-31.0); MEAN CORPUSCULAR VOLUME 96 FL (80-99); MEAN PLATELET VOLUME 5.2 FL (6.5-10.1); MONOCYTES % (AUTO) 8.7 % (1.0-10.0); NEUTROPHILS % (AUTO) 75.6 % (45.0-75.0); PLATELET COUNT 258 K/UL (150-450); RED BLOOD COUNT 2.91 M/UL (4.70-6.10); RED CELL DISTRIBUTION WIDTH 13.6 % (11.6-14.8)
--- NOTE | 2017-02-13 10:15 | Infectious Diseases Prog Note ---
Assessment/Plan Assessment/Plan A 1. pneumonia 2. renal failure, CKD 3. Hepatitis C 4. 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 continue Zosyn 2. deep tissue/bone cultures 3. Add IV Vancomycin Subjective ROS Limited/Unobtainable: Yes Allergies: Coded Allergies: No Known Allergies (Unverified , 02/09/17) Objective Vital Signs Last 24 Hour Vital Signs Date Time Temp Pulse Resp B/P Pulse Ox O2 Delivery O2 Flow Rate FiO2 02/13/17 08:18 62 02/13/17 08:17 62 142/60 02/13/17 08:00 97.3 62 17 142/60 95 Room Air 02/13/17 07:16 65 22 Room Air 21 02/13/17 07:16 93 Room Air 21 02/13/17 07:16 Room Air 21 02/13/17 04:00 72 02/13/17 04:00 97.0 72 20 156/74 95 Room Air 02/13/17 00:00 70 02/13/17 00:00 97.3 72 20 140/70 97 Nasal Cannula 2.0 02/13/17 00:00 97.3 72 16 140/71 90 Room Air 02/12/17 21:06 75 148/86 02/12/17 20:00 79 02/12/17 20:00 97.0 75 20 148/86 96 Nasal Cannula 2.0 02/12/17 19:15 97 Nasal Cannula 2.0 28 02/12/17 19:15 72 22 Nasal Cannula 2.0 28 02/12/17 19:15 Nasal Cannula 2.0 28 02/12/17 18:05 78 24 97 Nasal Cannula 2.0 28 02/12/17 17:55 69 25 95 Nasal Cannula 3.0 32 02/12/17 16:00 97.2 75 19 162/82 100 Nasal Cannula 2.0 02/12/17 16:00 73 02/12/17 13:57 75 24 97 Nasal Cannula 2.0 28 02/12/17 13:47 65 22 95 Nasal Cannula 3.0 32 02/12/17 12:15 97.8 66 18 129/82 98 02/12/17 12:00 71 Height (Feet): 6 Height (Inches): 0.00 Weight (Pounds): 180 General Appearance: no acute distress HEENT: mucous membranes moist Respiratory/Chest: other - few rhonchi Cardiovascular: normal rate Abdomen: soft, non tender Extremities: no edema Skin: ulcers, other - Stage 4 R heel, left big toe Neurologic/Psychiatric: other - sleeping Microbiology Date/Time Source Procedure Growth Status 02/10/17 11:15 Blood Not Otherwise Specified Blood Culture - Preliminary NO GROWTH AFTER 48 HOURS Resulted 02/10/17 10:45 Blood Blood Culture - Preliminary NO GROWTH AFTER 48 HOURS Resulted 02/11/17 15:20 Stool Clostridium difficile Toxin Assay - Final Complete 02/10/17 14:06 Urine,Clean Catch Urine Culture - Final Complete Laboratory Tests Test 02/13/17 09:50 White Blood Count Pending Red Blood Count Pending Hemoglobin Pending Hematocrit Pending Mean Corpuscular Volume Pending Mean Corpuscular Hemoglobin Pending Mean Corpuscular Hemoglobin Concent Pending Red Cell Distribution Width Pending Platelet Count Pending Mean Platelet Volume Pending Neutrophils (%) (Auto) Pending Lymphocytes (%) (Auto) Pending Monocytes (%) (Auto) Pending Eosinophils (%) (Auto) Pending Basophils (%) (Auto) Pending Sodium Level Pending Potassium Level Pending Chloride Level Pending Carbon Dioxide Level Pending Blood Urea Nitrogen Pending Creatinine Pending Estimat Glomerular Filtration Rate Pending Glucose Level Pending Calcium Level Pending Current Medications Medications (Trade) Dose Ordered Sig/Loulou Route PRN Reason Start Time Stop Time Status Last Admin Dose Admin Acetaminophen (Tylenol) 650 mg Q4H PRN ORAL Mild Pain/Temp > 100.5 02/09/17 18:45 03/11/17 18:44 Acetaminophen/ Hydrocodone Bitart ([place] 5/325) 1 tab Q4H PRN ORAL Moderate Pain (Pain Scale 4-6) 02/09/17 18:45 02/16/17 18:44 02/12/17 21:06 Al Hydroxide/Mg Hydroxide (Mylanta) 30 ml Q4H PRN ORAL Abdominal cramps 02/09/17 18:45 03/11/17 18:44 Albuterol Sulfate (Proventil) 2.5 mg Q4H PRN HHN Shortness of Breath 02/09/17 18:45 02/14/17 18:44 02/12/17 17:55 Amlodipine Besylate (Norvasc) 5 mg DAILY ORAL 02/10/17 09:30 03/12/17 09:29 02/13/17 08:17 Ascorbic Acid (Vitamin C) 500 mg DAILY ORAL 02/10/17 09:30 03/12/17 09:29 02/13/17 08:17 Carvedilol (Coreg) 25 mg EVERY 12 HOURS ORAL 02/10/17 09:30 03/12/17 09:29 02/12/17 21:06 Dextrose STAT PRN IV Hypoglycemia 02/09/17 19:00 03/11/17 18:59 Epoetin Wagner (Procrit (for ESRD on dialysis)) 10,000 units TUE-TUE-TUE SUBQ 02/11/17 21:00 03/13/17 20:59 02/11/17 20:36 Folic Acid (Folate) 1 mg DAILY ORAL 02/10/17 09:30 03/12/17 09:29 02/13/17 08:17 Insulin Aspart (NovoLOG) BEFORE MEALS AND HS SUBQ 02/09/17 21:00 03/11/17 20:59 02/13/17 06:33 Multivitamins (Multivitamins) 1 tab DAILY ORAL 02/10/17 09:30 03/12/17 09:29 02/13/17 08:17 Pantoprazole (Protonix) 40 mg DAILY ORAL 02/10/17 09:00 03/12/17 08:59 02/13/17 08:18 Piperacillin Sod/ Tazobactam Sod/ Sodium Chloride (Zosyn/Sodium Chloride) 110 ml @ 27.5 mls/hr Q12H IVPB 02/10/17 14:30 02/17/17 14:29 02/13/17 02:34 Thiamine HCl (Vitamin B1) 100 mg DAILY ORAL 02/10/17 09:30 03/12/17 09:29 02/13/17 08:17 Vitamin A/Vitamin D (A & D Oint) 1 applic EVERY 12 HOURS TOPIC 02/10/17 21:00 03/12/17 20:59 02/13/17 08:18 Zinc Sulfate (Zinc Sulfate) 220 mg DAILY ORAL 02/10/17 09:30 03/12/17 09:29 02/13/17 08:17 Zolpidem Tartrate (Ambien) 5 mg HSPRN PRN ORAL Insomnia 02/09/17 21:00 03/11/17 20:59 HEATHER BOCANEGRA Feb 13, 2017 10:15
--- NOTE | 2017-02-13 10:17 | Diagnostic Imaging Report ---
Indication: Short of breath Technique: XRAY CHEST 1 V. Comparison: 02/10/2017 Findings: The heart remains enlarged. Pulmonary vascular prominence is again seen. There is a right pleural effusion which is seen tracking into the major fissure. Impression: Cardiomegaly with congestive heart failure and right pleural effusion. No significant change from prior examination.
--- NOTE | 2017-02-13 10:25 | General Progress Note ---
Assessment/Plan Assessment/Plan IMPRESSION: 1. Leukocytosis. 2. Evidence of metabolic acidosis. 3. Concerns for a possibility of underlying sepsis syndrome. 4. Hyperglycemia. 5. Renal failure, possible acute on chronic. 6. Elevated alcohol phosphatase, unclear etiology. 7. Significant anemia, 8. Hepatitis C 9. possible cystitis 10. diabetes 11. acute on chronic encephalopathy 12. heel ulcer with possible osteo RECOMMENDATIONS: 1. appreciate GI-no EGD planned 2. Empiric antibiotics. and defer to ID 3. IV hydration dc and diurese with increased edema on cxr 4. Renal followup and recommendations. noted; monitor for improvement 5. correction medications . 6. follow up imaging for clearing 7. monitor findings and stabilize 8. wound care impression, plan, and exam edited and reviewed in detail care discussed with RN Subjective ROS Limited/Unobtainable: Yes Allergies: Coded Allergies: No Known Allergies (Unverified , 02/09/17) Subjective some confusion disheveled care noted and discussed consultants appreciated and care discussed Objective Last 24 Hour Vital Signs Date Time Temp Pulse Resp B/P Pulse Ox O2 Delivery O2 Flow Rate FiO2 02/13/17 08:18 62 02/13/17 08:17 62 142/60 02/13/17 08:00 97.3 62 17 142/60 95 Room Air 02/13/17 07:16 65 22 Room Air 21 02/13/17 07:16 93 Room Air 21 02/13/17 07:16 Room Air 21 02/13/17 04:00 72 02/13/17 04:00 97.0 72 20 156/74 95 Room Air 02/13/17 00:00 70 02/13/17 00:00 97.3 72 20 140/70 97 Nasal Cannula 2.0 02/13/17 00:00 97.3 72 16 140/71 90 Room Air 02/12/17 21:06 75 148/86 02/12/17 20:00 79 02/12/17 20:00 97.0 75 20 148/86 96 Nasal Cannula 2.0 02/12/17 19:15 97 Nasal Cannula 2.0 28 02/12/17 19:15 72 22 Nasal Cannula 2.0 28 02/12/17 19:15 Nasal Cannula 2.0 28 02/12/17 18:05 78 24 97 Nasal Cannula 2.0 28 02/12/17 17:55 69 25 95 Nasal Cannula 3.0 32 02/12/17 16:00 97.2 75 19 162/82 100 Nasal Cannula 2.0 02/12/17 16:00 73 02/12/17 13:57 75 24 97 Nasal Cannula 2.0 28 02/12/17 13:47 65 22 95 Nasal Cannula 3.0 32 02/12/17 12:15 97.8 66 18 129/82 98 02/12/17 12:00 71 Intake and Output 02/12/17 02/13/17 19:00 07:00 Intake Total 1841.66 ml 110.0 ml Output Total 820 ml 600 ml Balance 1021.66 ml -490.0 ml Intake Oral 600 ml IV Total 1241.66 ml 110.0 ml Output Urine Total 820 ml 600 ml # Bowel Movements 1 1 Laboratory Tests 02/13/17 09:50: White Blood Count 9.0, Red Blood Count 2.91L, Hemoglobin 8.9L, Hematocrit 27.8L , Mean Corpuscular Volume 96, Mean Corpuscular Hemoglobin 30.6, Mean Corpuscular Hemoglobin Concent 32.0, Red Cell Distribution Width 13.6, Platelet Count 258, Mean Platelet Volume 5.2L, Neutrophils (%) (Auto) 75.6H, Lymphocytes (%) (Auto) 13.8L, Monocytes (%) (Auto) 8.7, Eosinophils (%) (Auto) 1.5, Basophils (%) (Auto) 0.3, Sodium Level [Pending], Potassium Level [Pending], Chloride Level [Pending], Carbon Dioxide Level [Pending], Blood Urea Nitrogen [ Pending], Creatinine [Pending], Estimat Glomerular Filtration Rate [Pending], Glucose Level [Pending], Calcium Level [Pending] Height (Feet): 6 Height (Inches): 0.00 Weight (Pounds): 180 Objective GENERAL: The patient is a well-developed male, in no acute distress.. HEENT: Fairly negative. Extraocular movements are intact. Pupils are equal and reactive. NECK: Otherwise supple. LUNGS: no rhonchi; No wheezes. reduced breath sounds CARDIAC: Normal S1 and S2. Regular rhythm without murmurs, rubs, or gallops. ABDOMEN: Soft, nontender, and nondistended. no HSM EXTREMITIES: No cyanosis. No clubbing. some edema NEUROLOGIC: Alert, responsive, and appears to be nonfocal. reviewed and edited KELSEA DIAL Feb 13, 2017 10:25
[2017-02-13 10:36] LABS: CALCIUM 8.2 mg/dL (8.6-10.2); CREATININE 2.8 mg/dL (0.7-1.2); GLOMERULAR FILTRATION RATE 22.6 mL/min (>60); POTASSIUM 5.1 mEQ/L (3.4-4.9)
--- NOTE | 2017-02-13 10:44 | General Progress Note ---
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 calm today no events overnight Objective Last 24 Hour Vital Signs Date Time Temp Pulse Resp B/P Pulse Ox O2 Delivery O2 Flow Rate FiO2 02/13/17 08:18 62 02/13/17 08:17 62 142/60 02/13/17 08:00 97.3 62 17 142/60 95 Room Air 02/13/17 07:16 65 22 Room Air 21 02/13/17 07:16 93 Room Air 21 02/13/17 07:16 Room Air 21 02/13/17 04:00 72 02/13/17 04:00 97.0 72 20 156/74 95 Room Air 02/13/17 00:00 70 02/13/17 00:00 97.3 72 20 140/70 97 Nasal Cannula 2.0 02/13/17 00:00 97.3 72 16 140/71 90 Room Air 02/12/17 21:06 75 148/86 02/12/17 20:00 79 02/12/17 20:00 97.0 75 20 148/86 96 Nasal Cannula 2.0 02/12/17 19:15 97 Nasal Cannula 2.0 28 02/12/17 19:15 72 22 Nasal Cannula 2.0 28 02/12/17 19:15 Nasal Cannula 2.0 28 02/12/17 18:05 78 24 97 Nasal Cannula 2.0 28 02/12/17 17:55 69 25 95 Nasal Cannula 3.0 32 02/12/17 16:00 97.2 75 19 162/82 100 Nasal Cannula 2.0 02/12/17 16:00 73 02/12/17 13:57 75 24 97 Nasal Cannula 2.0 28 02/12/17 13:47 65 22 95 Nasal Cannula 3.0 32 02/12/17 12:15 97.8 66 18 129/82 98 02/12/17 12:00 71 Intake and Output 02/12/17 02/13/17 19:00 07:00 Intake Total 1841.66 ml 110.0 ml Output Total 820 ml 600 ml Balance 1021.66 ml -490.0 ml Intake Oral 600 ml IV Total 1241.66 ml 110.0 ml Output Urine Total 820 ml 600 ml # Bowel Movements 1 1 Laboratory Tests 02/13/17 09:50: White Blood Count 9.0, Red Blood Count 2.91L, Hemoglobin 8.9L, Hematocrit 27.8L , Mean Corpuscular Volume 96, Mean Corpuscular Hemoglobin 30.6, Mean Corpuscular Hemoglobin Concent 32.0, Red Cell Distribution Width 13.6, Platelet Count 258, Mean Platelet Volume 5.2L, Neutrophils (%) (Auto) 75.6H, Lymphocytes (%) (Auto) 13.8L, Monocytes (%) (Auto) 8.7, Eosinophils (%) (Auto) 1.5, Basophils (%) (Auto) 0.3, Sodium Level 137, Potassium Level 5.1H, Chloride Level 103, Carbon Dioxide Level 16L, Anion Gap 18H, Blood Urea Nitrogen 72H, Creatinine 2.8H, Estimat Glomerular Filtration Rate 22.6, Glucose Level 165H, Calcium Level 8.2L Height (Feet): 6 Height (Inches): 0.00 Weight (Pounds): 180 Objective WDWN NCAT supple CTA RRR Soft NT ND no edema BESS HOGAN Feb 13, 2017 10:44
[2017-02-13 12:00] VITALS: BP 136/70
[2017-02-13] MEDS ORDERED: Vancomycin 1.5 GM in D5W 325 ML IVPB ONE (12:00)
[2017-02-13] MEDS ORDERED: NS 275ml ONE (13:38)
[2017-02-13 16:00] VITALS: BP 140/80
--- NOTE | 2017-02-13 19:23 | Podiatric Progress Note ---
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 DM P Debridement of superficial necrotic and devitalized tissue performed at bedside Continue local wound care right heel Continue IV antibiotics per ID Deep cultures taken Subjective Allergies: Coded Allergies: No Known Allergies (Unverified , 02/09/17) Objective Exam Last 24 Hour Vital Signs Date Time Temp Pulse Resp B/P Pulse Ox O2 Delivery O2 Flow Rate FiO2 02/13/17 16:00 98.0 70 18 140/80 95 Room Air 02/13/17 12:00 65 02/13/17 12:00 97.2 67 18 136/70 95 Room Air 02/13/17 08:18 62 02/13/17 08:17 62 142/60 02/13/17 08:00 67 02/13/17 08:00 97.3 62 17 142/60 95 Room Air 02/13/17 07:16 65 22 Room Air 21 02/13/17 07:16 93 Room Air 21 02/13/17 07:16 Room Air 21 02/13/17 04:00 72 02/13/17 04:00 97.0 72 20 156/74 95 Room Air 02/13/17 00:00 70 02/13/17 00:00 97.3 72 20 140/70 97 Nasal Cannula 2.0 02/13/17 00:00 97.3 72 16 140/71 90 Room Air 02/12/17 21:06 75 148/86 02/12/17 20:00 79 02/12/17 20:00 97.0 75 20 148/86 96 Nasal Cannula 2.0 02/12/17 19:15 97 Nasal Cannula 2.0 28 02/12/17 19:15 72 22 Nasal Cannula 2.0 28 02/12/17 19:15 Nasal Cannula 2.0 28 Laboratory Tests Test 02/13/17 09:50 White Blood Count 9.0 K/UL (4.8-10.8) Red Blood Count 2.91 M/UL (4.70-6.10) L Hemoglobin 8.9 G/DL (14.2-18.0) L Hematocrit 27.8 % (42.0-52.0) L Mean Corpuscular Volume 96 FL (80-99) Mean Corpuscular Hemoglobin 30.6 PG (27.0-31.0) Mean Corpuscular Hemoglobin Concent 32.0 G/DL (32.0-36.0) Red Cell Distribution Width 13.6 % (11.6-14.8) Platelet Count 258 K/UL (150-450) Mean Platelet Volume 5.2 FL (6.5-10.1) L Neutrophils (%) (Auto) 75.6 % (45.0-75.0) H Lymphocytes (%) (Auto) 13.8 % (20.0-45.0) L Monocytes (%) (Auto) 8.7 % (1.0-10.0) Eosinophils (%) (Auto) 1.5 % (0.0-3.0) Basophils (%) (Auto) 0.3 % (0.0-2.0) Sodium Level 137 mEQ/L (135-145) Potassium Level 5.1 mEQ/L (3.4-4.9) H Chloride Level 103 mEQ/L (98-107) Carbon Dioxide Level 16 mEQ/L (20-30) L Anion Gap 18 (5-15) H Blood Urea Nitrogen 72 mg/dL (7-23) H Creatinine 2.8 mg/dL (0.7-1.2) H Estimat Glomerular Filtration Rate 22.6 mL/min (>60) Glucose Level 165 mg/dL (74-106) H Calcium Level 8.2 mg/dL (8.6-10.2) L Microbiology Date/Time Source Procedure Growth Status 02/10/17 11:15 Blood Not Otherwise Specified Blood Culture - Preliminary NO GROWTH AFTER 48 HOURS Resulted 02/09/17 11:30 Nasal Nares MRSA Culture - Final NO METHICILLIN RESISTANT STAPH AUREUS... Complete 02/11/17 15:20 Stool Clostridium difficile Toxin Assay - Final Complete 02/10/17 14:06 Urine,Clean Catch Urine Culture - Final Complete 02/09/17 11:30 Rectum VRE Culture - Final Enterococcus Faecium - Vre Complete General Appearance: moderate distress Vascular Edema: no edema noted foot (L), 1+ (<2mm) foot (R) Pedal hair present: No Visible vascular abnormality: stasis pigmentation Vascular discoloration: blanchable erythema Temperature: within normal limits Neurological Light touch: sensate bilateral, insensate bilateral Dermatological Dermatological: wound Wound Assessment : Wound location: right, plantar, heel Wound Length (mm): 60 Wound Width (mm): 60 Wynn Classification: 3 deep abcess or osteomye Pressure ulcer stage: IV Non viable tissue type: white/calvert non viable Exposed structure through the: fascia, bone Probes to bone: Yes Exudate Description: sero-sanguineous Exudate Amount: Moderate Wound Margin: undermining, tunneling Malodor: none/absent Skin Surrounding Wound: intact, dark red or purple Cleansing Solution/Irrigant: normal saline Dressing types: packing gauze 0.5" Offloading: non weight bearing JOSE TIRADO Feb 13, 2017 19:23
[2017-02-13 20:12] VITALS: BP 156/74
[2017-02-13] MEDS: Zolpidem 5mg tab ORAL PRN (20:50)
--- NOTE | 2017-02-13 23:20 | General Progress Note ---
Assessment/Plan Assessment/Plan Assessment - Anemia, likely due to renal failure - OB (-) stools - Agitation - Azotemia - Hepatitis C - heel decub Recommendations - push po - monitor labs --> H&H stable - check AFP --> normal - elevated HOB Subjective Allergies: Coded Allergies: No Known Allergies (Unverified , 02/09/17) Subjective d/w staff physical therapist calm today no events overnight Objective Last 24 Hour Vital Signs Date Time Temp Pulse Resp B/P Pulse Ox O2 Delivery O2 Flow Rate FiO2 02/13/17 20:50 76 156/74 02/13/17 20:12 97.3 76 18 156/74 93 Room Air 02/13/17 19:56 Nasal Cannula 2.0 28 02/13/17 19:56 97 Nasal Cannula 2.0 28 02/13/17 19:55 77 22 Nasal Cannula 2.0 28 02/13/17 16:00 98.0 70 18 140/80 95 Room Air 02/13/17 12:00 65 02/13/17 12:00 97.2 67 18 136/70 95 Room Air 02/13/17 08:18 62 02/13/17 08:17 62 142/60 02/13/17 08:00 67 02/13/17 08:00 97.3 62 17 142/60 95 Room Air 02/13/17 07:16 65 22 Room Air 21 02/13/17 07:16 93 Room Air 21 02/13/17 07:16 Room Air 21 02/13/17 04:00 72 02/13/17 04:00 97.0 72 20 156/74 95 Room Air 02/13/17 00:00 70 02/13/17 00:00 97.3 72 20 140/70 97 Nasal Cannula 2.0 02/13/17 00:00 97.3 72 16 140/71 90 Room Air Intake and Output 02/12/17 02/13/17 19:00 07:00 Intake Total 1841.66 ml 110.0 ml Output Total 820 ml 600 ml Balance 1021.66 ml -490.0 ml Intake Oral 600 ml IV Total 1241.66 ml 110.0 ml Output Urine Total 820 ml 600 ml # Bowel Movements 1 1 Laboratory Tests 02/13/17 09:50: White Blood Count 9.0, Red Blood Count 2.91L, Hemoglobin 8.9L, Hematocrit 27.8L , Mean Corpuscular Volume 96, Mean Corpuscular Hemoglobin 30.6, Mean Corpuscular Hemoglobin Concent 32.0, Red Cell Distribution Width 13.6, Platelet Count 258, Mean Platelet Volume 5.2L, Neutrophils (%) (Auto) 75.6H, Lymphocytes (%) (Auto) 13.8L, Monocytes (%) (Auto) 8.7, Eosinophils (%) (Auto) 1.5, Basophils (%) (Auto) 0.3, Sodium Level 137, Potassium Level 5.1H, Chloride Level 103, Carbon Dioxide Level 16L, Anion Gap 18H, Blood Urea Nitrogen 72H, Creatinine 2.8H, Estimat Glomerular Filtration Rate 22.6, Glucose Level 165H, Calcium Level 8.2L Height (Feet): 6 Height (Inches): 0.00 Weight (Pounds): 180 Objective WDWN NCAT supple CTA RRR Soft NT ND no edema BESS HOGAN Feb 13, 2017 23:20
[2017-02-13] MEDS: Norco 5mg/325mg tab ORAL PRN (23:40)
[2017-02-13] MEDS: Albuterol ud Inhalation HHN PRN (23:42)
[2017-02-14 00:15] VITALS: BP 158/85
[2017-02-14] MEDS: Piperacillin/Tazobactam 3.375 GM in NS 110 ML IVPB SCH ×2 (02:58→13:52)
[2017-02-14 04:20] VITALS: BP 159/87
[2017-02-14] MEDS: Norco 5mg/325mg tab ORAL PRN (05:41)
[2017-02-14] MEDS: NovoLOG Insulin Flexpen SUBQ SCH ×4 (05:46→21:21)
[2017-02-14 06:34] LABS: BASOPHILS % (AUTO) 0.3 % (0.0-2.0); EOSINOPHILS % (AUTO) 0.3 % (0.0-3.0); MEAN CORPUSCULAR HEMOGLOBIN 30.5 PG (27.0-31.0); MEAN CORPUSCULAR HGB CONC 31.6 G/DL (32.0-36.0); MEAN CORPUSCULAR VOLUME 97 FL (80-99); MONOCYTES % (AUTO) 6.3 % (1.0-10.0); NEUTROPHILS % (AUTO) 82.1 % (45.0-75.0); PLATELET COUNT 255 K/UL (150-450); RED BLOOD COUNT 3.06 M/UL (4.70-6.10); RED CELL DISTRIBUTION WIDTH 14.1 % (11.6-14.8); WHITE BLOOD COUNT 12.9 K/UL (4.8-10.8)
[2017-02-14 08:09] LABS: ANION GAP 21 (5-15); CALCIUM 8.3 mg/dL (8.6-10.2); CARBON DIOXIDE 14 mEQ/L (20-30); CHLORIDE 105 mEQ/L (98-107); CREATININE 2.9 mg/dL (0.7-1.2); GLOMERULAR FILTRATION RATE 21.7 mL/min (>60); HEMOLYSIS 2; POTASSIUM 5.3 mEQ/L (3.4-4.9); SODIUM 140 mEQ/L (135-145)
[2017-02-14 08:51] VITALS: BP 135/67
--- NOTE | 2017-02-14 08:56 | General Progress Note ---
Assessment/Plan Assessment/Plan IMPRESSION: 1. Leukocytosis. 2. Evidence of metabolic acidosis. 3. Concerns for a possibility of underlying sepsis syndrome. 4. Hyperglycemia. 5. Renal failure, possible acute on chronic. 6. Elevated alcohol phosphatase, unclear etiology. 7. Significant anemia, 8. Hepatitis C 9. possible cystitis 10. diabetes 11. acute on chronic encephalopathy 12. heel ulcer with possible osteo RECOMMENDATIONS: 1. appreciate GI-no EGD planned; no further intervention planned 2. Empiric antibiotics. and defer to ID 3. IV hydration dc and diurese with increased edema on cxr 4. Renal followup and recommendations. noted; monitor for improvement; elevated K 5. correction medications . 6. follow up imaging for clearing; still with significant edema 7. monitor findings and stabilize 8. wound care impression, plan, and exam edited and reviewed in detail care discussed with RN Subjective Allergies: Coded Allergies: No Known Allergies (Unverified , 02/09/17) Subjective some confusion disheveled care noted and discussed consultants appreciated and care discussed Objective Last 24 Hour Vital Signs Date Time Temp Pulse Resp B/P Pulse Ox O2 Delivery O2 Flow Rate FiO2 02/14/17 08:39 Room Air 21 02/14/17 08:39 96 Room Air 21 02/14/17 08:38 64 16 Room Air 96 02/14/17 06:40 98.1 02/14/17 04:20 98.1 77 19 159/87 92 Room Air 02/14/17 00:15 97.2 75 19 158/85 93 Room Air 02/13/17 23:50 60 24 95 Nasal Cannula 2.0 28 02/13/17 23:42 62 25 95 Nasal Cannula 3.0 32 02/13/17 20:50 76 156/74 02/13/17 20:12 97.3 76 18 156/74 93 Room Air 02/13/17 19:56 Nasal Cannula 2.0 28 02/13/17 19:56 97 Nasal Cannula 2.0 28 02/13/17 19:55 77 22 Nasal Cannula 2.0 28 02/13/17 16:00 98.0 70 18 140/80 95 Room Air 02/13/17 12:00 65 02/13/17 12:00 97.2 67 18 136/70 95 Room Air Intake and Output 02/13/17 02/14/17 19:00 07:00 Intake Total 110.0 ml 82.5 ml Output Total 250 ml 250 ml Balance -140.0 ml -167.5 ml IV Total 110.0 ml 82.5 ml Output Urine Total 250 ml 250 ml # Bowel Movements 1 1 Laboratory Tests 02/13/17 09:50: White Blood Count 9.0, Red Blood Count 2.91L, Hemoglobin 8.9L, Hematocrit 27.8L , Mean Corpuscular Volume 96, Mean Corpuscular Hemoglobin 30.6, Mean Corpuscular Hemoglobin Concent 32.0, Red Cell Distribution Width 13.6, Platelet Count 258, Mean Platelet Volume 5.2L, Neutrophils (%) (Auto) 75.6H, Lymphocytes (%) (Auto) 13.8L, Monocytes (%) (Auto) 8.7, Eosinophils (%) (Auto) 1.5, Basophils (%) (Auto) 0.3, Sodium Level 137, Potassium Level 5.1H, Chloride Level 103, Carbon Dioxide Level 16L, Anion Gap 18H, Blood Urea Nitrogen 72H, Creatinine 2.8H, Estimat Glomerular Filtration Rate 22.6, Glucose Level 165H, Calcium Level 8.2L 02/14/17 04:35: White Blood Count 12.9H, Red Blood Count 3.06L, Hemoglobin 9.3L, Hematocrit 29.5L, Mean Corpuscular Volume 97, Mean Corpuscular Hemoglobin 30.5, Mean Corpuscular Hemoglobin Concent 31.6L, Red Cell Distribution Width 14.1, Platelet Count 255, Mean Platelet Volume 6.0L, Neutrophils (%) (Auto) 82.1H, Lymphocytes (%) (Auto) 11.0L, Monocytes (%) (Auto) 6.3, Eosinophils (%) (Auto) 0.3, Basophils (%) (Auto) 0.3, Sodium Level 140, Potassium Level 5.3H, Chloride Level 105, Carbon Dioxide Level 14L, Anion Gap 21H, Blood Urea Nitrogen 73H, Creatinine 2.9H, Estimat Glomerular Filtration Rate 21.7, Glucose Level 122H, Calcium Level 8.3L, Pro-B-Type Natriuretic Peptide > 46017B Height (Feet): 6 Height (Inches): 0.00 Weight (Pounds): 180 Objective GENERAL: The patient is a well-developed male, in no acute distress.. HEENT: Fairly negative. Extraocular movements are intact. Pupils are equal and reactive. NECK: Otherwise supple. LUNGS: no rhonchi; No wheezes. reduced breath sounds CARDIAC: Normal S1 and S2. Regular rhythm without murmurs, rubs, or gallops. ABDOMEN: Soft, nontender, and nondistended. no HSM EXTREMITIES: No cyanosis. No clubbing. some edema NEUROLOGIC: Alert, responsive, and appears to be nonfocal. reviewed and edited KELSEA DIAL Feb 14, 2017 08:56
[2017-02-14] MEDS: Thiamine 100mg tab ORAL SCH (09:08)
[2017-02-14] MEDS: Carvedilol 25mg Tab ORAL SCH ×2 (09:08→21:05)
[2017-02-14] MEDS: Ascorbic Acid 500mg tab ORAL SCH (09:08)
[2017-02-14] MEDS: Zinc Sulfate 220mg cap ORAL SCH (09:08)
[2017-02-14] MEDS: Vitamin A&D Oint 2oz Tube TOPIC SCH ×2 (09:09→21:21)
--- NOTE | 2017-02-14 10:18 | General Progress Note ---
Assessment/Plan Assessment/Plan Assessment - Anemia, likely due to renal failure - OB (-) stools - Agitation - Azotemia - Hepatitis C - heel decub Recommendations - push po - monitor labs --> H&H stable - check AFP --> normal - elevated HOB Subjective Allergies: Coded Allergies: No Known Allergies (Unverified , 02/09/17) Subjective no abdominal complaints no events overnight d/w PMD Objective Last 24 Hour Vital Signs Date Time Temp Pulse Resp B/P Pulse Ox O2 Delivery O2 Flow Rate FiO2 02/14/17 09:08 62 135/67 02/14/17 09:08 62 135/67 02/14/17 08:51 97.2 62 20 135/67 96 Room Air 02/14/17 08:39 Room Air 21 02/14/17 08:39 96 Room Air 21 02/14/17 08:38 64 16 Room Air 96 02/14/17 06:40 98.1 02/14/17 04:20 98.1 77 19 159/87 92 Room Air 02/14/17 00:15 97.2 75 19 158/85 93 Room Air 02/13/17 23:50 60 24 95 Nasal Cannula 2.0 28 02/13/17 23:42 62 25 95 Nasal Cannula 3.0 32 02/13/17 20:50 76 156/74 02/13/17 20:12 97.3 76 18 156/74 93 Room Air 02/13/17 19:56 Nasal Cannula 2.0 28 02/13/17 19:56 97 Nasal Cannula 2.0 28 02/13/17 19:55 77 22 Nasal Cannula 2.0 28 02/13/17 16:00 98.0 70 18 140/80 95 Room Air 02/13/17 12:00 65 02/13/17 12:00 97.2 67 18 136/70 95 Room Air Intake and Output 02/13/17 02/14/17 19:00 07:00 Intake Total 110.0 ml 82.5 ml Output Total 250 ml 250 ml Balance -140.0 ml -167.5 ml IV Total 110.0 ml 82.5 ml Output Urine Total 250 ml 250 ml # Bowel Movements 1 1 Laboratory Tests 02/14/17 04:35: White Blood Count 12.9H, Red Blood Count 3.06L, Hemoglobin 9.3L, Hematocrit 29.5L, Mean Corpuscular Volume 97, Mean Corpuscular Hemoglobin 30.5, Mean Corpuscular Hemoglobin Concent 31.6L, Red Cell Distribution Width 14.1, Platelet Count 255, Mean Platelet Volume 6.0L, Neutrophils (%) (Auto) 82.1H, Lymphocytes (%) (Auto) 11.0L, Monocytes (%) (Auto) 6.3, Eosinophils (%) (Auto) 0.3, Basophils (%) (Auto) 0.3, Sodium Level 140, Potassium Level 5.3H, Chloride Level 105, Carbon Dioxide Level 14L, Anion Gap 21H, Blood Urea Nitrogen 73H, Creatinine 2.9H, Estimat Glomerular Filtration Rate 21.7, Glucose Level 122H, Calcium Level 8.3L, Pro-B-Type Natriuretic Peptide > 36858S Height (Feet): 6 Height (Inches): 0.00 Weight (Pounds): 180 Objective WDWN NCAT supple CTA RRR Soft NT ND no edema BESS HOGAN Feb 14, 2017 10:18
[2017-02-14] MEDS ORDERED: Sodium Polystyrene Sulfonate 15gm Powder ORAL ONE (11:30)
[2017-02-14] MEDS ORDERED: Vancomycin 1.5 GM in D5W 325 ML IVPB ONE (12:00)
--- NOTE | 2017-02-14 12:15 | Infectious Diseases Prog Note ---
Assessment/Plan Assessment/Plan antibiotics : zosyn, iv vancomycin A 1. calcaneal osteomyelitis 2. renal failure improving 3. cirrhosis 4. DM P 1. continue zosyn, iv vancomycin 2. will follow up cultures 3. MRI right foot Subjective ROS Limited/Unobtainable: Yes Allergies: Coded Allergies: No Known Allergies (Unverified , 02/09/17) Objective Vital Signs Last 24 Hour Vital Signs Date Time Temp Pulse Resp B/P Pulse Ox O2 Delivery O2 Flow Rate FiO2 02/14/17 09:08 62 135/67 02/14/17 09:08 62 135/67 02/14/17 08:51 97.2 62 20 135/67 96 Room Air 02/14/17 08:39 Room Air 21 02/14/17 08:39 96 Room Air 21 02/14/17 08:38 64 16 Room Air 96 02/14/17 06:40 98.1 02/14/17 04:20 98.1 77 19 159/87 92 Room Air 02/14/17 00:15 97.2 75 19 158/85 93 Room Air 02/13/17 23:50 60 24 95 Nasal Cannula 2.0 28 02/13/17 23:42 62 25 95 Nasal Cannula 3.0 32 02/13/17 20:50 76 156/74 02/13/17 20:12 97.3 76 18 156/74 93 Room Air 02/13/17 19:56 Nasal Cannula 2.0 28 02/13/17 19:56 97 Nasal Cannula 2.0 28 02/13/17 19:55 77 22 Nasal Cannula 2.0 28 02/13/17 16:00 98.0 70 18 140/80 95 Room Air Height (Feet): 6 Height (Inches): 0.00 Weight (Pounds): 180 Respiratory/Chest: lungs clear Cardiovascular: normal rate, regular rhythm, no gallop/murmur Abdomen: soft, non tender Extremities: no edema Microbiology Date/Time Source Procedure Growth Status 02/11/17 15:20 Stool Clostridium difficile Toxin Assay - Final Complete Laboratory Tests Test 02/14/17 04:35 White Blood Count 12.9 K/UL (4.8-10.8) H Red Blood Count 3.06 M/UL (4.70-6.10) L Hemoglobin 9.3 G/DL (14.2-18.0) L Hematocrit 29.5 % (42.0-52.0) L Mean Corpuscular Volume 97 FL (80-99) Mean Corpuscular Hemoglobin 30.5 PG (27.0-31.0) Mean Corpuscular Hemoglobin Concent 31.6 G/DL (32.0-36.0) L Red Cell Distribution Width 14.1 % (11.6-14.8) Platelet Count 255 K/UL (150-450) Mean Platelet Volume 6.0 FL (6.5-10.1) L Neutrophils (%) (Auto) 82.1 % (45.0-75.0) H Lymphocytes (%) (Auto) 11.0 % (20.0-45.0) L Monocytes (%) (Auto) 6.3 % (1.0-10.0) Eosinophils (%) (Auto) 0.3 % (0.0-3.0) Basophils (%) (Auto) 0.3 % (0.0-2.0) Sodium Level 140 mEQ/L (135-145) Potassium Level 5.3 mEQ/L (3.4-4.9) H Chloride Level 105 mEQ/L (98-107) Carbon Dioxide Level 14 mEQ/L (20-30) L Anion Gap 21 (5-15) H Blood Urea Nitrogen 73 mg/dL (7-23) H Creatinine 2.9 mg/dL (0.7-1.2) H Estimat Glomerular Filtration Rate 21.7 mL/min (>60) Glucose Level 122 mg/dL (74-106) H Calcium Level 8.3 mg/dL (8.6-10.2) L Pro-B-Type Natriuretic Peptide > 94029 pg/mL (0-125) H MARÍA SNIDER Feb 14, 2017 12:15
--- NOTE | 2017-02-14 12:52 | Diagnostic Imaging Report ---
Indication: SOB Technique: One view of the chest Comparison: 02/12/2017 Findings: There is decreased but persistent infiltrate at the right mid and lower lung. There is probably a small amount of pleural fluid on the right. Left lung and pleural space are probably clear. Heart is borderline enlarged. Impression: Improved but persistent right mid and lower lung infiltrate. Probable small right pleural effusion again demonstrated, also possibly improved
[2017-02-14 12:56] VITALS: BP 151/78
--- NOTE | 2017-02-14 14:55 | Nephrology Progress Note ---
Assessment/Plan Assessment 1) CKD V 2)Proteinuria 3) Diarrhea 4) not dehydrated clinically Plan: Awaiting UIEP Continue current measures Subjective Subjective No c/p or sob, creat is 2.2 Objective Objective Last 24 Hour Vital Signs Date Time Temp Pulse Resp B/P Pulse Ox O2 Delivery O2 Flow Rate FiO2 02/14/17 12:56 97.0 60 19 151/78 93 Nasal Cannula 5.0 02/14/17 09:08 62 135/67 02/14/17 09:08 62 135/67 02/14/17 08:51 97.2 62 20 135/67 96 Room Air 02/14/17 08:39 Room Air 21 02/14/17 08:39 96 Room Air 21 02/14/17 08:38 64 16 Room Air 96 02/14/17 06:40 98.1 02/14/17 04:20 98.1 77 19 159/87 92 Room Air 02/14/17 00:15 97.2 75 19 158/85 93 Room Air 02/13/17 23:50 60 24 95 Nasal Cannula 2.0 28 02/13/17 23:42 62 25 95 Nasal Cannula 3.0 32 02/13/17 20:50 76 156/74 02/13/17 20:12 97.3 76 18 156/74 93 Room Air 02/13/17 19:56 Nasal Cannula 2.0 28 02/13/17 19:56 97 Nasal Cannula 2.0 28 02/13/17 19:55 77 22 Nasal Cannula 2.0 28 02/13/17 16:00 98.0 70 18 140/80 95 Room Air Intake and Output 02/13/17 02/14/17 19:00 07:00 Intake Total 110.0 ml 82.5 ml Output Total 250 ml 250 ml Balance -140.0 ml -167.5 ml IV Total 110.0 ml 82.5 ml Output Urine Total 250 ml 250 ml # Bowel Movements 1 1 Laboratory Tests 02/14/17 04:35: White Blood Count 12.9H, Red Blood Count 3.06L, Hemoglobin 9.3L, Hematocrit 29.5L, Mean Corpuscular Volume 97, Mean Corpuscular Hemoglobin 30.5, Mean Corpuscular Hemoglobin Concent 31.6L, Red Cell Distribution Width 14.1, Platelet Count 255, Mean Platelet Volume 6.0L, Neutrophils (%) (Auto) 82.1H, Lymphocytes (%) (Auto) 11.0L, Monocytes (%) (Auto) 6.3, Eosinophils (%) (Auto) 0.3, Basophils (%) (Auto) 0.3, Sodium Level 140, Potassium Level 5.3H, Chloride Level 105, Carbon Dioxide Level 14L, Anion Gap 21H, Blood Urea Nitrogen 73H, Creatinine 2.9H, Estimat Glomerular Filtration Rate 21.7, Glucose Level 122H, Calcium Level 8.3L, Pro-B-Type Natriuretic Peptide > 00682D Height (Feet): 6 Height (Inches): 0.00 Weight (Pounds): 180 General Appearance: WD/WN, no apparent distress EENT: PERRL/EOMI Neck: non-tender Cardiovascular: normal rate, regular rhythm Respiratory/Chest: lungs clear, normal breath sounds Abdomen: non tender Genitourinary/Rectal: normal rectal exam Neurologic: hearing healthcare practitioner II-XII grossly normal DHIRAJ HUSSEIN Feb 14, 2017 14:55
[2017-02-14 16:35] VITALS: BP 140/71
[2017-02-14 18:06] LABS: APPEARANCE,URINE SLIGHTLY CLOUDY; KETONES,URINE NEGATIVE (NEGATIVE); LEUKOCYTE ESTERASE ,URINE 2+ (NEGATIVE); NITRITE,URINE NEGATIVE (NEGATIVE); PH,URINE 5 (4.5-8.0); PROTEIN,URINE 4+ (NEGATIVE); UROBILINOGEN,URINE NORMAL MG/DL (0.0-1.0)
[2017-02-14 18:19] LABS: BACTERIA,URINE MODERATE /HPF
[2017-02-14 18:20] LABS: AMORPHOUS SEDIMENT,UR FEW /LPF
[2017-02-14 20:00] VITALS: BP 127/63
[2017-02-14] MEDS: Epogen (for non ESRD use) SUBQ SCH (21:05)
--- NOTE | 2017-02-14 22:44 | Cardiology Report ---
APPROVED REPORT EKG Measurement Heart [id number] Normal sinus rhythm Nonspecific T wave abnormality Prolonged QT Abnormal ECG
[2017-02-15] VITALS (9 sets, daily range): BP systolic 149–167; BP diastolic 76–97
[2017-02-15] MEDS: Piperacillin/Tazobactam 3.375 GM in NS 110 ML IVPB SCH ×2 (02:44→14:34)
[2017-02-15] MEDS: NovoLOG Insulin Flexpen SUBQ SCH ×4 (06:30→21:00)
[2017-02-15] MEDS ORDERED: Lidocaine 1% Plain 30 ml INJ ONE (06:33)
[2017-02-15] MEDS ORDERED: Dexamethasone 4mg/ml vial ONE (06:33)
[2017-02-15] MEDS ORDERED: Bacitracin 50000 Units Vial ONE (06:34)
[2017-02-15] MEDS ORDERED: Bupivacaine 0.5% Inj 30 ml vial INJ ONE (06:34)
[2017-02-15 07:06] LABS: CALCIUM 8.3 mg/dL (8.6-10.2); CREATININE 2.8 mg/dL (0.7-1.2); GLOMERULAR FILTRATION RATE 22.6 mL/min (>60); POTASSIUM 4.9 mEQ/L (3.4-4.9)
--- NOTE | 2017-02-15 07:07 | Pre-Procedure Note/Attestation ---
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 I attest that, if there was a reasonable possibility of needing a blood transfusion, the patient (or the patient's legal volunteer patient representative) was given the [facility] standardized written summary, pursuant to the Jasvir Agustin Blood Safety Act ([place] Health and Safety Code # 1645, as amended). I attest that I re-evaluated the patient just prior to the surgery and that there has been no change in the patient's H&P, except as documented below: JOSE TIRADO Feb 15, 2017 07:07
--- NOTE | 2017-02-15 07:48 | Anethesia Preoperative Eval ---
Anesthesia Pre-op PMH/ROS General Date of Evaluation: Feb 15, 2017 Time of Evaluation: 07:00 Anesthesiologist: Laure ASA Score: ASA 4 Mallampati Score Class I : Soft palate, uvula, fauces, pillars visible Class II: Soft palate, uvula, fauces visible Class III: Soft palate, base of uvula visible Class IV: Only hard plate visible Mallampati Classification: Class III Surgeon: Albert Diagnosis: R heel osteomyelitis Surgical Procedure: Debridement of R heel wound Anesthesia History: none Social History: smoking - h/o, alcohol use - h/o abuse Family History: no anesthesia problems Allergies: Coded Allergies: No Known Allergies (Unverified , 02/09/17) Past Medical History Cardiovascular: Reports: CAD, HTN, UT, Denies: arrhythmia, other, valve dz Pulmonary: Denies: COPD, GRAYS[place], asthma, other Gastrointestinal/Genitourinary: Reports: CRI, GERD, other - liver cirrosis Neurologic/Psychiatric: Reports: other - encephalopathy, Denies: CVA, TIA, dementia, depression/anxiety Endocrine: Reports: DM, hypothyroidism, Denies: other, steroids HEENT: Denies: [place] (L), [place] (R), cataract (L), cataract (R), glaucoma, other Hematology/Immune: Reports: anemia, Denies: DVT, bleeding disorder, other Musculoskeletal/Integumentary: Reports: DJD, Denies: DDD, OA, RA, edema, other Other: other - malnourished PMH Narrative: as above PSxH Narrative: see chart Anesthesia Pre-op Phys. Exam Physician Exam Last Vital Signs Date Time Temp Pulse Resp B/P Pulse Ox O2 Delivery O2 Flow Rate FiO2 02/15/17 04:00 98.2 81 18 167/81 95 Nasal Cannula 1.5 02/14/17 19:20 21 Constitutional: NAD Neurologic: other - unable to obtaine Cardiovascular: RRR Respiratory: CTA Gastrointestinal: S/NT/ND Airway Exam Mallampati Score: Class III MO: limited Neck: stiff ROM: limited Teeth: missing, broken Dentures: no lower, no upper Anesthesia Pre-op A/P Labs Chemistry Test 02/15/17 05:40 Sodium Level 139 mEQ/L (135-145) Potassium Level 4.9 mEQ/L (3.4-4.9) Chloride Level 105 mEQ/L (98-107) Carbon Dioxide Level 14 mEQ/L (20-30) L Anion Gap 20 (5-15) H Blood Urea Nitrogen 67 mg/dL (7-23) H Creatinine 2.8 mg/dL (0.7-1.2) H Estimat Glomerular Filtration Rate 22.6 mL/min (>60) Glucose Level 104 mg/dL (74-106) Calcium Level 8.3 mg/dL (8.6-10.2) L Studies Pre-op Studies: EKG - SR Risk Assessment & Plan Assessment: ASA 4 Plan: MAC Status Change Before Surgery: No Pre-Antibiotics Drug: Ancef 1gr. Given Within 1 Hr of Incision: Yes Time Given: 07:20 JOSE CARLOS LOPEZ M.D. Feb 15, 2017 07:47
--- NOTE | 2017-02-15 07:55 | Brief Operative Note ---
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
[2017-02-15] MEDS ORDERED: Meperidine 25mg/ml Inj IV PRN (08:00)
--- NOTE | 2017-02-15 08:53 | General Progress Note ---
Assessment/Plan Assessment/Plan Assessment - Anemia, likely due to renal failure - OB (-) stools - Agitation - Azotemia - Hepatitis C - heel decub Recommendations - push po - monitor labs --> H&H stable - check AFP --> normal - elevated HOB Subjective Allergies: Coded Allergies: No Known Allergies (Unverified , 02/09/17) Subjective above noted s/p foot debridement Objective Last 24 Hour Vital Signs Date Time Temp Pulse Resp B/P Pulse Ox O2 Delivery O2 Flow Rate FiO2 02/15/17 08:08 79 18 157/85 100 Nasal Cannula 3.0 02/15/17 08:03 74 18 165/87 100 Simple Mask 6.0 02/15/17 07:58 98.1 75 18 158/88 100 Simple Mask 6.0 02/15/17 04:00 98.2 81 18 167/81 95 Nasal Cannula 1.5 02/15/17 00:00 98.2 72 19 155/97 Nasal Cannula 1.5 02/14/17 21:05 70 127/63 02/14/17 20:00 96.4 70 20 127/63 Room Air 02/14/17 19:20 96 Room Air 21 02/14/17 19:20 Room Air 02/14/17 19:20 65 16 Room Air 02/14/17 16:35 97.0 62 20 140/71 95 Room Air 02/14/17 12:56 97.0 60 19 151/78 93 Nasal Cannula 5.0 02/14/17 09:08 62 135/67 02/14/17 09:08 62 135/67 Intake and Output 02/14/17 02/15/17 19:00 07:00 Intake Total 240 ml 82.5 ml Output Total 300 ml 1150 ml Balance -60 ml -1067.5 ml Intake Oral 240 ml IV Total 82.5 ml Output Urine Total 300 ml 1150 ml # Bowel Movements 2 1 Laboratory Tests 02/14/17 15:50: Urine Color Pale yellow, Urine Appearance Slightly cloudy, Urine pH 5, Urine Specific [place] 1.020, Urine Protein 4+H, Urine Glucose (UA) 1+H, Urine Ketones Negative, Urine Occult Blood 5+H, Urine Nitrite Negative, Urine Bilirubin Negative, Urine Urobilinogen Normal, Urine Leukocyte Esterase 2+H, Urine RBC 10-15H, Urine WBC 5-10H, Urine Squamous Epithelial Cells None, Urine Amorphous Sediment FewH, Urine Bacteria ModerateH 02/14/17 18:12: Random Vancomycin Level 21.5 02/15/17 05:40: Sodium Level 139, Potassium Level 4.9, Chloride Level 105, Carbon Dioxide Level 14L, Anion Gap 20H, Blood Urea Nitrogen 67H, Creatinine 2.8H, Estimat Glomerular Filtration Rate 22.6, Glucose Level 104, Calcium Level 8.3L Height (Feet): 6 Height (Inches): 0.00 Weight (Pounds): 180 Objective WDWN NCAT supple CTA RRR Soft NT ND no edema, dressing BESS HOGAN Feb 15, 2017 08:53
[2017-02-15] MEDS: Vitamin A&D Oint 2oz Tube TOPIC SCH ×3 (09:00→21:27)
--- NOTE | 2017-02-15 09:52 | General Progress Note ---
Assessment/Plan Assessment/Plan IMPRESSION: 1. Leukocytosis. 2. Evidence of metabolic acidosis. 3. Concerns for a possibility of underlying sepsis syndrome. 4. Hyperglycemia. 5. Renal failure, possible acute on chronic. 6. Elevated alcohol phosphatase, unclear etiology. 7. Significant anemia, 8. Hepatitis C 9. possible cystitis 10. diabetes 11. acute on chronic encephalopathy 12. heel ulcer with possible osteo s/p debridement RECOMMENDATIONS: 1. wound care 2. reviewed antibiotics. and defer to ID 3. keep negative; follow up today 4. Renal followup and recommendations. monitor closely 5. half-way medications . 6. follow up imaging for clearing; still with significant edema 7. monitor findings and stabilize 8. dc in am to snf impression, plan, and exam edited and reviewed in detail care discussed with RN Subjective ROS Limited/Unobtainable: Yes Allergies: Coded Allergies: No Known Allergies (Unverified , 02/09/17) Subjective some confusion disheveled care noted and discussed underwent debridement d/w podiatry Objective Last 24 Hour Vital Signs Date Time Temp Pulse Resp B/P Pulse Ox O2 Delivery O2 Flow Rate FiO2 02/15/17 09:24 76 20 Nasal Cannula 2.0 28 02/15/17 09:24 Nasal Cannula 2.0 28 02/15/17 09:24 96 Nasal Cannula 2.0 28 02/15/17 08:58 97.7 76 20 167/76 95 Nasal Cannula 2.0 02/15/17 08:08 79 18 157/85 100 Nasal Cannula 3.0 02/15/17 08:03 74 18 165/87 100 Simple Mask 6.0 02/15/17 07:58 98.1 75 18 158/88 100 Simple Mask 6.0 02/15/17 04:00 98.2 81 18 167/81 95 Nasal Cannula 1.5 02/15/17 00:00 98.2 72 19 155/97 Nasal Cannula 1.5 02/14/17 21:05 70 127/63 02/14/17 20:00 96.4 70 20 127/63 Room Air 02/14/17 19:20 96 Room Air 21 02/14/17 19:20 Room Air 02/14/17 19:20 65 16 Room Air 02/14/17 16:35 97.0 62 20 140/71 95 Room Air 02/14/17 12:56 97.0 60 19 151/78 93 Nasal Cannula 5.0 Intake and Output 02/14/17 02/15/17 19:00 07:00 Intake Total 240 ml 82.5 ml Output Total 300 ml 1150 ml Balance -60 ml -1067.5 ml Intake Oral 240 ml IV Total 82.5 ml Output Urine Total 300 ml 1150 ml # Bowel Movements 2 1 Laboratory Tests 02/14/17 15:50: Urine Color Pale yellow, Urine Appearance Slightly cloudy, Urine pH 5, Urine Specific [place] 1.020, Urine Protein 4+H, Urine Glucose (UA) 1+H, Urine Ketones Negative, Urine Occult Blood 5+H, Urine Nitrite Negative, Urine Bilirubin Negative, Urine Urobilinogen Normal, Urine Leukocyte Esterase 2+H, Urine RBC 10-15H, Urine WBC 5-10H, Urine Squamous Epithelial Cells None, Urine Amorphous Sediment FewH, Urine Bacteria ModerateH 02/14/17 18:12: Random Vancomycin Level 21.5 02/15/17 05:40: Sodium Level 139, Potassium Level 4.9, Chloride Level 105, Carbon Dioxide Level 14L, Anion Gap 20H, Blood Urea Nitrogen 67H, Creatinine 2.8H, Estimat Glomerular Filtration Rate 22.6, Glucose Level 104, Calcium Level 8.3L Height (Feet): 6 Height (Inches): 0.00 Weight (Pounds): 180 Objective GENERAL: The patient is a well-developed male, in no acute distress.. HEENT: Fairly negative. Extraocular movements are intact. Pupils are equal and reactive. NECK: Otherwise supple. LUNGS: no rhonchi; No wheezes. reduced breath sounds CARDIAC: Normal S1 and S2. Regular rhythm without murmurs, rubs, or gallops. ABDOMEN: Soft, nontender, and nondistended. no HSM EXTREMITIES: No cyanosis. No clubbing. some edema; heel dressed NEUROLOGIC: Alert, responsive, and appears to be nonfocal. reviewed and edited KELSEA DIAL Feb 15, 2017 09:52
--- NOTE | 2017-02-15 09:57 | Immediate Post-Op Evaluation ---
Immediate Post-Op Evalulation Immediate Post-Op Evalulation Procedure: Debridement of R heel wound Date of Evaluation: Feb 15, 2017 Time of Evaluation: 08:03 IV Fluids: 300 Blood Products: none Estimated Blood Loss: min Urinary Output: none Blood Pressure Systolic: 143 Blood Pressure Diastolic: 58 Pulse Rate: 72 Respiratory Rate: 20 O2 Sat by Pulse Oximetry: 99 Temperature (Fahrenheit): 97.6 Pain Score (1-10): 1 Nausea: No Vomiting: No Complications none Patient Status: reacts, patent, none Hydration Status: adequate JOSE CARLOS LOPEZ M.D. Feb 15, 2017 09:57
--- NOTE | 2017-02-15 10:08 | Operative Note - Dictated ---
DATE OF OPERATION: 02/15/2017 SURGEON: Jag Price D.P.M. ANESTHESIOLOGIST: Darren Kelsey M.D. ANESTHESIA: Local standby. PREOPERATIVE DIAGNOSES: 1. Stage IV heel ulcer right foot. 2. Probable osteomyelitis right calcaneus. POSTOPERATIVE DIAGNOSES: 1. Stage IV heel ulcer right foot. 2. Probable osteomyelitis right calcaneus. PROCEDURE PERFORMED: Debridement of right heel ulcer with bone cultures right calcaneus. Description Of The Operation: The patient was brought to the operating room, and was placed on the operating room table in a lateral position. IV sedation was administered by the anesthesiologist. Local anesthesia consisting of a 50:50 mix of 1% Xylocaine plain and 0.5% Marcaine plain total of 20 mL was administered to the right ankle. The foot and ankle were prepped and draped in usual sterile manner. Attention was then directed to the right heel. Cultures, deep soft tissue cultures, aerobic and anaerobic were obtained. At this point, the wound was debrided all the necrotic skin along the wound margin, which was ischemic and necrotic was removed. The deep subcutaneous tissue, which included fat fascia and the deep muscles, which were necrotic were all debrided and removed at the level of the bone. A rongeur was utilized to obtain bone cultures from the plantar aspect of the right calcaneus. Bone chips were sent in dry bottles for aerobic and anaerobic cultures. At this point, any the remaining devitalized tissue, which was observed was excised in total. The wound was then copiously flushed using triple antibiotic irrigation. The wound was packed utilizing 4 x 4 gauze, and 3 inch and then dressed utilizing dry gauze and 3 inch Kerlix. The patient tolerated the procedure well and left the operating room to recovery room with all vital signs stable and vascular supply of right foot intact. Jag Price D.P.M. DR: Ronald JOB#: [id number] CC:
[2017-02-15] MEDS ORDERED: fentaNYL 100 mcg/2 mL IV ONE (10:37)
[2017-02-15] MEDS ORDERED: Midazolam 2mg/2ml Inj ONE (10:37)
[2017-02-15] MEDS ORDERED: Propofol 10mg/ml 20ml IV ONE (10:37)
[2017-02-15] MEDS ORDERED: Tubing IV Secondary IV ONE (10:57)
--- NOTE | 2017-02-15 11:32 | Infectious Diseases Prog Note ---
Assessment/Plan Assessment/Plan antibiotics : zosyn, iv vancomycin A 1. calcaneal osteomyelitis s/p debridement 2. renal failure improving 3. cirrhosis 4. DM P 1. continue zosyn, iv vancomycin 2. will follow up cultures Subjective ROS Limited/Unobtainable: Yes Allergies: Coded Allergies: No Known Allergies (Unverified , 02/09/17) Objective Vital Signs Last 24 Hour Vital Signs Date Time Temp Pulse Resp B/P Pulse Ox O2 Delivery O2 Flow Rate FiO2 02/15/17 09:57 72 20 99 02/15/17 09:24 76 20 Nasal Cannula 2.0 28 02/15/17 09:24 Nasal Cannula 2.0 28 02/15/17 09:24 96 Nasal Cannula 2.0 28 02/15/17 08:58 97.7 76 20 167/76 95 Nasal Cannula 2.0 02/15/17 08:08 79 18 157/85 100 Nasal Cannula 3.0 02/15/17 08:03 74 18 165/87 100 Simple Mask 6.0 02/15/17 07:58 98.1 75 18 158/88 100 Simple Mask 6.0 02/15/17 04:00 98.2 81 18 167/81 95 Nasal Cannula 1.5 02/15/17 00:00 98.2 72 19 155/97 Nasal Cannula 1.5 02/14/17 21:05 70 127/63 02/14/17 20:00 96.4 70 20 127/63 Room Air 02/14/17 19:20 96 Room Air 21 02/14/17 19:20 Room Air 02/14/17 19:20 65 16 Room Air 02/14/17 16:35 97.0 62 20 140/71 95 Room Air 02/14/17 12:56 97.0 60 19 151/78 93 Nasal Cannula 5.0 Height (Feet): 6 Height (Inches): 0.00 Weight (Pounds): 180 Respiratory/Chest: lungs clear Cardiovascular: normal rate, regular rhythm, no gallop/murmur Abdomen: soft, non tender Extremities: no edema, other - right foot in bandages Microbiology Date/Time Source Procedure Growth Status 02/13/17 19:16 Body Fluid Wound Gram Stain - Final Resulted 02/13/17 19:16 Aerobic Culture - Preliminary Gram Negative Bacillus 1 Gram Positive Cocci Resulted 02/13/17 19:16 Body Fluid Wound Anaerobic Culture Pending Resulted 02/14/17 15:50 Urine,Clean Catch Urine Culture - Preliminary Resulted Laboratory Tests Test 02/14/17 15:50 02/14/17 18:12 02/15/17 05:40 Urine Color Pale yellow Urine Appearance Slightly cloudy Urine pH 5 (4.5-8.0) Urine Specific [place] 1.020 (1.005-1.035) Urine Protein 4+ (NEGATIVE) H Urine Glucose (UA) 1+ (NEGATIVE) H Urine Ketones Negative (NEGATIVE) Urine Occult Blood 5+ (NEGATIVE) H Urine Nitrite Negative (NEGATIVE) Urine Bilirubin Negative (NEGATIVE) Urine Urobilinogen Normal MG/DL (0.0-1.0) Urine Leukocyte Esterase 2+ (NEGATIVE) H Urine RBC 10-15 /HPF (0 - 0) H Urine WBC 5-10 /HPF (0 - 0) H Urine Squamous Epithelial Cells None /LPF (NONE/OCC) Urine Amorphous Sediment Few /LPF (NONE) H Urine Bacteria Moderate /HPF (NONE) H Random Vancomycin Level 21.5 ug/mL Sodium Level 139 mEQ/L (135-145) Potassium Level 4.9 mEQ/L (3.4-4.9) Chloride Level 105 mEQ/L (98-107) Carbon Dioxide Level 14 mEQ/L (20-30) L Anion Gap 20 (5-15) H Blood Urea Nitrogen 67 mg/dL (7-23) H Creatinine 2.8 mg/dL (0.7-1.2) H Estimat Glomerular Filtration Rate 22.6 mL/min (>60) Glucose Level 104 mg/dL (74-106) Calcium Level 8.3 mg/dL (8.6-10.2) MARÍA HALL Feb 15, 2017 11:32
[2017-02-15] MEDS: Zinc Sulfate 220mg cap ORAL SCH ×2 (11:33→11:49)
[2017-02-15] MEDS: Ascorbic Acid 500mg tab ORAL SCH ×2 (11:35→11:47)
[2017-02-15] MEDS: Albuterol ud Inhalation HHN PRN (11:41)
[2017-02-15] MEDS: Carvedilol 25mg Tab ORAL SCH ×2 (11:45→11:48)
[2017-02-15] MEDS: Thiamine 100mg tab ORAL SCH (11:51)
--- NOTE | 2017-02-15 13:52 | Diagnostic Imaging Report ---
Indication: SOB Technique: One view of the chest Comparison: 02/14/2017 Findings: Suspect increasing right pleural fluid. Consolidation at the right lung base persists. Diffuse pulmonary interstitial edema may be slightly worse. The heart is mildly enlarged. Old healed fracture deformities of the left ribs are noted Impression: Over one day, slightly increased right pleural effusion and generalized interstitial congestion. Right basilar infiltrate is stable
--- NOTE | 2017-02-15 18:58 | Nephrology Progress Note ---
Assessment/Plan Problem List: (1) Anemia in chronic kidney disease (2) CHF (congestive heart failure) (3) Cirrhosis (4) CKD (chronic kidney disease) stage 5, GFR less than 15 ml/min (5) Pneumonia Plan cxr worse, increase diuretics Subjective Constitutional: Reports: weakness HEENT: Reports: no symptoms Genitourinary: Reports: no symptoms Neurologic/Psychiatric: Reports: pre-existing deficit Objective Objective Last 24 Hour Vital Signs Date Time Temp Pulse Resp B/P Pulse Ox O2 Delivery O2 Flow Rate FiO2 02/15/17 16:05 98.0 75 24 155/84 95 Nasal Cannula 2.0 02/15/17 12:10 97.2 72 24 150/90 92 Room Air 02/15/17 11:52 60 24 92 Room Air 21 02/15/17 11:50 72 150/90 02/15/17 11:48 72 150/90 02/15/17 11:45 72 150/90 02/15/17 11:42 62 25 91 Room Air 21 02/15/17 09:57 72 20 99 02/15/17 09:24 76 20 Nasal Cannula 2.0 28 02/15/17 09:24 Nasal Cannula 2.0 28 02/15/17 09:24 96 Nasal Cannula 2.0 28 02/15/17 08:58 97.7 76 20 167/76 95 Nasal Cannula 2.0 02/15/17 08:23 98.2 74 19 149/83 100 Nasal Cannula 3.0 02/15/17 08:08 79 18 157/85 100 Nasal Cannula 3.0 02/15/17 08:03 74 18 165/87 100 Simple Mask 6.0 02/15/17 07:58 98.1 75 18 158/88 100 Simple Mask 6.0 02/15/17 04:00 98.2 81 18 167/81 95 Nasal Cannula 1.5 02/15/17 00:00 98.2 72 19 155/97 Nasal Cannula 1.5 02/14/17 21:05 70 127/63 02/14/17 20:00 96.4 70 20 127/63 Room Air 02/14/17 19:20 96 Room Air 21 02/14/17 19:20 Room Air 02/14/17 19:20 65 16 Room Air Intake and Output 02/14/17 02/15/17 19:00 07:00 Intake Total 240 ml 82.5 ml Output Total 300 ml 1150 ml Balance -60 ml -1067.5 ml Intake Oral 240 ml IV Total 82.5 ml Output Urine Total 300 ml 1150 ml # Bowel Movements 2 1 Laboratory Tests 02/15/17 05:40: Sodium Level 139, Potassium Level 4.9, Chloride Level 105, Carbon Dioxide Level 14L, Anion Gap 20H, Blood Urea Nitrogen 67H, Creatinine 2.8H, Estimat Glomerular Filtration Rate 22.6, Glucose Level 104, Calcium Level 8.3L Height (Feet): 6 Height (Inches): 0.00 Weight (Pounds): 180 General Appearance: no apparent distress, alert EENT: other - deaf Neck: normal alignment Cardiovascular: normal rate Respiratory/Chest: lungs clear Abdomen: non tender, soft Extremities: trace edema Neurologic: material clerk II-XII grossly normal JOHN CORONEL Feb 15, 2017 18:58
[2017-02-15] MEDS ORDERED: Vancomycin 750mg/D5W 275ml IVPB ONE ×2 (20:00)
[2017-02-15] MEDS: Zosyn 3.375gm q8h **Extended infusion IVPB SCH ×2 (23:23)
[2017-02-16] VITALS: BP 157/91
[2017-02-16 04:00] VITALS: BP 155/84
[2017-02-16] MEDS: Zosyn 3.375gm q8h **Extended infusion IVPB SCH ×6 (05:09→21:53)
[2017-02-16] MEDS: NovoLOG Insulin Flexpen SUBQ SCH ×4 (05:59→21:55)
[2017-02-16 07:06] LABS: INR 1.3 (0.9-1.1); PROTHROMBIN TIME 12.9 SEC (9.30-11.50)
[2017-02-16 07:07] LABS: BASOPHILS % (AUTO) 0.6 % (0.0-2.0); EOSINOPHILS % (AUTO) 1.2 % (0.0-3.0); LYMPHOCYTES % (AUTO) 17.1 % (20.0-45.0); MEAN CORPUSCULAR HGB CONC 32.3 G/DL (32.0-36.0); MEAN CORPUSCULAR VOLUME 96 FL (80-99); MEAN PLATELET VOLUME 5.6 FL (6.5-10.1); MONOCYTES % (AUTO) 8.1 % (1.0-10.0); NEUTROPHILS % (AUTO) 73.1 % (45.0-75.0); PLATELET COUNT 244 K/UL (150-450); RED CELL DISTRIBUTION WIDTH 14.2 % (11.6-14.8); WHITE BLOOD COUNT 10.8 K/UL (4.8-10.8)
[2017-02-16 07:33] LABS: CALCIUM 8.6 mg/dL (8.6-10.2); POTASSIUM 4.3 mEQ/L (3.4-4.9)
[2017-02-16 08:00] VITALS: BP 174/93
[2017-02-16 08:00] LABS: ALBUMIN/GLOBULIN RATIO 0.4 (1.0-2.7); CREATININE 2.9 mg/dL (0.7-1.2); GLOMERULAR FILTRATION RATE 21.7 mL/min (>60); TOTAL PROTEIN 7.8 g/dL (6.6-8.7)
[2017-02-16] MEDS: Thiamine 100mg tab ORAL SCH (08:14)
[2017-02-16] MEDS: Vitamin A&D Oint 2oz Tube TOPIC SCH ×2 (08:14→21:51)
[2017-02-16] MEDS: Carvedilol 25mg Tab ORAL SCH ×2 (08:14→21:52)
--- NOTE | 2017-02-16 08:22 | 48 Hour Post Anesthesia Eval ---
Post Anesthesia Evaluation Procedure: Debridement of R heel wound Date of Evaluation: Feb 16, 2017 Time of Evaluation: 09:35 Blood Pressure Systolic: 155 0: 84 Pulse Rate: 78 Respiratory Rate: 18 Temperature (Fahrenheit): 97.9 O2 Sat by Pulse Oximetry: 98 Airway: patent Nausea: No Vomiting: No Pain Intensity: 0 If pain is > 6 Comment: No pain complaints. Hydration Status: adequate Cardiopulmonary Status: Stable Mental Status/LOC: patient returned to baseline Follow-up Care/Observations: As per surgery Post-Anesthesia Complications: No anesthetic complication Follow-up care needed: N/A SELVIN GARCIA M.D. Feb 16, 2017 08:22
--- NOTE | 2017-02-16 09:08 | General Progress Note ---
Assessment/Plan Assessment/Plan IMPRESSION: 1. Leukocytosis. 2. Evidence of metabolic acidosis. 3. Concerns for a possibility of underlying sepsis syndrome. 4. Hyperglycemia. 5. Renal failure, possible acute on chronic. 6. Elevated alcohol phosphatase, unclear etiology. 7. Significant anemia, 8. Hepatitis C 9. possible cystitis 10. diabetes 11. acute on chronic encephalopathy 12. heel ulcer with possible osteo s/p debridement RECOMMENDATIONS: 1. wound care after dc 2. reviewed antibiotics. continue same after dc 3. keep negative; follow up today 4. Renal followup and recommendations. monitor closely 5. residential medications . 6. follow up imaging for clearing; ongoing diureses after dc needed 7. monitor findings and stabilize 8. dc to snf 9. outpatient follow up for renal impression, plan, and exam edited and reviewed in detail care discussed with RN Subjective Allergies: Coded Allergies: No Known Allergies (Unverified , 02/09/17) Subjective some confusion disheveled d/w renal will need HD in future Objective Last 24 Hour Vital Signs Date Time Temp Pulse Resp B/P Pulse Ox O2 Delivery O2 Flow Rate FiO2 02/16/17 08:22 78 18 98 02/16/17 08:14 78 155/84 02/16/17 08:14 78 155/84 02/16/17 08:00 96.2 79 20 174/93 100 Room Air 02/16/17 04:00 97.9 78 18 155/84 98 Room Air 02/16/17 00:00 97.5 75 17 157/91 Room Air 02/15/17 19:30 70 20 Nasal Cannula 2.0 28 02/15/17 19:30 Nasal Cannula 2.0 28 02/15/17 19:30 96 Nasal Cannula 2.0 28 02/15/17 16:05 98.0 75 24 155/84 95 Nasal Cannula 2.0 02/15/17 12:10 97.2 72 24 150/90 92 Room Air 02/15/17 11:52 60 24 92 Room Air 21 02/15/17 11:50 72 150/90 02/15/17 11:48 72 150/90 02/15/17 11:45 72 150/90 02/15/17 11:42 62 25 91 Room Air 21 02/15/17 09:57 72 20 99 02/15/17 09:24 76 20 Nasal Cannula 2.0 28 02/15/17 09:24 Nasal Cannula 2.0 28 02/15/17 09:24 96 Nasal Cannula 2.0 28 Intake and Output 02/15/17 02/16/17 19:00 07:00 Intake Total 927.5 ml Output Total 365 ml 1300 ml Balance 562.5 ml -1300 ml Intake Oral 600 ml IV Total 327.5 ml Output Urine Total 350 ml 1300 ml Estimated Blood Loss 15 ml # Voids 1 # Bowel Movements 1 Laboratory Tests 02/16/17 05:15: White Blood Count 10.8, Red Blood Count 2.80L, Hemoglobin 8.6L, Hematocrit 26.8L , Mean Corpuscular Volume 96, Mean Corpuscular Hemoglobin 31.0, Mean Corpuscular Hemoglobin Concent 32.3, Red Cell Distribution Width 14.2, Platelet Count 244, Mean Platelet Volume 5.6L, Neutrophils (%) (Auto) 73.1, Lymphocytes ( %) (Auto) 17.1L, Monocytes (%) (Auto) 8.1, Eosinophils (%) (Auto) 1.2, Basophils (%) (Auto) 0.6, Prothrombin Time 12.9H, Prothromb Time International Ratio 1.3H, Sodium Level 143, Potassium Level 4.3, Chloride Level 107, Carbon Dioxide Level 16L, Anion Gap 20H, Blood Urea Nitrogen 64H, Creatinine 2.9H, Estimat Glomerular Filtration Rate 21.7, Glucose Level 128H, Calcium Level 8.6, Total Bilirubin 0.2, Aspartate Amino Transf (AST/SGOT) 22, Alanine Aminotransferase (ALT/SGPT) 21, Alkaline Phosphatase 262H, Total Protein 7.8, Albumin 2.5L, Globulin 5.3, Albumin/Globulin Ratio 0.4L Height (Feet): 6 Height (Inches): 0.00 Weight (Pounds): 180 Objective GENERAL: The patient is a well-developed male, in no acute distress.. HEENT: Fairly negative. Extraocular movements are intact. Pupils are equal and reactive. NECK: Otherwise supple. LUNGS: no rhonchi; No wheezes. reduced breath sounds CARDIAC: Normal S1 and S2. Regular rhythm without murmurs, rubs, or gallops. ABDOMEN: Soft, nontender, and nondistended. no HSM EXTREMITIES: No cyanosis. No clubbing. some edema; heel dressed NEUROLOGIC: Alert, responsive, and appears to be nonfocal. reviewed and edited KELSEA DIAL Feb 16, 2017 09:08
--- NOTE | 2017-02-16 11:35 | Diagnostic Imaging Report ---
Indication: SOB Technique: One view of the chest Comparison: 02/15/2017 Findings: Less optimal inspiration currently. Decrease opacity the right lung base likely reflects decreased pleural fluid and possibly decreased or consolidation. Generalized mild interstitial congestion persists but allowing for technical differences may be slightly improved. The heart is borderline enlarged. Impression: Stable to slightly improved generalized interstitial congestion. Improved right basilar pleural and/or parenchymal disease, over one day
[2017-02-16 12:00] VITALS: BP 154/81
[2017-02-16] MEDS ORDERED: Heparin 2000 units/Ns 1000ml INJ ONE (14:45)
[2017-02-16] MEDS ORDERED: Lidocaine 1% Plain 30 ml INJ ONE (14:45)
--- NOTE | 2017-02-16 14:55 | Infectious Diseases Prog Note ---
Assessment/Plan Assessment/Plan A 1. pneumonia 2. renal failure, CKD 3. Hepatitis C 4. 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 continue Zosyn & Vancomycin 2. will f/u bone cultures 3. PICC line placement Subjective ROS Limited/Unobtainable: Yes HEENT: Reports: other - nasal bleeding Allergies: Coded Allergies: No Known Allergies (Unverified , 02/09/17) Objective Vital Signs Last 24 Hour Vital Signs Date Time Temp Pulse Resp B/P Pulse Ox O2 Delivery O2 Flow Rate FiO2 02/16/17 12:00 96.8 80 18 154/81 97 Room Air 02/16/17 08:22 78 18 98 02/16/17 08:14 78 155/84 02/16/17 08:14 78 155/84 02/16/17 08:00 96.2 79 20 174/93 100 Room Air 02/16/17 04:00 97.9 78 18 155/84 98 Room Air 02/16/17 00:00 97.5 75 17 157/91 Room Air 02/15/17 19:30 70 20 Nasal Cannula 2.0 28 02/15/17 19:30 Nasal Cannula 2.0 28 02/15/17 19:30 96 Nasal Cannula 2.0 28 02/15/17 16:05 98.0 75 24 155/84 95 Nasal Cannula 2.0 Height (Feet): 6 Height (Inches): 0.00 Weight (Pounds): 180 General Appearance: no acute distress HEENT: other - clotted blood in nostrils Respiratory/Chest: lungs clear Cardiovascular: normal peripheral pulses Abdomen: soft, non tender Extremities: no edema Skin: ulcers, other - right heel Neurologic/Psychiatric: alert, responsive Microbiology Date/Time Source Procedure Growth Status 02/13/17 19:16 Body Fluid Wound Gram Stain - Final Resulted 02/13/17 19:16 Aerobic Culture - Preliminary Pseudomonas Aeruginosa - Mdr Staphylococcus Aureus Resulted 02/13/17 19:16 Body Fluid Wound Anaerobic Culture Pending Resulted 02/14/17 15:50 Urine,Clean Catch Urine Culture - Preliminary Yeast Species Resulted 02/15/17 11:20 Foot Right Gram Stain - Final Resulted 02/15/17 11:20 Foot Right Aerobic Culture Pending Resulted 02/15/17 11:20 Foot Right Anaerobic Culture Pending Resulted 02/15/17 11:20 Foot Right Gram Stain - Final Resulted 02/15/17 11:20 Foot Right Aerobic Culture Pending Resulted 02/15/17 11:20 Foot Right Anaerobic Culture Pending Resulted Laboratory Tests Test 02/16/17 05:15 White Blood Count 10.8 K/UL (4.8-10.8) Red Blood Count 2.80 M/UL (4.70-6.10) L Hemoglobin 8.6 G/DL (14.2-18.0) L Hematocrit 26.8 % (42.0-52.0) L Mean Corpuscular Volume 96 FL (80-99) Mean Corpuscular Hemoglobin 31.0 PG (27.0-31.0) Mean Corpuscular Hemoglobin Concent 32.3 G/DL (32.0-36.0) Red Cell Distribution Width 14.2 % (11.6-14.8) Platelet Count 244 K/UL (150-450) Mean Platelet Volume 5.6 FL (6.5-10.1) L Neutrophils (%) (Auto) 73.1 % (45.0-75.0) Lymphocytes (%) (Auto) 17.1 % (20.0-45.0) L Monocytes (%) (Auto) 8.1 % (1.0-10.0) Eosinophils (%) (Auto) 1.2 % (0.0-3.0) Basophils (%) (Auto) 0.6 % (0.0-2.0) Prothrombin Time 12.9 SEC (9.30-11.50) H Prothromb Time International Ratio 1.3 (0.9-1.1) H Sodium Level 143 mEQ/L (135-145) Potassium Level 4.3 mEQ/L (3.4-4.9) Chloride Level 107 mEQ/L (98-107) Carbon Dioxide Level 16 mEQ/L (20-30) L Anion Gap 20 (5-15) H Blood Urea Nitrogen 64 mg/dL (7-23) H Creatinine 2.9 mg/dL (0.7-1.2) H Estimat Glomerular Filtration Rate 21.7 mL/min (>60) Glucose Level 128 mg/dL (74-106) H Calcium Level 8.6 mg/dL (8.6-10.2) Total Bilirubin 0.2 mg/dL (0.0-1.2) Aspartate Amino Transf (AST/SGOT) 22 U/L (5-40) Alanine Aminotransferase (ALT/SGPT) 21 U/L (3-41) Alkaline Phosphatase 262 U/L (40-129) H Total Protein 7.8 g/dL (6.6-8.7) Albumin 2.5 g/dL (3.5-5.2) L Globulin 5.3 g/dL Albumin/Globulin Ratio 0.4 (1.0-2.7) L Current Medications Medications (Trade) Dose Ordered Sig/Loulou Route PRN Reason Start Time Stop Time Status Last Admin Dose Admin Acetaminophen (Tylenol) 650 mg Q4H PRN ORAL Mild Pain/Temp > 100.5 02/13/17 13:30 03/15/17 13:29 Acetaminophen/ Hydrocodone Bitart ([place] 5/325) 1 tab Q4H PRN ORAL Moderate Pain (Pain Scale 4-6) 02/13/17 13:30 02/20/17 13:29 02/14/17 05:41 Al Hydroxide/Mg Hydroxide (Mylanta) 30 ml Q4H PRN ORAL Abdominal cramps 02/13/17 13:30 03/15/17 13:29 Albuterol Sulfate (Proventil) 2.5 mg Q4H PRN HHN Shortness of Breath 02/13/17 13:30 02/18/17 13:29 02/15/17 11:41 Amlodipine Besylate (Norvasc) 5 mg DAILY ORAL 02/14/17 09:00 03/16/17 08:59 02/16/17 08:14 Ascorbic Acid (Vitamin C) 500 mg DAILY ORAL 02/14/17 09:00 03/16/17 08:59 02/15/17 11:47 Carvedilol (Coreg) 25 mg EVERY 12 HOURS ORAL 02/13/17 21:00 03/15/17 20:59 02/16/17 08:14 Dextrose (Dextrose 50%) STAT PRN IV Hypoglycemia 02/13/17 13:30 03/15/17 13:29 Epoetin Wagner (Procrit (for non ESRD use)) 10,000 units MON-WED-TUE SUBQ 02/14/17 21:00 03/16/17 20:59 02/14/17 21:05 Folic Acid (Folate) 1 mg DAILY ORAL 02/14/17 09:00 03/16/17 08:59 02/15/17 11:47 Furosemide (Lasix) 80 mg Q8HR IV 02/15/17 22:00 03/17/17 21:59 02/16/17 13:42 Insulin Aspart (NovoLOG) BEFORE MEALS AND HS SUBQ 02/13/17 16:30 03/15/17 16:29 02/16/17 12:33 Multivitamins (Multivitamins) 1 tab DAILY ORAL 02/14/17 09:00 03/16/17 08:59 02/16/17 08:14 Pantoprazole (Protonix) 40 mg DAILY ORAL 02/14/17 09:00 03/16/17 08:59 02/16/17 08:14 Piperacillin Sod/ Tazobactam Sod/ Dextrose (Zosyn/D5W) 110 ml @ 27.5 mls/hr EVERY 8 HOURS IVPB 02/15/17 22:00 02/20/17 21:59 02/16/17 13:42 Thiamine HCl (Vitamin B1) 100 mg DAILY ORAL 02/14/17 09:00 03/16/17 08:59 02/16/17 08:14 Vancomycin HCl (Vanco rx to dose) 1 ea DAILY PRN MISC Per rx protocol 02/14/17 13:30 03/16/17 13:29 Vitamin A/Vitamin D (A & D Oint) 1 applic EVERY 12 HOURS TOPIC 02/13/17 21:00 03/15/17 20:59 02/16/17 08:14 Zinc Sulfate (Zinc Sulfate) 220 mg DAILY ORAL 02/14/17 09:00 03/16/17 08:59 02/15/17 11:49 Zolpidem Tartrate 5 mg 5 mg HSPRN PRN ORAL Insomnia 02/13/17 21:00 03/15/17 20:59 02/13/17 20:50 HEATHER BOCANEGRA Feb 16, 2017 14:55
[2017-02-16] MEDS ORDERED: Sodium Bicarbonate 8.4% 50ml Inj IV ONE (15:30)
[2017-02-16 16:00] VITALS: BP 134/75
--- NOTE | 2017-02-16 16:35 | Diagnostic Imaging Report ---
Indications: Needs long-term IV access Technique: Ultrasound confirms patent compressible right brachial vein. Total sterile technique, including sterile probe cover and sterile gel, hat, mask,, sterile gown, large sterile drape, and preparation with 2% chlorhexidine utilized. Local anesthesia with 1% lidocaine. Under real-time ultrasound guidance, puncture brachial vein using 21-gauge needle, documented and archived, passage 0.018 guidewire under direct fluoroscopy, which was used to determine appropriate catheter length, exchange for 5 [place]amese peel-away sheath. 5 [place]e Bard dual-lumen power PICC cut to 44 cm. It was inserted through the peel-away sheath. Peel-away sheath and guidewire removed. Catheter fixed to the skin. Both catheter ports aspirated and flushed. Patient tolerated procedure well, without immediate complication. Digital radiograph documents satisfactory catheter tip position, at the cavoatrial junction. Total fluoroscopy time 0.1 minutes. Total dose area product 4.1 dGycm2 Impression: Successful placement of right arm PICC under sonographic and fluoroscopic guidance, as described above.
--- NOTE | 2017-02-16 18:32 | Nephrology Progress Note ---
Assessment/Plan Problem List: (1) Anemia in chronic kidney disease (2) CHF (congestive heart failure) (3) Cirrhosis (4) CKD (chronic kidney disease) stage 5, GFR less than 15 ml/min (5) Pneumonia (6) Foot ulcer due to secondary DM Plan cxr worse, increase diuretics, d/w family consider av fistula soon for future dialysis Subjective Constitutional: Reports: weakness HEENT: Reports: other - poor hearing Genitourinary: Reports: no symptoms Neurologic/Psychiatric: Reports: no symptoms Objective Objective Last 24 Hour Vital Signs Date Time Temp Pulse Resp B/P Pulse Ox O2 Delivery O2 Flow Rate FiO2 02/16/17 12:00 96.8 80 18 154/81 97 Room Air 02/16/17 09:00 78 16 Room Air 2.0 28 02/16/17 09:00 Room Air 21 02/16/17 09:00 98 Room Air 21 02/16/17 08:22 78 18 98 02/16/17 08:14 78 155/84 02/16/17 08:14 78 155/84 02/16/17 08:00 96.2 79 20 174/93 100 Room Air 02/16/17 04:00 97.9 78 18 155/84 98 Room Air 02/16/17 00:00 97.5 75 17 157/91 Room Air 02/15/17 19:30 70 20 Nasal Cannula 2.0 28 02/15/17 19:30 Nasal Cannula 2.0 28 02/15/17 19:30 96 Nasal Cannula 2.0 28 Intake and Output 02/15/17 02/16/17 19:00 07:00 Intake Total 927.5 ml Output Total 365 ml 1300 ml Balance 562.5 ml -1300 ml Intake Oral 600 ml IV Total 327.5 ml Output Urine Total 350 ml 1300 ml Estimated Blood Loss 15 ml # Voids 1 # Bowel Movements 1 Laboratory Tests 02/16/17 05:15: White Blood Count 10.8, Red Blood Count 2.80L, Hemoglobin 8.6L, Hematocrit 26.8L , Mean Corpuscular Volume 96, Mean Corpuscular Hemoglobin 31.0, Mean Corpuscular Hemoglobin Concent 32.3, Red Cell Distribution Width 14.2, Platelet Count 244, Mean Platelet Volume 5.6L, Neutrophils (%) (Auto) 73.1, Lymphocytes ( %) (Auto) 17.1L, Monocytes (%) (Auto) 8.1, Eosinophils (%) (Auto) 1.2, Basophils (%) (Auto) 0.6, Prothrombin Time 12.9H, Prothromb Time International Ratio 1.3H, Sodium Level 143, Potassium Level 4.3, Chloride Level 107, Carbon Dioxide Level 16L, Anion Gap 20H, Blood Urea Nitrogen 64H, Creatinine 2.9H, Estimat Glomerular Filtration Rate 21.7, Glucose Level 128H, Calcium Level 8.6, Total Bilirubin 0.2, Aspartate Amino Transf (AST/SGOT) 22, Alanine Aminotransferase (ALT/SGPT) 21, Alkaline Phosphatase 262H, Total Protein 7.8, Albumin 2.5L, Globulin 5.3, Albumin/Globulin Ratio 0.4L Height (Feet): 6 Height (Inches): 0.00 Weight (Pounds): 180 General Appearance: other - poor hearing Neck: normal alignment Cardiovascular: normal rate, regular rhythm Respiratory/Chest: lungs clear Abdomen: non tender, soft Extremities: trace edema, other JOHN CORONEL Feb 16, 2017 18:32
[2017-02-16 20:00] VITALS: BP 144/72
[2017-02-16] MEDS: Zolpidem 5mg tab ORAL PRN (21:52)
[2017-02-16] MEDS: Norco 5mg/325mg tab ORAL PRN (21:52)
[2017-02-16] MEDS: Epogen (for non ESRD use) SUBQ SCH (21:53)
--- NOTE | 2017-02-16 23:45 | General Progress Note ---
Assessment/Plan Assessment/Plan Assessment - Anemia, likely due to renal failure - OB (-) stools - Agitation - Azotemia - Hepatitis C - heel decub Recommendations - push po - monitor labs --> H&H stable - check AFP --> normal - elevated HOB Subjective Allergies: Coded Allergies: No Known Allergies (Unverified , 02/09/17) Subjective above noted feels well no abd complaints Objective Last 24 Hour Vital Signs Date Time Temp Pulse Resp B/P Pulse Ox O2 Delivery O2 Flow Rate FiO2 02/16/17 22:51 97.9 02/16/17 21:52 73 144/72 02/16/17 20:00 97.9 73 18 144/72 96 Room Air 02/16/17 19:30 Room Air 21 02/16/17 19:30 96 Room Air 21 02/16/17 19:30 72 20 Room Air 21 02/16/17 16:00 97.4 68 19 134/75 94 Room Air 02/16/17 12:00 96.8 80 18 154/81 97 Room Air 02/16/17 09:00 78 16 Room Air 2.0 28 02/16/17 09:00 Room Air 21 02/16/17 09:00 98 Room Air 21 02/16/17 08:22 78 18 98 02/16/17 08:14 78 155/84 02/16/17 08:14 78 155/84 02/16/17 08:00 96.2 79 20 174/93 100 Room Air 02/16/17 04:00 97.9 78 18 155/84 98 Room Air 02/16/17 00:00 97.5 75 17 157/91 Room Air Intake and Output 02/15/17 02/16/17 19:00 07:00 Intake Total 927.5 ml Output Total 365 ml 1300 ml Balance 562.5 ml -1300 ml Intake Oral 600 ml IV Total 327.5 ml Output Urine Total 350 ml 1300 ml Estimated Blood Loss 15 ml # Voids 1 # Bowel Movements 1 Laboratory Tests 02/16/17 05:15: White Blood Count 10.8, Red Blood Count 2.80L, Hemoglobin 8.6L, Hematocrit 26.8L , Mean Corpuscular Volume 96, Mean Corpuscular Hemoglobin 31.0, Mean Corpuscular Hemoglobin Concent 32.3, Red Cell Distribution Width 14.2, Platelet Count 244, Mean Platelet Volume 5.6L, Neutrophils (%) (Auto) 73.1, Lymphocytes ( %) (Auto) 17.1L, Monocytes (%) (Auto) 8.1, Eosinophils (%) (Auto) 1.2, Basophils (%) (Auto) 0.6, Prothrombin Time 12.9H, Prothromb Time International Ratio 1.3H, Sodium Level 143, Potassium Level 4.3, Chloride Level 107, Carbon Dioxide Level 16L, Anion Gap 20H, Blood Urea Nitrogen 64H, Creatinine 2.9H, Estimat Glomerular Filtration Rate 21.7, Glucose Level 128H, Calcium Level 8.6, Total Bilirubin 0.2, Aspartate Amino Transf (AST/SGOT) 22, Alanine Aminotransferase (ALT/SGPT) 21, Alkaline Phosphatase 262H, Total Protein 7.8, Albumin 2.5L, Globulin 5.3, Albumin/Globulin Ratio 0.4L Height (Feet): 6 Height (Inches): 0.00 Weight (Pounds): 180 Objective WDWN NCAT supple CTA RRR Soft NT ND no edema, dressing BESS HOGAN Feb 16, 2017 23:45
[2017-02-17 03:55] VITALS: BP 128/74
[2017-02-17] MEDS: Zosyn 3.375gm q8h **Extended infusion IVPB SCH ×4 (05:35→13:48)
[2017-02-17] MEDS: Norco 5mg/325mg tab ORAL PRN ×2 (05:35→20:45)
[2017-02-17] MEDS: NovoLOG Insulin Flexpen SUBQ SCH ×4 (05:41→20:49)
[2017-02-17 07:50] LABS: CALCIUM 8.3 mg/dL (8.6-10.2); GLOMERULAR FILTRATION RATE 20.9 mL/min (>60); POTASSIUM 3.8 mEQ/L (3.4-4.9)
[2017-02-17 08:00] VITALS: BP 144/65
[2017-02-17] MEDS: Thiamine 100mg tab ORAL SCH (08:55)
[2017-02-17] MEDS: Ascorbic Acid 500mg tab ORAL SCH (08:55)
[2017-02-17] MEDS: Carvedilol 25mg Tab ORAL SCH ×2 (08:55→20:44)
[2017-02-17] MEDS: Vitamin A&D Oint 2oz Tube TOPIC SCH ×2 (08:55→20:45)
[2017-02-17] MEDS: Zinc Sulfate 220mg cap ORAL SCH (08:55)
[2017-02-17] MEDS ORDERED: NS 275ml ONE (09:53)
--- NOTE | 2017-02-17 10:48 | General Progress Note ---
Assessment/Plan Assessment/Plan IMPRESSION: 1. Leukocytosis. 2. Evidence of metabolic acidosis. 3. Concerns for a possibility of underlying sepsis syndrome. 4. Hyperglycemia. 5. Renal failure, possible acute on chronic. 6. Elevated alcohol phosphatase, unclear etiology. 7. Significant anemia, 8. Hepatitis C 9. possible cystitis 10. diabetes 11. acute on chronic encephalopathy 12. heel ulcer with possible osteo s/p debridement RECOMMENDATIONS: 1. wound care and may need amputation 2. reviewed antibiotics. concern with impact on renal function 3. keep negative; follow up today 4. Renal followup and would likely need HD 5. half-way medications . 6. follow up imaging for clearing; ongoing diureses after dc needed 7. monitor findings and stabilize 8. dc to snf when safe 9. update family impression, plan, and exam edited and reviewed in detail care discussed with RN Subjective Allergies: Coded Allergies: No Known Allergies (Unverified , 02/09/17) Subjective d/w ID d/w renal care noted Objective Last 24 Hour Vital Signs Date Time Temp Pulse Resp B/P Pulse Ox O2 Delivery O2 Flow Rate FiO2 02/17/17 08:56 64 144/65 02/17/17 08:55 64 144/65 02/17/17 08:00 98.2 64 19 144/65 96 Room Air 02/17/17 07:00 75 20 Room Air 02/17/17 07:00 Room Air 21 02/17/17 07:00 93 Room Air 21 02/17/17 06:34 97.6 02/17/17 03:55 97.6 67 18 128/74 95 Room Air 02/16/17 21:52 73 144/72 02/16/17 20:00 97.9 73 18 144/72 96 Room Air 02/16/17 19:30 Room Air 21 02/16/17 19:30 96 Room Air 21 02/16/17 19:30 72 20 Room Air 21 02/16/17 16:00 97.4 68 19 134/75 94 Room Air 02/16/17 12:00 96.8 80 18 154/81 97 Room Air Intake and Output 02/16/17 02/17/17 19:00 07:00 Intake Total 720 ml 865.0 ml Output Total 1000 ml Balance 720 ml -135.0 ml Intake Oral 720 ml 755 ml IV Total 110.0 ml Output Urine Total 1000 ml # Voids 2 # Bowel Movements 1 3 Laboratory Tests 02/17/17 05:00: Sodium Level 141, Potassium Level 3.8, Chloride Level 104, Carbon Dioxide Level 18L, Anion Gap 19H, Blood Urea Nitrogen 63H, Creatinine 3.0H, Estimat Glomerular Filtration Rate 20.9, Glucose Level 245#H, Calcium Level 8.3L Height (Feet): 6 Height (Inches): 0.00 Weight (Pounds): 180 Objective GENERAL: The patient is a well-developed male, in no acute distress.. HEENT: Fairly negative. Extraocular movements are intact. Pupils are equal and reactive. NECK: Otherwise supple. LUNGS: no rhonchi; No wheezes. reduced breath sounds and still with congestion CARDIAC: Normal S1 and S2. Regular rhythm without murmurs, rubs, or gallops. ABDOMEN: Soft, nontender, and nondistended. no HSM EXTREMITIES: No cyanosis. No clubbing. persistent edema; heel noted NEUROLOGIC: Alert, responsive, and appears to be nonfocal. reviewed and edited KELSEA DIAL Feb 17, 2017 10:48
[2017-02-17 12:00] VITALS: BP 152/84
--- NOTE | 2017-02-17 14:36 | Infectious Diseases Prog Note ---
Assessment/Plan Assessment/Plan A 1. pneumonia 2. renal failure, CKD 3. Hepatitis C 4. 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 Continue Vancomycin 2. will f/u bone cultures 3. change Zosyn to Cefepime Subjective ROS Limited/Unobtainable: Yes HEENT: Reports: other Neurologic: Reports: other - decreased hearing Musculoskeletal: Reports: other - in right foot, pain Allergies: Coded Allergies: No Known Allergies (Unverified , 02/09/17) Objective Vital Signs Last 24 Hour Vital Signs Date Time Temp Pulse Resp B/P Pulse Ox O2 Delivery O2 Flow Rate FiO2 02/17/17 12:00 98.4 67 18 152/84 97 Room Air 02/17/17 08:56 64 144/65 02/17/17 08:55 64 144/65 02/17/17 08:00 98.2 64 19 144/65 96 Room Air 02/17/17 07:00 75 20 Room Air 21 02/17/17 07:00 Room Air 21 02/17/17 07:00 93 Room Air 21 02/17/17 06:34 97.6 02/17/17 03:55 97.6 67 18 128/74 95 Room Air 02/16/17 21:52 73 144/72 02/16/17 20:00 97.9 73 18 144/72 96 Room Air 02/16/17 19:30 Room Air 21 02/16/17 19:30 96 Room Air 21 02/16/17 19:30 72 20 Room Air 21 02/16/17 16:00 97.4 68 19 134/75 94 Room Air Height (Feet): 6 Height (Inches): 0.00 Weight (Pounds): 180 General Appearance: no acute distress HEENT: mucous membranes moist Respiratory/Chest: lungs clear Cardiovascular: normal rate Abdomen: soft, non tender Extremities: no edema, other - R arm PICC line Skin: ulcers, other - in right heel Microbiology Date/Time Source Procedure Growth Status 02/14/17 15:50 Urine,Clean Catch Urine Culture - Final Bina Albicans Complete 02/15/17 11:20 Foot Right Gram Stain - Final Resulted 02/15/17 11:20 Foot Right Aerobic Culture Pending Resulted 02/15/17 11:20 Foot Right Anaerobic Culture - Preliminary Resulted 02/15/17 11:20 Foot Right Gram Stain - Final Resulted 02/15/17 11:20 Aerobic Culture - Preliminary Gram Negative Bacillus 1 Staphylococcus Aureus Resulted 02/15/17 11:20 Foot Right Anaerobic Culture Pending Resulted Laboratory Tests Test 02/17/17 05:00 Sodium Level 141 mEQ/L (135-145) Potassium Level 3.8 mEQ/L (3.4-4.9) Chloride Level 104 mEQ/L (98-107) Carbon Dioxide Level 18 mEQ/L (20-30) L Anion Gap 19 (5-15) H Blood Urea Nitrogen 63 mg/dL (7-23) H Creatinine 3.0 mg/dL (0.7-1.2) H Estimat Glomerular Filtration Rate 20.9 mL/min (>60) Glucose Level 245 mg/dL (74-106) #H Calcium Level 8.3 mg/dL (8.6-10.2) L Current Medications Medications (Trade) Dose Ordered Sig/Loulou Route PRN Reason Start Time Stop Time Status Last Admin Dose Admin Acetaminophen (Tylenol) 650 mg Q4H PRN ORAL Mild Pain/Temp > 100.5 02/13/17 13:30 03/15/17 13:29 Acetaminophen/ Hydrocodone Bitart ([place] 5/325) 1 tab Q4H PRN ORAL Moderate Pain (Pain Scale 4-6) 02/13/17 13:30 02/20/17 13:29 02/17/17 05:35 Al Hydroxide/Mg Hydroxide (Mylanta) 30 ml Q4H PRN ORAL Abdominal cramps 02/13/17 13:30 03/15/17 13:29 Albuterol Sulfate (Proventil) 2.5 mg Q4H PRN HHN Shortness of Breath 02/13/17 13:30 02/18/17 13:29 02/15/17 11:41 Amlodipine Besylate (Norvasc) 5 mg DAILY ORAL 02/14/17 09:00 03/16/17 08:59 02/17/17 08:56 Ascorbic Acid (Vitamin C) 500 mg DAILY ORAL 02/14/17 09:00 03/16/17 08:59 02/17/17 08:55 Carvedilol (Coreg) 25 mg EVERY 12 HOURS ORAL 02/13/17 21:00 03/15/17 20:59 02/17/17 08:55 Dextrose (Dextrose 50%) STAT PRN IV Hypoglycemia 02/13/17 13:30 03/15/17 13:29 Epoetin Wagner (Procrit (for non ESRD use)) 10,000 units TUE-TUE-TUE SUBQ 02/14/17 21:00 03/16/17 20:59 02/16/17 21:53 Folic Acid (Folate) 1 mg DAILY ORAL 02/14/17 09:00 03/16/17 08:59 02/17/17 08:55 Furosemide (Lasix) 80 mg Q8HR IV 02/15/17 22:00 03/17/17 21:59 02/17/17 13:48 Insulin Aspart (NovoLOG) BEFORE MEALS AND HS SUBQ 02/13/17 16:30 03/15/17 16:29 02/17/17 11:30 Multivitamins (Multivitamins) 1 tab DAILY ORAL 02/14/17 09:00 03/16/17 08:59 02/17/17 08:55 Pantoprazole (Protonix) 40 mg DAILY ORAL 02/14/17 09:00 03/16/17 08:59 02/17/17 08:55 Piperacillin Sod/ Tazobactam Sod/ Dextrose (Zosyn/D5W) 110 ml @ 27.5 mls/hr EVERY 8 HOURS IVPB 02/15/17 22:00 02/20/17 21:59 02/17/17 13:48 Thiamine HCl (Vitamin B1) 100 mg DAILY ORAL 02/14/17 09:00 03/16/17 08:59 02/17/17 08:55 Vancomycin HCl (Vanco rx to dose) 1 ea DAILY PRN MISC Per rx protocol 02/14/17 13:30 03/16/17 13:29 Vitamin A/Vitamin D (A & D Oint) 1 applic EVERY 12 HOURS TOPIC 02/13/17 21:00 03/15/17 20:59 02/17/17 08:55 Zinc Sulfate (Zinc Sulfate) 220 mg DAILY ORAL 02/14/17 09:00 03/16/17 08:59 02/17/17 08:55 Zolpidem Tartrate 5 mg 5 mg HSPRN PRN ORAL Insomnia 02/13/17 21:00 03/15/17 20:59 02/16/17 21:52 HEATHER BOCANEGRA Feb 17, 2017 14:36
[2017-02-17 16:00] VITALS: BP 148/79
--- NOTE | 2017-02-17 16:34 | Nephrology Progress Note ---
Assessment/Plan Problem List: (1) Anemia in chronic kidney disease (2) CHF (congestive heart failure) (3) Cirrhosis (4) CKD (chronic kidney disease) stage 5, GFR less than 15 ml/min (5) Pneumonia (6) Foot ulcer due to secondary DM Plan chf better, stop diuretics, d/w family consider av fistula soon for future dialysis Subjective HEENT: Reports: no symptoms Genitourinary: Reports: no symptoms Neurologic/Psychiatric: Reports: pre-existing deficit Objective Objective Last 24 Hour Vital Signs Date Time Temp Pulse Resp B/P Pulse Ox O2 Delivery O2 Flow Rate FiO2 02/17/17 12:00 98.4 67 18 152/84 97 Room Air 02/17/17 08:56 64 144/65 02/17/17 08:55 64 144/65 02/17/17 08:00 98.2 64 19 144/65 96 Room Air 02/17/17 07:00 75 20 Room Air 21 02/17/17 07:00 Room Air 21 02/17/17 07:00 93 Room Air 21 02/17/17 06:34 97.6 02/17/17 03:55 97.6 67 18 128/74 95 Room Air 02/16/17 21:52 73 144/72 02/16/17 20:00 97.9 73 18 144/72 96 Room Air 02/16/17 19:30 Room Air 21 02/16/17 19:30 96 Room Air 21 02/16/17 19:30 72 20 Room Air 21 Intake and Output 02/16/17 02/17/17 19:00 07:00 Intake Total 720 ml 865.0 ml Output Total 1000 ml Balance 720 ml -135.0 ml Intake Oral 720 ml 755 ml IV Total 110.0 ml Output Urine Total 1000 ml # Voids 2 # Bowel Movements 1 3 Laboratory Tests 02/17/17 05:00: Sodium Level 141, Potassium Level 3.8, Chloride Level 104, Carbon Dioxide Level 18L, Anion Gap 19H, Blood Urea Nitrogen 63H, Creatinine 3.0H, Estimat Glomerular Filtration Rate 20.9, Glucose Level 245#H, Calcium Level 8.3L Height (Feet): 6 Height (Inches): 0.00 Weight (Pounds): 180 General Appearance: no apparent distress, alert EENT: other - poor hearing Cardiovascular: normal rate, regular rhythm Respiratory/Chest: lungs clear Abdomen: non tender Extremities: other - no edema, dressing r JOHN Sr Feb 17, 2017 16:34
[2017-02-17] MEDS: Cefepime HCl 1 GM in D5W 55 ML IVPB SCH (16:57)
[2017-02-17 20:00] VITALS: BP 148/74
[2017-02-17] MEDS: Zolpidem 5mg tab ORAL PRN (20:45)
--- NOTE | 2017-02-17 22:46 | General Progress Note ---
Assessment/Plan Assessment/Plan Assessment - Anemia, likely due to renal failure - OB (-) stools - Agitation - Azotemia - Hepatitis C - heel decub Recommendations - push po - monitor labs --> H&H stable - check AFP --> normal - elevated HOB Subjective Allergies: Coded Allergies: No Known Allergies (Unverified , 02/09/17) Subjective above noted feels well no abd complaints Objective Last 24 Hour Vital Signs Date Time Temp Pulse Resp B/P Pulse Ox O2 Delivery O2 Flow Rate FiO2 02/17/17 21:44 98.2 02/17/17 20:44 75 145/80 02/17/17 20:36 70 20 Nasal Cannula 2.0 28 02/17/17 20:00 98.2 76 18 148/74 97 Room Air 02/17/17 19:45 96 Room Air 21 02/17/17 19:45 Room Air 21 02/17/17 16:00 98.2 72 18 148/79 96 Room Air 02/17/17 12:00 98.4 67 18 152/84 97 Room Air 02/17/17 08:56 64 144/65 02/17/17 08:55 64 144/65 02/17/17 08:00 98.2 64 19 144/65 96 Room Air 02/17/17 07:00 75 20 Room Air 21 02/17/17 07:00 Room Air 21 02/17/17 07:00 93 Room Air 21 02/17/17 03:55 97.6 67 18 128/74 95 Room Air Intake and Output 02/16/17 02/17/17 19:00 07:00 Intake Total 720 ml 865.0 ml Output Total 1000 ml Balance 720 ml -135.0 ml Intake Oral 720 ml 755 ml IV Total 110.0 ml Output Urine Total 1000 ml # Voids 2 # Bowel Movements 1 3 Laboratory Tests 02/17/17 05:00: Sodium Level 141, Potassium Level 3.8, Chloride Level 104, Carbon Dioxide Level 18L, Anion Gap 19H, Blood Urea Nitrogen 63H, Creatinine 3.0H, Estimat Glomerular Filtration Rate 20.9, Glucose Level 245#H, Calcium Level 8.3L Height (Feet): 6 Height (Inches): 0.00 Weight (Pounds): 180 Objective WDWN NCAT supple CTA RRR Soft NT ND no edema, dressing KHORRAMI,PAYMAN Feb 17, 2017 22:46
--- NOTE | 2017-02-17 23:11 | Wound Care Consultation ---
Wound Assessment Wound Assessment : Wound Present on Admission: Yes New Wound: No Status Change of Wound: No Wound Location Body Site Modif: right Wound Location Body Site: heel Wound Type: pressure ulcer Mayela Test: Does not Mayela Pressure Ulcer Stage: IV/unstageable - suspected Wound Thickness: Full Thickness Wound Length: 6.5 Wound Width: 6.5 Wound Depth: 2.8 Percent of Wound Bed Yellow/Wh: 100 Wound Drainage Description: Serosanguineous Wound Drainage Amount: Moderate Wound Drainage Odor: None/Absent Tissue Surrounding Wound: Macerated Wound General Appearance: Draining, Necrotic, Bone Palpable Wound Comment #1 Right heel pressure ulcer stage IV/Unstageable. Debridement done at bed side by MD Jag Price. first drg change done today after debridement. Noted moderate amount of serosanguineous drainage. No odor noted at this time. Will cont to monitor. #2 Left 1st toe callus. Still intact #3 Sacral suspected deep tissue injury. RESOLVED Recommendation -Local wound care as ordered by MD -Keep clean and dry -Turn and reposition -Optimize nutrition -Offload both heels -Heel protector on both heels -Monitor s/s of infection on Right heel s/p debridement and f/u with MARINA CHAIDEZ RN Feb 17, 2017 23:11
--- NOTE | 2017-02-17 23:18 | Diagnostic Imaging Report ---
APPROVED REPORT CPT Code: 91837 Symptoms Non-healing Ulcer : Right Risk Factors Cardiac Disease Diabetes RIGHT LEG: Common femoral artery waveform analysis is within normal limits at rest. Color flow duplex sonography reveals calcification throughout the superficial femoral and popliteal arteries. There is no evidence of stenosis or occlusion within these segments. The tibioperoneal trunk is also patent. The posterior tibial, anterior tibial and dorsalis pedis arteries are also mildly calcified. Doppler tibial artery waveform analysis is compatible with minimal ischemia. LEFT LEG: Common femoral artery waveform analysis is within normal limits at rest. Color flow duplex sonography reveals calcification throughout the superficial femoral and popliteal arteries. There is no evidence of stenosis or occlusion within these segments. The tibioperoneal trunk is also patent. The posterior tibial, anterior tibial and dorsalis pedis arteries are also mildly calcified. Doppler tibial artery waveform analysis is within normal limits at rest. Doppler tibial artery waveform analysis is compatible with mild ischemia at rest.
[2017-02-18] VITALS: BP 156/82
[2017-02-18 04:00] VITALS: BP 145/76
[2017-02-18 05:01] LABS: BASOPHILS % (AUTO) 0.7 % (0.0-2.0); EOSINOPHILS % (AUTO) 2.1 % (0.0-3.0); LYMPHOCYTES % (AUTO) 24.7 % (20.0-45.0); MEAN CORPUSCULAR HEMOGLOBIN 30.9 PG (27.0-31.0); MEAN CORPUSCULAR VOLUME 94 FL (80-99); MEAN PLATELET VOLUME 6.1 FL (6.5-10.1); MONOCYTES % (AUTO) 9.6 % (1.0-10.0); PLATELET COUNT 255 K/UL (150-450); RED BLOOD COUNT 2.71 M/UL (4.70-6.10); RED CELL DISTRIBUTION WIDTH 13.8 % (11.6-14.8); WHITE BLOOD COUNT 11.6 K/UL (4.8-10.8)
[2017-02-18 05:10] LABS: ANION GAP 13 (5-15); CALCIUM 7.9 mg/dL (8.6-10.2); CARBON DIOXIDE 21 mEQ/L (20-30); CHLORIDE 103 mEQ/L (98-107); CREATININE 2.8 mg/dL (0.7-1.2); GLOMERULAR FILTRATION RATE 22.6 mL/min (>60); HEMOLYSIS 0; POTASSIUM 3.7 mEQ/L (3.4-4.9); SODIUM 137 mEQ/L (135-145)
[2017-02-18] MEDS: Norco 5mg/325mg tab ORAL PRN (05:19)
[2017-02-18] MEDS: NovoLOG Insulin Flexpen SUBQ SCH ×3 (05:24→16:51)
[2017-02-18 08:00] VITALS: BP 145/71
[2017-02-18] MEDS ORDERED: Vancomycin 750mg/D5W 275ml IVPB ONE ×2 (08:00)
--- NOTE | 2017-02-18 08:14 | Nephrology Progress Note ---
Assessment/Plan Problem List: (1) Anemia in chronic kidney disease (2) CHF (congestive heart failure) (3) Cirrhosis (4) CKD (chronic kidney disease) stage 5, GFR less than 15 ml/min (5) Pneumonia (6) Foot ulcer due to secondary DM Plan chf better, stop diuretics, d/w family consider av fistula soon for future dialysis, seen by dr jose campbell who recommends bka and av fistula Subjective Constitutional: Reports: weakness HEENT: Reports: no symptoms Genitourinary: Reports: no symptoms Neurologic/Psychiatric: Reports: pre-existing deficit Objective Objective Last 24 Hour Vital Signs Date Time Temp Pulse Resp B/P Pulse Ox O2 Delivery O2 Flow Rate FiO2 02/18/17 06:18 98.2 02/18/17 04:00 98.2 76 18 145/76 96 Room Air 02/18/17 00:00 97.5 70 18 156/82 96 Room Air 02/17/17 20:44 75 145/80 02/17/17 20:36 70 20 Nasal Cannula 2.0 28 02/17/17 20:00 98.2 76 18 148/74 97 Room Air 02/17/17 19:45 96 Room Air 21 02/17/17 19:45 Room Air 21 02/17/17 16:00 98.2 72 18 148/79 96 Room Air 02/17/17 12:00 98.4 67 18 152/84 97 Room Air 02/17/17 08:56 64 144/65 02/17/17 08:55 64 144/65 Intake and Output 02/17/17 02/18/17 19:00 07:00 Intake Total 590 ml 500 ml Output Total 900 ml 2000 ml Balance -310 ml -1500 ml Intake Oral 480 ml 500 ml IV Total 110 ml Output Urine Total 900 ml 2000 ml # Bowel Movements 2 1 Laboratory Tests 02/18/17 04:20: White Blood Count 11.6H, Red Blood Count 2.71L, Hemoglobin 8.4L, Hematocrit 25.3L, Mean Corpuscular Volume 94, Mean Corpuscular Hemoglobin 30.9, Mean Corpuscular Hemoglobin Concent 33.0, Red Cell Distribution Width 13.8, Platelet Count 255, Mean Platelet Volume 6.1L, Neutrophils (%) (Auto) 63.0, Lymphocytes ( %) (Auto) 24.7, Monocytes (%) (Auto) 9.6, Eosinophils (%) (Auto) 2.1, Basophils (%) (Auto) 0.7, Sodium Level 137, Potassium Level 3.7, Chloride Level 103, Carbon Dioxide Level 21, Anion Gap 13, Blood Urea Nitrogen 56H, Creatinine 2.8H , Estimat Glomerular Filtration Rate 22.6, Glucose Level 135#H, Calcium Level 7.9L, Pro-B-Type Natriuretic Peptide [Pending], Random Vancomycin Level 19.0 Height (Feet): 6 Height (Inches): 0.00 Weight (Pounds): 180 General Appearance: no apparent distress EENT: normal ENT inspection, other - deaf Neck: normal alignment Cardiovascular: regular rhythm Respiratory/Chest: lungs clear Abdomen: non tender Extremities: other - no edema,dressing r foot Neurologic: alert JOHN CORONEL Feb 18, 2017 08:14
[2017-02-18] MEDS: Carvedilol 25mg Tab ORAL SCH (09:01)
[2017-02-18] MEDS: Zinc Sulfate 220mg cap ORAL SCH (09:01)
[2017-02-18] MEDS: Thiamine 100mg tab ORAL SCH (09:01)
[2017-02-18] MEDS: Ascorbic Acid 500mg tab ORAL SCH (09:02)
[2017-02-18] MEDS: Vitamin A&D Oint 2oz Tube TOPIC SCH (09:04)
[2017-02-18 09:10] LABS: HEMOLYSIS 1; IRON 27 ug/dL (59-158); TOTAL IRON BINDING CAPACITY 155 ug/dL (250-400)
[2017-02-18 09:14] LABS: FERRITIN 197 ng/mL (10-230)
--- NOTE | 2017-02-18 09:24 | General Progress Note ---
Assessment/Plan Assessment/Plan IMPRESSION: 1. Leukocytosis. 2. Evidence of metabolic acidosis. 3. Concerns for a possibility of underlying sepsis syndrome. 4. Hyperglycemia. 5. Renal failure, possible acute on chronic. 6. Elevated alcohol phosphatase, unclear etiology. 7. Significant anemia, 8. Hepatitis C 9. possible cystitis 10. diabetes 11. acute on chronic encephalopathy 12. heel ulcer with possible osteo s/p debridement RECOMMENDATIONS: 1. wound care and may need amputation 2. reviewed antibiotics. concern with impact on renal function 3. keep negative; follow up as needs ongoing diuresis 4. Renal followup and would likely need HD; thus far stable 5. penitentiary medications noted 6. follow up imaging for clearing; ongoing diureses after dc needed 7. monitor findings and stabilize 8. dc to snf when safe and cleared by ID 9. update family impression, plan, and exam edited and reviewed in detail care discussed with RN Subjective Allergies: Coded Allergies: No Known Allergies (Unverified , 02/09/17) Subjective d/w ID d/w renal care noted discussing dc plan Objective Last 24 Hour Vital Signs Date Time Temp Pulse Resp B/P Pulse Ox O2 Delivery O2 Flow Rate FiO2 02/18/17 09:02 76 145/76 02/18/17 09:01 76 145/76 02/18/17 08:00 98.2 70 19 145/71 95 Room Air 02/18/17 06:18 98.2 02/18/17 04:00 98.2 76 18 145/76 96 Room Air 02/18/17 00:00 97.5 70 18 156/82 96 Room Air 02/17/17 20:44 75 145/80 02/17/17 20:36 70 20 Nasal Cannula 2.0 28 02/17/17 20:00 98.2 76 18 148/74 97 Room Air 02/17/17 19:45 96 Room Air 21 02/17/17 19:45 Room Air 21 02/17/17 16:00 98.2 72 18 148/79 96 Room Air 02/17/17 12:00 98.4 67 18 152/84 97 Room Air Intake and Output 02/17/17 02/18/17 19:00 07:00 Intake Total 590 ml 500 ml Output Total 900 ml 2000 ml Balance -310 ml -1500 ml Intake Oral 480 ml 500 ml IV Total 110 ml Output Urine Total 900 ml 2000 ml # Bowel Movements 2 1 Laboratory Tests 02/18/17 04:20: White Blood Count 11.6H, Red Blood Count 2.71L, Hemoglobin 8.4L, Hematocrit 25.3L, Mean Corpuscular Volume 94, Mean Corpuscular Hemoglobin 30.9, Mean Corpuscular Hemoglobin Concent 33.0, Red Cell Distribution Width 13.8, Platelet Count 255, Mean Platelet Volume 6.1L, Neutrophils (%) (Auto) 63.0, Lymphocytes ( %) (Auto) 24.7, Monocytes (%) (Auto) 9.6, Eosinophils (%) (Auto) 2.1, Basophils (%) (Auto) 0.7, Sodium Level 137, Potassium Level 3.7, Chloride Level 103, Carbon Dioxide Level 21, Anion Gap 13, Blood Urea Nitrogen 56H, Creatinine 2.8H , Estimat Glomerular Filtration Rate 22.6, Glucose Level 135#H, Calcium Level 7.9L, Iron Level 27L, Total Iron Binding Capacity 155L, Percent Iron Saturation 17, Unsaturated Iron Binding 128, Ferritin 197, Pro-B-Type Natriuretic Peptide [ Pending], Random Vancomycin Level 19.0 Height (Feet): 6 Height (Inches): 0.00 Weight (Pounds): 180 Objective GENERAL: The patient is a well-developed male, in no acute distress.. HEENT: Fairly negative. Extraocular movements are intact. Pupils are equal and reactive. NECK: Otherwise supple. LUNGS: no rhonchi; No wheezes. reduced breath sounds and still with congestion CARDIAC: Normal S1 and S2. Regular rhythm without murmurs, rubs, or gallops. ABDOMEN: Soft, nontender, and nondistended. no HSM EXTREMITIES: No cyanosis. No clubbing. persistent edema; heel noted NEUROLOGIC: Alert, responsive, and appears to be nonfocal. reviewed and edited KELSEA DIAL Feb 18, 2017 09:24
--- NOTE | 2017-02-18 09:48 | Diagnostic Imaging Report ---
APPROVED REPORT CPT Code: 15637 Present Symptoms Comments: Potential graft for dialysis access evaluation. Vein Measurements(cm) Cephalic Basilic Right LeftRight Left 0.45Upper Arm0.540.50Mid Upper Arm0.35 0.34Mid Upper Arm0.500.46Antecubital Fossa0.35 0.34Upper Forearm0.24 0.65Antecubital Fossa0.30Wrist 0.40Upper Forearm0.32 Wrist0.24 The right and left cephalic and basilic veins were imaged and measured to evaluate as a potential graft for dialysis access. Measurements are as follows: BILATERAL UPPER EXTREMITY: Imaging reveals patency of the internal jugular, subclavian, axillary and brachial veins. The cephalic and basilic veins are also patent. Doppler indicates normal spontaneous flow within these venous segments, bilaterally.
--- NOTE | 2017-02-18 11:20 | Infectious Diseases Prog Note ---
"Assessment/Plan Assessment/Plan antibiotics : cefepime, iv vancomycin A 1. 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 renal failure improving 3. cirrhosis 4. DM 5. hepatitis C P 1. continue cefepime iv 40 more days with limited options as amikacin has a high risk of causing renal failure and dialysis 2. d/c iv vancomycin 3. start and continue po linezolid 42 days 4. cbc, bmp, lft q weekly 5. will follow up cultures Subjective ROS Limited/Unobtainable: Yes Allergies: Coded Allergies: No Known Allergies (Unverified , 02/09/17) Objective Vital Signs Last 24 Hour Vital Signs Date Time Temp Pulse Resp B/P Pulse Ox O2 Delivery O2 Flow Rate FiO2 02/18/17 09:02 76 145/76 02/18/17 09:01 76 145/76 02/18/17 08:00 98.2 70 19 145/71 95 Room Air 02/18/17 06:18 98.2 02/18/17 04:00 98.2 76 18 145/76 96 Room Air 02/18/17 00:00 97.5 70 18 156/82 96 Room Air 02/17/17 20:44 75 145/80 02/17/17 20:36 70 20 Nasal Cannula 2.0 28 02/17/17 20:00 98.2 76 18 148/74 97 Room Air 02/17/17 19:45 96 Room Air 21 02/17/17 19:45 Room Air 21 02/17/17 16:00 98.2 72 18 148/79 96 Room Air 02/17/17 12:00 98.4 67 18 152/84 97 Room Air Height (Feet): 6 Height (Inches): 0.00 Weight (Pounds): 180 Respiratory/Chest: lungs clear Cardiovascular: normal rate, regular rhythm, no gallop/murmur Abdomen: soft, non tender Extremities: no edema Microbiology Date/Time Source Procedure Growth Status 02/15/17 11:20 Foot Right Gram Stain - Final Resulted 02/15/17 11:20 Aerobic Culture - Preliminary Staphylococcus Aureus - Mrsa Enterococcus Faecium - Vre Pseudomonas Aeruginosa - Mdr Resulted 02/15/17 11:20 Foot Right Anaerobic Culture - Preliminary Resulted 02/15/17 11:20 Foot Right Gram Stain - Final Resulted 02/15/17 11:20 Aerobic Culture - Preliminary Pseudomonas Aeruginosa - Mdr Staphylococcus Aureus - Mrsa Gram Positive Cocci Resulted 02/15/17 11:20 Foot Right Anaerobic Culture Pending Resulted Laboratory Tests Test 02/18/17 04:20 White Blood Count 11.6 K/UL (4.8-10.8) H Red Blood Count 2.71 M/UL (4.70-6.10) L Hemoglobin 8.4 G/DL (14.2-18.0) L Hematocrit 25.3 % (42.0-52.0) L Mean Corpuscular Volume 94 FL (80-99) Mean Corpuscular Hemoglobin 30.9 PG (27.0-31.0) Mean Corpuscular Hemoglobin Concent 33.0 G/DL (32.0-36.0) Red Cell Distribution Width 13.8 % (11.6-14.8) Platelet Count 255 K/UL (150-450) Mean Platelet Volume 6.1 FL (6.5-10.1) L Neutrophils (%) (Auto) 63.0 % (45.0-75.0) Lymphocytes (%) (Auto) 24.7 % (20.0-45.0) Monocytes (%) (Auto) 9.6 % (1.0-10.0) Eosinophils (%) (Auto) 2.1 % (0.0-3.0) Basophils (%) (Auto) 0.7 % (0.0-2.0) Sodium Level 137 mEQ/L (135-145) Potassium Level 3.7 mEQ/L (3.4-4.9) Chloride Level 103 mEQ/L (98-107) Carbon Dioxide Level 21 mEQ/L (20-30) Anion Gap 13 (5-15) Blood Urea Nitrogen 56 mg/dL (7-23) H Creatinine 2.8 mg/dL (0.7-1.2) H Estimat Glomerular Filtration Rate 22.6 mL/min (>60) Glucose Level 135 mg/dL (74-106) #H Calcium Level 7.9 mg/dL (8.6-10.2) L Iron Level 27 ug/dL (59-158) L Total Iron Binding Capacity 155 ug/dL (250-400) L Percent Iron Saturation 17 % (15-50) Unsaturated Iron Binding 128 ug/dL (112-346) Ferritin 197 ng/mL (10-230) Pro-B-Type Natriuretic Peptide > 54848 pg/mL (0-125) H Random Vancomycin Level 19.0 ug/mL MARÍA SNIDER Feb 18, 2017 11:20"
[2017-02-18 12:00] VITALS: BP 144/80
[2017-02-18] MEDS ORDERED: Fluconazole 100mg tab ORAL SCH (12:00)
--- NOTE | 2017-02-18 12:12 | Podiatric Progress Note ---
Assessment/Plan Patient Sukumar Ceja is a 66 year old male who was admitted on Feb 09, 2017 at 12:00 with Problems: Assessment/Plan A 1. Infected stage 4 ulcer right heel with osteo right calc 2. DM 3. Hep C 4. Renal dz P 1. Cont IV Abx per ID 2.Cont local wound care 3. Bone cultures pending Subjective Constitutional: pain decreased Allergies: Coded Allergies: No Known Allergies (Unverified , 02/09/17) Objective Exam Last 24 Hour Vital Signs Date Time Temp Pulse Resp B/P Pulse Ox O2 Delivery O2 Flow Rate FiO2 02/18/17 09:02 76 145/76 02/18/17 09:01 76 145/76 02/18/17 08:00 98.2 70 19 145/71 95 Room Air 02/18/17 06:18 98.2 02/18/17 04:00 98.2 76 18 145/76 96 Room Air 02/18/17 00:00 97.5 70 18 156/82 96 Room Air 02/17/17 20:44 75 145/80 02/17/17 20:36 70 20 Nasal Cannula 2.0 28 02/17/17 20:00 98.2 76 18 148/74 97 Room Air 02/17/17 19:45 96 Room Air 21 02/17/17 19:45 Room Air 21 02/17/17 16:00 98.2 72 18 148/79 96 Room Air Laboratory Tests Test 02/18/17 04:20 White Blood Count 11.6 K/UL (4.8-10.8) H Red Blood Count 2.71 M/UL (4.70-6.10) L Hemoglobin 8.4 G/DL (14.2-18.0) L Hematocrit 25.3 % (42.0-52.0) L Mean Corpuscular Volume 94 FL (80-99) Mean Corpuscular Hemoglobin 30.9 PG (27.0-31.0) Mean Corpuscular Hemoglobin Concent 33.0 G/DL (32.0-36.0) Red Cell Distribution Width 13.8 % (11.6-14.8) Platelet Count 255 K/UL (150-450) Mean Platelet Volume 6.1 FL (6.5-10.1) L Neutrophils (%) (Auto) 63.0 % (45.0-75.0) Lymphocytes (%) (Auto) 24.7 % (20.0-45.0) Monocytes (%) (Auto) 9.6 % (1.0-10.0) Eosinophils (%) (Auto) 2.1 % (0.0-3.0) Basophils (%) (Auto) 0.7 % (0.0-2.0) Sodium Level 137 mEQ/L (135-145) Potassium Level 3.7 mEQ/L (3.4-4.9) Chloride Level 103 mEQ/L (98-107) Carbon Dioxide Level 21 mEQ/L (20-30) Anion Gap 13 (5-15) Blood Urea Nitrogen 56 mg/dL (7-23) H Creatinine 2.8 mg/dL (0.7-1.2) H Estimat Glomerular Filtration Rate 22.6 mL/min (>60) Glucose Level 135 mg/dL (74-106) #H Calcium Level 7.9 mg/dL (8.6-10.2) L Iron Level 27 ug/dL (59-158) L Total Iron Binding Capacity 155 ug/dL (250-400) L Percent Iron Saturation 17 % (15-50) Unsaturated Iron Binding 128 ug/dL (112-346) Ferritin 197 ng/mL (10-230) Pro-B-Type Natriuretic Peptide > 66770 pg/mL (0-125) H Random Vancomycin Level 19.0 ug/mL Microbiology Date/Time Source Procedure Growth Status 02/10/17 11:15 Blood Not Otherwise Specified Blood Culture - Final NO GROWTH AFTER 5 DAYS Complete 02/13/17 19:16 Body Fluid Wound Gram Stain - Final Resulted 02/13/17 19:16 Aerobic Culture - Final Pseudomonas Aeruginosa - Mdr Staphylococcus Aureus - Mrsa Enterococcus Faecium - Vre Resulted 02/13/17 19:16 Body Fluid Wound Anaerobic Culture - Preliminary Resulted 02/09/17 11:30 Nasal Nares MRSA Culture - Final NO METHICILLIN RESISTANT STAPH AUREUS... Complete 02/11/17 15:20 Stool Clostridium difficile Toxin Assay - Final Complete 02/14/17 15:50 Urine,Clean Catch Urine Culture - Final Bina Albicans Complete 02/15/17 11:20 Foot Right Gram Stain - Final Resulted 02/15/17 11:20 Aerobic Culture - Preliminary Staphylococcus Aureus - Mrsa Enterococcus Faecium - Vre Pseudomonas Aeruginosa - Mdr Resulted 02/15/17 11:20 Foot Right Anaerobic Culture - Preliminary Resulted Dermatological Wound Assessment : Wound location: right, plantar, heel Wynn Classification: 3 deep abcess or osteomye Pressure ulcer stage: IV Exposed structure through the: bone Probes to bone: Yes Exudate Description: sero-sanguineous Exudate Amount: Mild Wound Margin: well circumscribed Malodor: none/absent Skin Surrounding Wound: intact Cleansing Solution/Irrigant: normal saline Dressing types: packing gauze 0.5" Offloading: non weight bearing JOSE TIRADO Feb 18, 2017 12:12
[2017-02-18] MEDS ORDERED: ACETAMINOPHEN325 M1 ORAL (13:25)
[2017-02-18] MEDS ORDERED: MYLANTA30 M1 ORAL (13:27)
[2017-02-18] MEDS ORDERED: ALBUTEROL2.5 MG/3 M INH (13:28)
[2017-02-18] MEDS ORDERED: PROCRIT10000 UNIT SUBQ (13:35)
[2017-02-18] MEDS ORDERED: PROTONIX20 MG ORAL (13:37)
[2017-02-18] MEDS ORDERED: NOVOLOG100 UNIT/5 SQ (13:41)
[2017-02-18] MEDS ORDERED: CEFEPIME HCL1 GM IVPB (13:45)
[2017-02-18] MEDS ORDERED: LINEZOLID600 MG PO (13:47)
[2017-02-18] MEDS ORDERED: ZOLPIDEM TARTRAT5 MG ORAL (13:48)
[2017-02-18] MEDS ORDERED: VENOFER100 MG/5 M IV (14:01)
[2017-02-18 16:00] VITALS: BP 153/83
[2017-02-18] MEDS: Cefepime HCl 1 GM in D5W 55 ML IVPB SCH (16:51)
[2017-02-18] MEDS ORDERED: Tubing IV Secondary IV ONE (20:44)
[2017-02-18] MEDS ORDERED: NS 275ml ONE (20:44)
[2017-02-18] MEDS ORDERED: Iron Sucrose 100 MG in NS 55 ML IVPB SCH (21:00)
--- NOTE | 2017-02-18 21:46 | General Progress Note ---
Assessment/Plan Assessment/Plan Assessment - Anemia, likely due to renal failure - OB (-) stools - Agitation - Azotemia - Hepatitis C - heel decub Recommendations - push po - monitor labs --> H&H stable - check AFP --> normal - elevated HOB - can f/u with GI for outpt HCV Rx Subjective Allergies: Coded Allergies: No Known Allergies (Unverified , 02/09/17) Subjective above noted feels well no abd complaints Objective Last 24 Hour Vital Signs Date Time Temp Pulse Resp B/P Pulse Ox O2 Delivery O2 Flow Rate FiO2 02/18/17 19:12 Nasal Cannula 2.0 28 02/18/17 19:11 96 Nasal Cannula 2.0 28 02/18/17 19:10 67 18 Nasal Cannula 2.0 02/18/17 16:00 98.1 65 19 153/83 95 Room Air 02/18/17 12:00 97.8 65 20 144/80 95 Room Air 02/18/17 09:02 76 145/76 02/18/17 09:01 76 145/76 02/18/17 08:00 98.2 70 19 145/71 95 Room Air 02/18/17 06:50 65 18 Nasal Cannula 2.0 02/18/17 06:49 Room Air 02/18/17 06:48 94 Room Air 02/18/17 06:18 98.2 02/18/17 04:00 98.2 76 18 145/76 96 Room Air 02/18/17 00:00 97.5 70 18 156/82 96 Room Air Intake and Output 02/17/17 02/18/17 19:00 07:00 Intake Total 590 ml 500 ml Output Total 900 ml 2000 ml Balance -310 ml -1500 ml Intake Oral 480 ml 500 ml IV Total 110 ml Output Urine Total 900 ml 2000 ml # Bowel Movements 2 1 Laboratory Tests 02/18/17 04:20: White Blood Count 11.6H, Red Blood Count 2.71L, Hemoglobin 8.4L, Hematocrit 25.3L, Mean Corpuscular Volume 94, Mean Corpuscular Hemoglobin 30.9, Mean Corpuscular Hemoglobin Concent 33.0, Red Cell Distribution Width 13.8, Platelet Count 255, Mean Platelet Volume 6.1L, Neutrophils (%) (Auto) 63.0, Lymphocytes ( %) (Auto) 24.7, Monocytes (%) (Auto) 9.6, Eosinophils (%) (Auto) 2.1, Basophils (%) (Auto) 0.7, Sodium Level 137, Potassium Level 3.7, Chloride Level 103, Carbon Dioxide Level 21, Anion Gap 13, Blood Urea Nitrogen 56H, Creatinine 2.8H , Estimat Glomerular Filtration Rate 22.6, Glucose Level 135#H, Calcium Level 7.9L, Iron Level 27L, Total Iron Binding Capacity 155L, Percent Iron Saturation 17, Unsaturated Iron Binding 128, Ferritin 197, Pro-B-Type Natriuretic Peptide > 71715X, Random Vancomycin Level 19.0 Height (Feet): 6 Height (Inches): 0.00 Weight (Pounds): 180 Objective WDWN NCAT supple CTA RRR Soft NT ND no edema, dressing BESS HOGAN Feb 18, 2017 21:46
--- NOTE | 2017-02-20 17:29 | Consultation ---
DATE OF CONSULTATION: 02/17/2017 CONSULTING PHYSICIAN: Trey Glao M.D. REFERRING PHYSICIAN: Rajat Wood M.D. REASON FOR EVALUATION: I was asked to see this patient by Dr. Rajat Wood for evaluation of right foot gangrene and end-stage renal disease. HISTORY OF PRESENT ILLNESS: He is a 66-year-old patient who was evaluated in the emergency room and noted to have grossly abnormal renal function. Because he had gangrene of the right heel, he was started on antibiotic treatment after cultures were taken. He is a somewhat mentally challenged individual. PAST MEDICAL HISTORY: Diabetes, coronary artery disease, alcohol abuse, cirrhosis, coronary artery disease with congestive heart failure, and chronic renal failure. He is a resident of a SNF. PHYSICAL EXAMINATION: GENERAL: He is obviously mentally impaired. NECK: There are no carotid bruits. CARDIOVASCULAR: Cardiac sounds are normal. Rhythm is regular. No murmurs are heard. ABDOMEN: Examination of the abdomen does not reveal abdominal tenderness. EXTREMITIES: Both femoral pulses are palpable. The left popliteal pulse is palpable, but no other pulses are present in either lower extremity. There is a gross deep ulcer of the right heel. A picture of this is included in the chart. There are early signs of ischemia and ulceration of the left heel and great toe. There is an obvious left cephalic vein, which should be useful for AV fistula. RECOMMENDATION: This patient should have a below-knee amputation on the right after bilateral angiography in the operating room. I will discuss this with the Radiology Department. A left brachiocephalic AV fistula will most likely be successful on the basis of physical examination. Surgery is planned for 02/21/2017. Thank you for referring this patient for consultation. Trey Galo M.D. : JOSEPHINE JOB#: [id number] CC:
--- NOTE | 2017-02-21 11:07 | Discharge Summary ---
Discharge Summary Hospital Course Date of Admission Feb 09, 2017 at 12:00 Date of Discharge Feb 18, 2017 at 20:45 Admitting Diagnosis ANEMIA,RENAL FAILURE HPI Sukumar Ceja is a 66 year old male who was admitted on Feb 09, 2017 at 12:00 for Anemia,Renal Failure Hospital Course dc summary #[id number] Discharge Medications Continued Medications: Acetaminophen* (Acetaminophen 325MG Tablet*) 325 Mg Tablet 650 MG ORAL Q4H PRN for Fever/Headache/Mild Pain, TAB Al Hydroxide/mg Hydroxide (Mag-Al Liquid) 30 Ml Oral.susp 30 ML ORAL Q4HR PRN for Abdominal cramps, ML Albuterol Sulfate* (Albuterol Sulfate Hhn*) 2.5 Mg/3 Ml Vial.neb 2.5 MG INH Q4H PRN for Shortness of Breath, EA Amlodipine Besylate* (Amlodipine Besylate*) 5 Mg Tablet 5 MG ORAL DAILY, TAB Ascorbic Acid* (Vitamin C*) 500 Mg Tablet 500 MG ORAL DAILY, #30 TAB 0 Refills Carvedilol (Coreg) 25 Mg Tablet 25 MG ORAL EVERY 12 HOURS, TAB Cefepime Hcl (Cefepime Hcl) 1 Gm Vial 1 GM IVPB Q24H for 39 Days, VIAL Epoetin Wagner (Procrit) 10,000 Unit/1 Ml Vial 07755 UNIT SUBQ Q TUE-TUE-TUE, VIAL Folic Acid* (Folic Acid*) 1 Mg Tablet 1 MG ORAL DAILY, TAB Hydrocodone Bit/Acetaminophen 5-325* ([place] 5-325*) 1 Each Tablet 1 TAB ORAL Q4H PRN for For Pain, TAB 0 Refills Insulin Aspart (Novolog) 100 Unit/1 Ml Vial SQ AC+HS Iron Sucrose (Venofer) 100 Mg/5 Ml Vial 100 MG IV QHS for 5 Days, VIAL Linezolid (Linezolid) 600 Mg Tablet 600 MG PO BID for 42 Days, TAB Multivitamin (One Daily) 1 Each Tablet 1 TAB ORAL DAILY, #30 TAB 0 Refills Pantoprazole Sodium (Protonix) 20 Mg Tablet.dr 40 MG ORAL DAILY, TAB Thiamine Hcl* (Vitamin B-1*) 100 Mg Tablet 100 MG ORAL DAILY, #30 TAB 0 Refills Zinc Sulfate (Zinc Sulfate*) 220 Mg Capsule 220 MG ORAL DAILY, CAP 0 Refills Zolpidem Tartrate* (Zolpidem Tartrate*) 5 Mg Tablet 5 MG ORAL BEDTIME PRN for Insomnia, TAB 0 Refills Discontinued Medications: Acetaminophen (Acetaminophen) 650 Mg/20.3 Ml Solution 650 MG ORAL Q6H PRN for Prn Headache/Temp > 101, ML 0 Refills Acetaminophen* (Tylenol Extra Strength*) 500 Mg Tablet 500 MG ORAL Q4HR PRN for Mild Pain/Temp > 100.5, TAB 0 Refills Insulin Human Lispro (Humalog) 100 Unit/1 Ml Vial Unknown Dose SUBQ, #1 UNIT 0 Refills Discharge Condition Upon Discharge: stable Discharge Disposition Patient was discharged to SNF/Subacute Facility(03) Discharge Diagnoses: Discharge Instructions Discharge Instructions Special Instructions I have been assigned to complete a D/C Summary on this account. I was not involved in the patient management Vesta Tenorio NP (Vanchtein) Feb 21, 2017 11:07
--- NOTE | 2017-02-21 23:28 | Discharge Summary 2 SIG ---
DATE OF ADMISSION: 02/09/2017 DATE OF DISCHARGE: 02/18/2017 The patient is admitted under Dr. Navarro. REASON FOR ADMISSION: The patient is a 66-year-old male, brought for abnormal labs. The patient is noted to be anemic with leukocytosis and evidence of renal failure. The patient was sent for evaluation. The patient has a past medical history of cirrhosis, diabetes, and congestive heart failure. The patient was seen and evaluated in the emergency room and found to have anemia requiring blood transfusion and evidence of acute renal failure. No fever. No chills. No pain. Elevated leukocytosis of 13.3. Afebrile. Hemoglobin 7.5 and hematocrit 23.6 and BUN is 107 and creatinine 3.3. LFTs stable. Urinalysis, +3 protein. Chest x-ray shows possible right base infiltrate. The patient was admitted for further management. ADMITTING DIAGNOSES: Includes, 1. Possible sepsis syndrome. 2. Acute renal failure. 3. Anemia. 4. Leukocytosis. 5. Possible pneumonia. 6. Diabetes. 7. Congestive heart failure. 8. Stage IV right heel ulcer, present on admission. HOSPITAL STAY: The patient was admitted to the hospital. ID consult requested. The patient was started on antibiotics. ID followed up with the culture and adjusted antibiotics accordingly. Podiatry consult was requested. Bricklayer Apprentice seen and evaluated the patient. Subsequently, the patient undergone debridement with a bone culture. Foot x-ray revealed heel ulcer with finding suspicious for focal osteomyelitis of the underlying calcaneus. Antibiotic regimen optimized by ID to have a total of 42 days of antibiotics, initially on cefepime and vancomycin. Vancomycin discontinued due to the renal failure and the patient prior to discharge started on oral linezolid for a total of 42 days. Cefepime to be continued for additional 40 days. Wound care as poor Podiatry recommendation. Stool for C. difficile was negative and blood cultures were negative. Bone biopsy still pending and fluid in the wound culture revealed methicillin-resistant Staphylococcus aureus, vancomycin-resistant enterococcus, and Pseudomonas aeruginosa, multidrug resistant. Motor Installer followed the patient for acute renal failure. Per assembler camper, the patient initially was on diuretic due to the congestive heart failure and then diuretic was discontinued. Renal ultrasound was done and revealed no evidence of hydronephrosis. Nonobstructive left nephrolithiasis. Otherwise, negative retroperitoneal ultrasound. Motor Installer recommended vascular surgery evaluation and consider intravenous fistula as soon as possible. Vascular surgeon seen the patient. He recommended right below-knee amputation after bilateral angiography in the operating room as well as the AV fistula placement. Vascular mapping study was done and was stable. The PICC line was placed prior to discharge for intravenous cefepime. The patient was transfused with a total of two units of packed red blood cells. Hemoglobin from initial 7.5, then up and prior to discharge, hemoglobin is 8.4. Stool for OB was negative. According to assembler camper, the patient likely has anemia of chronic kidney disease. Creatinine with improvement from 3.3 on admission to 2.8 upon discharge. BUN is trending down to 56. ProBNP above 70,000. GI seen and evaluated the patient. Per GI, anemia also likely secondary to renal failure. Stool OB was negative. Hemoglobin and hematocrit stable. Alpha-fetoprotein within normal limits. Recommended to elevate head of the bed and hepatitis panel was positive for hepatitis C. So, GI recommended to follow up with GI for outpatient hepatitis C treatment and push oral fluids. Abdominal ultrasound revealed gallbladder wall thickening, nonspecific, probably secondary to ascites. No gallstones. No other evidence of acute cholecystitis. Nonobstructive left nephrolithiasis. CT of the abdomen and pelvis revealed mild gallbladder wall thickening/edema, nonspecific. No other evidence of acute abdominal pelvic pathology. The patient was on Epogen for anemia as well as due to the history of alcohol abuse. The patient to continue with the folic acid and thiamine and multivitamin. The patient is status post Venofer. The iron panel revealed low iron. Blood pressure was managed with calcium channel janeth and beta-janeth was stable. The wound care nurse seen the patient and recommended wound care for right heel stage IV and sacral deep tissue injury as well. The patient was stable for discharge back to the [facility] facility. DISCHARGE DIAGNOSES: Includes, 1. Renal failure, acute on chronic kidney disease, stage V. 2. Anemia of chronic kidney disease, status post blood transfusion. 3. Acute on chronic encephalopathy. 4. Possible sepsis syndrome. 5. Stage IV right heel ulcer present on admission. 6. Status post debridement with bone culture. 7. Calcaneal osteomyelitis, right heel. 8. Diabetes mellitus. 9. Hepatitis C. DISCHARGE MEDICATIONS: See medication reconciliation list. DISCHARGE INSTRUCTIONS: The patient to follow up with medical doctor at the facility. Corbin Navarro M.D. I have been assigned to dictate discharge summary on this account and I was not involved in the patient's management. Vesta Tenorio N.P. (vanchtein) DR: KYARA JOB#: [id number] CC:
== END 2017-02-18 20:45 | DRG 317 ==
LOC: EDBD 09:01 → EMR 09:41 → 2E 12:00 → EDBEDREQ 13:27 → 2E 02-11 05:46 → 4W 02-13 13:00
PROC: 30233N0 Transfusion of Autologous Red Blood Cells into Peripheral Vein, Percutaneous Approach (ICD-10-PCS; 2017-02-09)
PROC: 0QBL0ZX Excision of Right Tarsal, Open Approach, Diagnostic (ICD-10-PCS; 2017-02-15)
PROC: 0KBV0ZZ Excision of Right Foot Muscle, Open Approach (ICD-10-PCS; principal; 2017-02-15 07:00)
PROC: 02HV33Z Insertion of Infusion Device into Superior Vena Cava, Percutaneous Approach (ICD-10-PCS; 2017-02-16)
DX: M86.8X7 Other osteomyelitis, ankle and foot (principal); N17.9 Acute kidney failure, unspecified; A41.9 Sepsis, unspecified organism; G93.40 Encephalopathy, unspecified; L89.614 Pressure ulcer of right heel, stage 4; J18.9 Pneumonia, unspecified organism; E87.2 Acidosis; I96 Gangrene, not elsewhere classified; I12.0 Hypertensive chronic kidney disease with stage 5 chronic kidney disease or end stage renal disease; D64.9 Anemia, unspecified; E11.65 Type 2 diabetes mellitus with hyperglycemia; N18.5 Chronic kidney disease, stage 5; K92.2 Gastrointestinal hemorrhage, unspecified; I50.9 Heart failure, unspecified; K74.60 Unspecified cirrhosis of liver; D63.1 Anemia in chronic kidney disease; I25.2 Old myocardial infarction; I25.10 Atherosclerotic heart disease of native coronary artery without angina pectoris; R19.7 Diarrhea, unspecified; F10.21 Alcohol dependence, in remission; Z79.4 Long term (current) use of insulin; I73.9 Peripheral vascular disease, unspecified; B19.20 Unspecified viral hepatitis C without hepatic coma; B95.62 Methicillin resistant Staphylococcus aureus infection as the cause of diseases classified elsewhere; B96.5 Pseudomonas (aeruginosa) (mallei) (pseudomallei) as the cause of diseases classified elsewhere; Z16.22 Resistance to vancomycin related antibiotics
CPT/HCPCS: 36415; 36569; 71010; 74176; 76700; 76775; 76937; 80048; 80053; 80061; 80202; 81001; 81003; 81050; 82044; 82105; 82140; 82150; 82270; 82565; 82570; 82575; 82728; 82746; 82962; 83540; 83550; 83690; 83880; 84100; 84156; 85007; 85025; 85610; 85730; 86334; 86703; 86803; 86850; 86900; 86901; 86920; 87040; 87070; 87075; 87081; 87086; 87181; 87205; 87324; 87340; 87517; 93005; 93922; 93925; 94003; 94150; 94640; 94664; 94760; J1815; J2250

== ENCOUNTER 2017-03-16 17:02 | Inpatient (IN) | payer MEDICARE, OTHER ==
[~2017-03-16] VITALS: Ht 172.7 cm; Wt 72.6 kg
[~2017-03-16 17:02] MED LIST: ACETAMINOPHEN325 M1 ORAL; ALBUTEROL2.5 MG/3 M INH; AMLODIPINE BESYL5 MG ORAL; ASPIRIN EC81 MG ORAL; ATORVASTATIN CA40 MG ORAL; CEFEPIME HCL1 GM IVPB; COREG25 MG ORAL; FOLIC ACID1 MG ORAL; FUROSEMIDE40 MG ORAL; HUMALOG 75/255 UNIT1 SUBQ; LINEZOLID600 MG PO; MYLANTA30 M1 ORAL; NORCO 5-325 TA1 EACH ORAL; NOVOLOG100 UNIT/5 SQ; ONE DAILY1 EAC3 ORAL; PRO-STAT LIQUID30 ML ORAL; PROCRIT10000 UNIT SUBQ; PROTONIX20 MG ORAL; TYLENOL EXTRA500 MG ORAL; TYLENOL650 MG/20. ORAL; VENOFER100 MG/5 M IV; VITAMIN B-1100 MG ORAL; VITAMIN C500 M1 ORAL; ZINC SULFATE220 M1 ORAL; ZOLPIDEM TARTRAT5 MG ORAL
[2017-03-16] MEDS ORDERED: ZYVOX600 MG ORAL (17:15)
[2017-03-16] MEDS ORDERED: Glucagon 1mg Inj IV ONE (17:15)
[2017-03-16] MEDS ORDERED: Calcium Gluconate 1gm/10ml vial IVP ONE (17:30)
[2017-03-16 18:11] VITALS: BP 118/98
[2017-03-16 18:30] LABS: ALANINE AMINOTRANSFERASE 26 U/L (3-41); ALBUMIN/GLOBULIN RATIO 0.6 (1.0-2.7); ANION GAP 16 (5-15); ASPARTATE AMINO TRANSFERASE 30 U/L (5-40); CALCIUM 8.4 mg/dL (8.6-10.2); CARBON DIOXIDE 11 mEQ/L (20-30); CHLORIDE 115 mEQ/L (98-107); CREATININE 2.7 mg/dL (0.7-1.2); GLOMERULAR FILTRATION RATE 23.6 mL/min (>60); HEMOLYSIS 26; SODIUM 142 mEQ/L (135-145)
[2017-03-16 18:31] LABS: TROPONIN I < 0.30 ng/mL (<=0.30)
[2017-03-16 18:33] LABS: POTASSIUM 6.7 mEQ/L (3.4-4.9)
[2017-03-16 18:36] LABS: MEAN CORPUSCULAR HEMOGLOBIN 32.3 PG (27.0-31.0); MEAN CORPUSCULAR HGB CONC 31.6 G/DL (32.0-36.0); MEAN CORPUSCULAR VOLUME 102 FL (80-99); PLATELET COUNT 28 K/UL (150-450); RED BLOOD COUNT 2.83 M/UL (4.70-6.10); WHITE BLOOD COUNT 5.4 K/UL (4.8-10.8)
[2017-03-16 18:41] LABS: CKMB 17.4 ng/mL (< 6.7)
[2017-03-16] MEDS ORDERED: Sodium Polystyrene Sulfonate 15gm Powder ORAL ONE (18:45)
--- NOTE | 2017-03-16 19:06 | Emergency Room Report ---
History of Present Illness General Chief Complaint: General Complaint Source: Patient Present Illness HPI 66-year-old male presents ED for evaluation. Per EMS patient noted be [facility]cardic [facility]. Patient has dementia is at his normal mentation. No reported fevers or chills. No Reported chest pain or shortness of breath. Patient has history of kidney disease but is currently not on dialysis. No other aggravating or relieving factors. No other associated symptoms Allergies: Coded Allergies: No Known Allergies (Unverified , 02/09/17) Patient History Past Medical History: DM, HTN, other - cirrhosis Pertinent Family History: none Social History: Denies: alcohol use, drug use, smoking Immunizations: UTD Reviewed Nursing Documentation: PMH: Agreed, PSxH: Agreed Nursing Documentation-PMH Past Medical History: No History, Except For Hx Cardiac Problems: Yes - CHF, PVD, Anemia, Eleveated WBC, cellulitis Hx Hypertension: Yes Hx Diabetes: Yes Hx Gastrointestinal Problems: Yes - Liver Cirrhosis, alcohol abuse Review of Systems All Other Systems: negative except mentioned in HPI Physical Exam Vital Signs Date Time Temp Pulse Resp B/P Pulse Ox O2 Delivery O2 Flow Rate FiO2 03/16/17 17:03 39 16 120/68 100 Room Air Sp02 EP Interpretation: reviewed, normal General Appearance: no apparent distress, other - encephaloapthy Head: normocephalic Eyes: bilateral eye PERRL, bilateral eye normal inspection ENT: normal ENT inspection Neck: normal inspection Respiratory: chest non-tender, lungs clear, normal breath sounds, speaking full sentences Cardiovascular #1: bradycardia Gastrointestinal: normal inspection Rectal: deferred Genitourinary: no CVA tenderness Musculoskeletal: normal inspection Neurologic: other - encephalopathy Psychiatric: other - encephaloopathy Skin: normal inspection Lymphatic: normal inspection Procedures Critical Care Time Critical Care Time i. I feel this is a highly complex case requiring extensive working including EKG/Rhythm strip, Xray/CT/US, Blood/urine lab work, repeat exams while in ED, and administration of strong opiates/narcotics for pain control, admission to hospital or close patient follow up. Total time: 30 min bedside evaluation and treatment excludes procedures (EKG). Reason for critical care: Bradycardia, hyperkalemia Possible complications: hypotension, hypertension, MA, shock, arrhythmias, metabolic acidosis, end organ damage, respiratory failure. Interventions: Labs, EKG, chest x-ray, IV fluids. Calcium. Glucagon. Insulin/ D50, Kayexalate Course: Patient brought in for bradycardia. Heart rate in the 30s. Blood pressure normal. Patient is on carvedilol. History of renal disease but not on dialysis. Patient initially given glucagon, calcium. EKG shows bradycardia with prolonged QT. Potassium 6.7, creatinine 2.7. Troponins negative. Given insulin/D50/Kayexalate. Blood pressure maintaining. Consultations: nursing staff, EMS, family Performed by: Dr Victor Tolerated well condition = critical j. because of unstable vital signs this patient had a condition that could potentially threaten life or limb. I feel this is a critical patient who required my full attention while patient was considered critical. Total Critical Care Time excluding procedures was greater than 35 minutes Medical Decision Making Diagnostic Impression: Primary Impression: Hyperkalemia, diminished renal excretion Additional Impressions: Bradycardia CKD (chronic kidney disease) stage 5, GFR less than 15 ml/min CHF (congestive heart failure) Qualified Codes: I50.9 - Heart failure, unspecified ER Course Hospital Course 66-year-old male brought in for bradycardia. Differential diagnoses include: MA/unstable angina, V. tach, bradycardia, hyperkalemia, fluid overload Clinical course Patient placed on stretcher. on cardiac monitor technician. After initial history and physical I ordered labs, EKG EKG-bradycardi, prolonged QT Patient given glucagon given history of BB use, given calcium initially labs reviewed- potassium 6.7. BUN/Cr elevated. Hemoglobin/hematocrit normal. trop negative CXR - pulmonary congestion Given Kayexalate, insulin/D50. Blood pressure maintaining well. Case discussed with Dr. Navarro and he agreed to accept the patient to his service for further care and support I. I feel this is a highly complex case requiring extensive working including EKG/Rhythm strip, Xray/CT/US, Blood/urine lab work, repeat exams while in ED, and administration of strong opiates/narcotics for pain control, admission to hospital or close patient follow up. Diagnosis - hyperkalemia, bradycardia, CKD, CHF Admitted to [facility] in critical condition Labs Test 03/16/17 17:46 White Blood Count 5.4 K/UL (4.8-10.8) Red Blood Count 2.83 M/UL (4.70-6.10) Hemoglobin 9.1 G/DL (14.2-18.0) Hematocrit 29.0 % (42.0-52.0) Mean Corpuscular Volume 102 FL (80-99) Mean Corpuscular Hemoglobin 32.3 PG (27.0-31.0) Mean Corpuscular Hemoglobin Concent 31.6 G/DL (32.0-36.0) Red Cell Distribution Width 20.0 % (11.6-14.8) Platelet Count 28 K/UL (150-450) Mean Platelet Volume 10.0 FL (6.5-10.1) Neutrophils (%) (Auto) % (45.0-75.0) Lymphocytes (%) (Auto) % (20.0-45.0) Monocytes (%) (Auto) % (1.0-10.0) Eosinophils (%) (Auto) % (0.0-3.0) Basophils (%) (Auto) % (0.0-2.0) Sodium Level 142 mEQ/L (135-145) Potassium Level 6.7 mEQ/L (3.4-4.9) Chloride Level 115 mEQ/L (98-107) Carbon Dioxide Level 11 mEQ/L (20-30) Anion Gap 16 (5-15) Blood Urea Nitrogen 58 mg/dL (7-23) Creatinine 2.7 mg/dL (0.7-1.2) Estimat Glomerular Filtration Rate 23.6 mL/min (>60) Glucose Level 142 mg/dL (74-106) Calcium Level 8.4 mg/dL (8.6-10.2) Total Bilirubin < 0.2 mg/dL (0.0-1.2) Aspartate Amino Transf (AST/SGOT) 30 U/L (5-40) Alanine Aminotransferase (ALT/SGPT) 26 U/L (3-41) Alkaline Phosphatase 233 U/L (40-129) Total Creatine Kinase 158 U/L (38-174) Creatine Kinase MB 17.4 ng/mL (< 6.7) Creatine Kinase MB Relative Index 11.0 Troponin I < 0.30 ng/mL (<=0.30) Pro-B-Type Natriuretic Peptide 24743 pg/mL (0-125) Total Protein 7.0 g/dL (6.6-8.7) Albumin 2.8 g/dL (3.5-5.2) Globulin 4.2 g/dL Albumin/Globulin Ratio 0.6 (1.0-2.7) EKG Diagnostic Results Rate: bradycardiac Rhythm: NSR ST Segments: other - prolonged QT ASA given to the pt in ED: No Rhythm Strip Diag. Results EP Interpretation: yes Rhythm: NSR, no PVC's, no ectopy Chest X-Ray Diagnostic Results EP Interpretation: Yes Findings: no pneumothorax, no acute cardiopulmonary disease, other - pulmonary congestion Number of Views: 1 Last Vital Signs Date Time Temp Pulse Resp B/P Pulse Ox O2 Delivery O2 Flow Rate FiO2 03/16/17 18:11 39 18 118/98 96 Room Air Status: improved Disposition: ADMITTED INPATIENT Condition: Critical Referrals: KELSEA NAVARRO (PCP) MOLLY VICTOR M.D. March 16, 2017 19:06
[2017-03-16 19:18] VITALS: BP 118/98
[2017-03-16 19:35] LABS: LYMPHOCYTES % (MANUAL) 25 % (20-45); NEUTROPHILS % (MANUAL) 66 % (45-75); TOTAL CELLS COUNTED 100
[2017-03-16 19:36] LABS: ANISOCYTOSIS 1+; BAND NEUTROPHILS % (MANUAL) 0 % (0-8); BASOPHILS % (MANUAL) 0 % (0-2); EOSINOPHILS % (MANUAL) 0 % (0-3); HYPOCHROMASIA 1+; PLATELET ESTIMATE DECREASED; PLATELET MORPHOLOGY NORMAL
[2017-03-16 19:39] LABS: MACROCYTES 1+
[2017-03-16] MEDS ORDERED: FERROUSUL325 M1 PO (21:52)
[2017-03-16] MEDS ORDERED: HUMALOG100 UNIT/4 SUBQ (21:52)
[2017-03-16] MEDS ORDERED: Norco 5mg/325mg tab ORAL PRN (22:15)
[2017-03-16] MEDS ORDERED: Albuterol ud Inhalation HHN PRN (23:00)
[2017-03-16] MEDS ORDERED: Zolpidem 5mg tab ORAL PRN (23:00)
[2017-03-16] MEDS ORDERED: Mylanta II UD 30ml ORAL PRN (23:00)
[2017-03-16] MEDS ORDERED: Atropine Inj 1mg/10ml Syr ONE (23:27)
[2017-03-16] MEDS ORDERED: Atropine Inj 1mg/10ml Syr IVP ONE (23:45)
[2017-03-17] MEDS ORDERED: HydrALAZINE 50mg tab ORAL PRN
[2017-03-17] MEDS ORDERED: Sodium Polystyrene Sulfonate 15gm Powder ORAL ONE (00:15)
[2017-03-17 04:00] VITALS: BP 105/45
--- NOTE | 2017-03-17 05:21 | Consultation ---
DATE OF CONSULTATION: 03/16/2017 CARDIOLOGY CONSULT REQUESTING PHYSICIAN: Corbin Navarro M.D. REASON FOR CONSULTATION: Bradycardia. HISTORY OF PRESENT ILLNESS: This is a 66-year-old male, who presented to the emergency room because of bradycardia noted at the care home. He has a history of chronic kidney disease and baseline dementia. He was not able to give any other associated complaints or symptoms. No other details available from care home staff. Medication compliance was confirmed. In the emergency room, concern was raised over abnormal EKG revealing sinus bradycardia with ventricular rate of 38 and prolonged QT interval. The patient also was noted to have a potassium level of 6.7 in the emergency room workup ____ glucagon, insulin, Kayexalate, intravenous fluid. I have been asked to assist with further cardiovascular care. ALLERGIES: None. PAST MEDICAL HISTORY: Type 2 diabetes mellitus, hypertensive heart disease, liver disease of unknown etiology with cirrhosis, chronic anemia, peripheral artery disease, and chronic kidney disease. MEDICATIONS: Prior to admission, reviewed and reconciled and include carvedilol. SOCIAL HISTORY: Prior history of alcoholism. Nonsmoker. FAMILY HISTORY: Not known. PHYSICAL EXAMINATION: GENERAL: Blood pressure 120/68, pulse 39, respiratory rate 16, and afebrile. HEENT: Normocephalic and atraumatic. Conjunctivae are pink. Sclerae are anicteric. Oropharynx is clear. Mucous membranes dry. NECK: Supple. Jugular venous pressure is slightly elevated. Lungs with diminished breath sounds. No wheezing or rales. CARDIAC: Regular rhythm. Slow rate. Normal S1 and S2 with no murmur, rub, or gallop. ABDOMEN: Soft and nontender. No ascites. Palpable liver and hip. EXTREMITIES: Revealed no clubbing, cyanosis, or edema. He states there are skin changes of the lower extremities with evidence of resolving cellulitis. LABORATORY AND DIAGNOSTIC DATA: Chest x-ray shows mild pulmonary venous congestion. Labs, white count 5.4, hemoglobin 9.1, and MCV 102. Sodium 142, potassium 6.7, chloride 115, bicarbonate 11, BUN 58, and creatinine 2.7. Troponin negative. Pro-natriuretic peptide 30,000 and albumin 2.8. IMPRESSION: 1. Severe sinus bradycardia, presently asymptomatic, likely due to underlying sinus node disease, exacerbated by hyperkalemia and beta-janeth therapy. 2. Gfcnv-rx-hxuqkio diastolic congestive heart failure. 3. Hyperkalemia. 4. Metabolic acidosis. 5. Bazwj-ey-eaoruka renal failure. 6. Chronic liver disease. 7. History of alcoholism. 8. Hypertensive heart disease. 9. Type 2 diabetes mellitus. 10. Macrocytic anemia. CONDITION: Critical. PROGNOSIS: Guarded. PLAN: 1. Cautious hydration, Kayexalate, glucose, and insulin as needed. 2. Follow up chemistry panel. Underwood catheter to monitor urine output. Check B12 and folate levels. 3. Check thyroid panel. 4. Check coagulation parameters in view of underlying liver disease. 5. Antihypertensives on an as-needed basis only until heart rate is stabilized. 6. Atropine at bedside. Benjamín Nguyễn M.D. DR: Tim JOB#: [id number] CC:
[2017-03-17 05:35] LABS: MEAN CORPUSCULAR HEMOGLOBIN 30.4 PG (27.0-31.0); MEAN CORPUSCULAR HGB CONC 29.7 G/DL (32.0-36.0); MEAN CORPUSCULAR VOLUME 103 FL (80-99); MEAN PLATELET VOLUME 11.9 FL (6.5-10.1); PLATELET COUNT 23 K/UL (150-450); RED BLOOD COUNT 2.72 M/UL (4.70-6.10); RED CELL DISTRIBUTION WIDTH 19.9 % (11.6-14.8); WHITE BLOOD COUNT 4.1 K/UL (4.8-10.8)
[2017-03-17 05:55] LABS: MAGNESIUM 2.2 mg/dL (1.7-2.5)
[2017-03-17] MEDS ORDERED: HydrALAZINE 50mg tab ORAL SCH (06:00)
[2017-03-17 06:06] LABS: ALBUMIN/GLOBULIN RATIO 0.5 (1.0-2.7); CALCIUM 8.8 mg/dL (8.6-10.2); CREATININE 3.1 mg/dL (0.7-1.2); GLOMERULAR FILTRATION RATE 20.1 mL/min (>60); TOTAL PROTEIN 6.9 g/dL (6.6-8.7)
[2017-03-17 06:09] LABS: THYROID STIMULATING HORMONE 1.94 uIU/mL (0.300-4.500)
[2017-03-17] MEDS: NovoLOG Insulin Flexpen SUBQ SCH ×4 (06:30→21:16)
[2017-03-17 08:08] VITALS: BP 104/56
[2017-03-17] MEDS ORDERED: Zinc Sulfate 220mg cap ORAL SCH (09:00)
[2017-03-17] MEDS ORDERED: Ascorbic Acid 500mg tab ORAL SCH (09:00)
[2017-03-17] MEDS ORDERED: Thiamine 100mg tab ORAL SCH (09:00)
[2017-03-17] MEDS ORDERED: Sodium Polystyrene Sulfonate Enema RECTAL ONE (09:30)
--- NOTE | 2017-03-17 09:45 | Diagnostic Imaging Report ---
Indications: Chest pain Technique: Portable AP chest Findings: Comparison: 02/16/17 Poor inspiration, lordotic projection of the image limiting evaluation. Curvilinear opacity persistent right midlung. Left and right costophrenic angle persists. Linear density again noted in left lung base. Cardiac silhouette remains enlarged. Pulmonary vasculature difficult to evaluate. Mildly increased interstitial markings persist bilaterally. Defibrillator patches overlie the abdominal left upper quadrant. IMPRESSION: Technically limited exam demonstrating findings compatible with persistent versus recurrent mild congestive heart failure with right pleural effusion tracking into right minor fissure. Superimposed right midlung atelectasis not excludable. Persistent left lung base subsegmental atelectasis versus scarring
--- NOTE | 2017-03-17 09:57 | Diagnostic Imaging Report ---
Indications: Shortness of breath Technique: Portable AP chest Findings: Comparison: 03/16/17 Inspiratory effort has modestly improved. Cardiac silhouette remains enlarged. Bilateral interstitial prominence, pulmonary vascular redistribution decreased. Curvilinear opacity right midlung, right costophrenic angle blunting, hazy opacity over right lower lung persists, unchanged. Left lung base linear density persists, decreased. No new abnormality identified. IMPRESSION: Decrease in bilateral interstitial prominence may represent changes due to improved inspiration and/or improving pulmonary edema Persistent right pleural effusion with tracking of the right minor fissure. Underlying atelectasis or pneumonia not excludable, unchanged Persistent left lung base subsegmental atelectasis versus scarring
[2017-03-17] MEDS ORDERED: NS 275ml ONE (10:21)
[2017-03-17 11:01] LABS: BAND NEUTROPHILS % (MANUAL) 0 % (0-8); BASOPHILS % (MANUAL) 0 % (0-2); EOSINOPHILS % (MANUAL) 1 % (0-3); LYMPHOCYTES % (MANUAL) 30 % (20-45); NEUTROPHILS % (MANUAL) 60 % (45-75); NUCLEATED RED BLOOD CELLS 3 /100 WBC; PLATELET ESTIMATE DECREASED; PLATELET MORPHOLOGY NORMAL; TOTAL CELLS COUNTED 100
[2017-03-17 11:02] LABS: ANISOCYTOSIS 2+; HYPOCHROMASIA 1+; MACROCYTES 1+
--- NOTE | 2017-03-17 11:14 | Diagnostic Imaging Report ---
Indications: Altered mental status Technique: Continuous helical CT imaging of the brain was performed with nonionic exposure control on a Siemens sensation [address] scanner. Axial and coronal images were reconstructed at 5 mm slice thickness and interval. CTDI volume(s): 70 mGy Total DLP: 1407 mGy-cm Findings: Comparison: None Confluent low attenuation is present throughout the bilateral periventricular and deep cerebral white matter. Ventricles, cisterns, and sulci are diffusely prominent. No evidence of mass or hemorrhage, mass effect, midline shift, hydrocephalus, or increased intracranial pressure. Bone window images are unremarkable. Left mastoid air cells partially opacified. Visualized paranasal sinuses and right mastoid air cells are clear. IMPRESSION: No evidence of acute intracranial pathology Bilateral cerebral periventricular and deepwhite matter low attenuation, nonspecific, likely chronic microvascular ischemic in nature. Atrophy. Left mastoid air cell underdevelopment and/or mastoiditis The CT scanner at [facility] is accredited by the [employer] and the scans are performed using protocols designed to limit radiation exposure to as low as reasonably achievable to attain images of sufficient resolution adequate for diagnostic evaluation.
[2017-03-17 12:00] VITALS: BP 93/46
[2017-03-17] MEDS ORDERED: Calcium Gluconate 10% 2 GM in NS 110 ML IVPB ONE ×2 (15:15→16:15)
[2017-03-17 16:00] VITALS: BP 100/49
--- NOTE | 2017-03-17 16:08 | Consultation ---
Consult Note Consult Note Hematology Consult DATE OF CONSULTATION: 03/17/2017 REQUESTING PHYSICIAN: Corbin Navarro M.D. REASON FOR CONSULTATION: Thrombocytopenia, Anemia HISTORY OF PRESENT ILLNESS: 66-year-old male with hepatitis C, coagulopathy, who presented to the emergency room because of bradycardia noted at the shelter. He has a history of chronic kidney disease and baseline dementia. He was not able to give any other associated complaints or symptoms. No other details available from shelter staff. Medication compliance was confirmed. In the emergency room , concern was raised over abnormal EKG revealing sinus bradycardia with ventricular rate of 38 and prolonged QT interval. The patient also was noted to have a potassium level of 6.7 in the emergency room workup glucagon, insulin, Kayexalate, intravenous fluid. Cardiology was consulted. Plt count was 32k and in prior was much higher, therefore this is an acute change in status. ALLERGIES: None. PAST MEDICAL HISTORY: Type 2 diabetes mellitus, hypertensive heart disease, liver disease of unknown etiology with cirrhosis, chronic anemia, peripheral artery disease, and chronic kidney disease. MEDICATIONS: Prior to admission, reviewed and reconciled and include carvedilol. SOCIAL HISTORY: Prior history of alcoholism. Nonsmoker. FAMILY HISTORY: Not known. PHYSICAL EXAMINATION: GENERAL: Vitals reviewed HEENT: Normocephalic and atraumatic. Conjunctivae are pink. Sclerae are anicteric. Oropharynx is clear. Mucous membranes dry. NECK: Supple. Jugular venous pressure is slightly elevated. Lungs with diminished breath sounds. No wheezing or rales. CARDIAC: Regular rhythm. Slow rate. Normal S1 and S2 with no murmur, rub, or gallop. ABDOMEN: Soft and nontender. No ascites. Palpable liver and hip. EXTREMITIES: Revealed no clubbing, cyanosis, or edema. He states there are skin changes of the lower extremities LABORATORY AND DIAGNOSTIC DATA: Chest x-ray shows mild pulmonary venous congestion. Labs, white count 5.4, hemoglobin 9.1, and MCV 102. Sodium 142, potassium 6.7, chloride 115, bicarbonate 11, BUN 58, and creatinine 2.7. Troponin negative. Pro-natriuretic peptide 30,000 and albumin 2.8. IMPRESSION: #. Thrombocytopenia - hepatitis C is positive, and has a history of alcoholism, but unlikely explanation. Potentially 2/2 DIC, have ordered labs today, peripheral smear is pending, also rule out ITP, HIT panel is pending as well. PLT goal is >20k for him #. Macrocytic anemia 2/2 likely alcoholism, b12 and folate pending #. Leukopenia is likely 2/2 splenomegaly #. Severe sinus bradycardia, presently asymptomatic, likely due to underlying sinus node disease, exacerbated by hyperkalemia and beta-janeth therapy. #. Udevb-xl-tumlsfc diastolic congestive heart failure. #. Hyperkalemia. #. Metabolic acidosis. #. Guvhc-lc-igxpvye renal failure. #. Chronic liver disease. #. History of alcoholism. #. Hypertensive heart disease. #. Type 2 diabetes mellitus. Alo Alvarado. March 17, 2017 16:08
[2017-03-17] MEDS: Sodium Bicarbonate 100 ML in D5W 1000ml 1,000 ML IV SCH (16:34)
[2017-03-17 17:15] LABS: PATH BLOOD SMEAR/OMC SENT TO PATHOLOGIST
[2017-03-17 17:31] LABS: CALCIUM 9.1 mg/dL (8.6-10.2); CREATININE 3.2 mg/dL (0.7-1.2); GLOMERULAR FILTRATION RATE 19.4 mL/min (>60); POTASSIUM 5.7 mEQ/L (3.4-4.9)
--- NOTE | 2017-03-17 17:31 | History and Physical Report ---
DATE OF ADMISSION: 03/16/2017 CHIEF COMPLAINT: Bradycardia, encephalopathy, and acute renal failure. HISTORY OF PRESENT ILLNESS: The patient is a 66-year-old male. He has a history of chronic kidney disease, cirrhosis, diabetes and hypertension. He was transferred from a [facility] facility with complaints of bradycardia. On evaluation in the emergency room, the patient is bradycardic in the 30s. He was also severely hyperkalemic with a potassium 6.7 and carbon dioxide of 11 and creatinine was also 2.7. The patient was given Kayexalate and is now admitted to monitored bed. Heart rate remains in the high 20s and low 30s, but the patient is otherwise asymptomatic and blood pressure is stable. No reports of any new medications. No known history of hypothyroidism. PAST MEDICAL HISTORY: As above. PAST SURGICAL HISTORY: Unknown. MEDICATIONS: Current medications were reviewed. ALLERGIES: None. SOCIAL HISTORY: There is no known history of tobacco, ethanol, or drugs. FAMILY HISTORY: None. REVIEW OF SYSTEMS: From the patient is unobtainable, as he is confused. PHYSICAL EXAMINATION: GENERAL: The patient is chronically ill-appearing male, in no apparent distress. He is awake, but does not track or follow commands. VITAL SIGNS: Temperature 97 degrees, pulse 31, respirations 17, and blood pressure 104/56. NECK: Supple. HEART: Bradycardic. LUNGS: Clear. ABDOMEN: Soft, nontender and nondistended. EXTREMITIES: Without clubbing or cyanosis. LABORATORY AND DIAGNOSTIC DATA: Lab showed sodium 143, potassium 6, chloride 115, bicarbonate of 12, BUN 60 and creatinine 3.1. ASSESSMENT: This is an unfortunate male with a history of encephalopathy, cirrhosis, hypertension and diabetes admitted with acute renal failure and bradycardia, unclear etiology. PLAN: IV hydration. Consider dopamine drip for heart rate support. Cardiology and EP evaluations. Kayexalate for hyperkalemia. Check an echo. According to the staff, family requested the patient to be Do Not Resuscitate. Robert Guerrero M.D. DR: JACINTO JOB#: [id number] CC:
[2017-03-17 17:33] LABS: URIC ACID 7.5 mg/dL (3.0-7.5)
--- NOTE | 2017-03-17 19:45 | Consultation ---
DATE OF CONSULTATION: 03/17/2017 CONSULTING PHYSICIAN: Corbin Navarro M.D. REASON FOR CONSULTATION: respiratory congestion and hypoxemia. HISTORY OF PRESENT ILLNESS: This is an unfortunate 66-year-old male with multiple medical problems. The patient does have a history of end-stage renal disease and also the patient has been treated for osteomyelitis. The [facility]. He presents today with profound bradycardia as well as bleeding from the recent debridement of the foot. The patient with multiple medical issues as well as significant thrombocytopenia. The patient also had hyperkalemia. The patient also with hypoxemia. The patient's case was reviewed. The patient's chart was reviewed. The patient has had prior admission here to the medical center as mentioned with evidence of pneumonia, chronic kidney disease, osteomyelitis, and now profound bradycardia. The patient had been on beta-janeth, also had been recommended dialysis, but kidney function did improve. PAST MEDICAL HISTORY: Notable for diabetes, hypertensive heart disease, liver disease, cirrhosis, thrombocytopenia, anemia, peripheral arterial disease, and osteomyelitis. MEDICATIONS: Reviewed. ALLERGIES: Reviewed. SOCIAL HISTORY: The patient has history of alcohol use. Nonsmoker. Presently a senior care patient. FAMILY HISTORY: Otherwise noncontributory. REVIEW OF SYSTEMS: Difficult to obtain. The patient is confused. PHYSICAL EXAMINATION: GENERAL: The patient is an ill-appearing male. VITAL SIGNS: Temperature 97, pulse rate 71, blood pressure 111/45, saturation 92% on room air, and respiratory rate 20. HEENT: Negative. The patient's extraocular movements are grossly intact. The oropharynx is otherwise moist. NECK: Supple. No adenopathy. LUNGS: Scattered rhonchi. Moderate air entry. CARDIAC: S1 and S2. Profoundly bradycardic without murmurs or gallops. ABDOMEN: Soft and nontender. No distention. EXTREMITIES: No cyanosis. No clubbing. reduced pulses. The patient also has noted wounds and recent debridement. NEUROLOGIC: The patient is confused and withdrawn. LABORATORY AND DIAGNOSTIC DATA: Lab data reviewed. Sodium 143, potassium 6, bicarbonate 12, BUN 60, and creatinine 3.1. Albumin 2.5. B12 1358. TSH 1.94. White cell count 12.1, hemoglobin 8.3, and platelets 223,000. Chest x-ray revealed infiltrates. IMPRESSION: 1. Hypoxemia. 2. Respiratory insufficiency. 3. Possible underlying pneumonia. 4. Shortness of breath. 5. Possible fluid overload. 6. End-stage renal disease. 7. Thrombocytopenia. 8. Anemia. 9. Diabetes. 10. Profound bradycardia. RECOMMENDATIONS: The patient is on the linezolid, which may not be effective. We will call Infectious Disease to evaluate. Call Cardiology. Monitor bradycardia, off beta-blockers. Follow up x-ray and exam. Follow fluid status. Contact Renal for elevated potassium. Kayexalate. Monitor for worsening thrombocytopenia, we will call Hematology. The patient has declined and acutely ill. Case will be discussed with his family. Corbin Navarro M.D. DR: TOÑO JOB#: [id number] CC: ROBERT
[2017-03-17 20:31] VITALS: BP 88/48
--- NOTE | 2017-03-17 21:01 | Consultation ---
DATE OF CONSULTATION: 03/17/2017 NEPHROLOGY CONSULTATION CONSULTING PHYSICIAN: Rajat Wood M.D. REFERRING PHYSICIAN: Corbin Navarro M.D. REASON FOR CONSULTATION: Hyperkalemia and renal failure. HISTORY OF PRESENT ILLNESS: The patient presents with bradycardia and hyperkalemia. He has chronic kidney disease stage 5, likely from diabetic nephropathy. He also has cirrhosis, ischemia and nonhealing ulcer of the right foot and likely schizophrenia. The patient is definitely a poor historian. At this time, he is having altered mental status and unable to talk. PAST SURGICAL HISTORY: Leg fracture many years ago. MEDICATIONS: From the [facility] are reviewed and current medications reviewed on the computer. HABITS: He has a long history of alcohol. He has used marijuana and is a nonsmoker. No IV drug abuse. ALLERGIES: None known. SOCIAL HISTORY: He lives in [facility]. His daughter is at the bedside. SYSTEM REVIEW: HEAD, EYES, EARS, NOSE, AND THROAT: He has severe hearing impairment. Vision is good. ENDOCRINE: History of diabetes for many years likely close to 20 years. No thyroid disease. PULMONARY: No asthma or TB. CARDIAC: No angina or [place]. There is a prior mention of prior CHF. Bradycardia is new. GASTROINTESTINAL: No nausea or vomiting at this time. GENITOURINARY: A Underwood catheter was placed last night. His urine output has been low. There is no history of urinary retention and difficulty voiding. NEUROLOGIC: No history of stroke or seizure. A CT scan showed small vessel disease. PHYSICAL EXAMINATION: GENERAL: The patient is lying in bed, and awake. VITAL SIGNS: Temperature 97 degrees, heart rate 28, respirations 19, blood pressure 93/46, and pulse oximetry is 94 on room air. HEAD, EYES, EARS, NOSE, AND THROAT: Tongue is protruded and looks like tardive dyskinesia. Sclerae are nonicteric. NECK: No adenopathy. LUNGS: Clear. HEART: Rhythm is regular. I hear no murmur. He is bradycardic. ABDOMEN: Soft. I am unable to feel liver or spleen. EXTREMITIES: No edema. There is a dressing on the right foot. NEUROLOGIC: He is awake. He has facial dyskinesias as not talking. Tongue is protruding. He moves all extremities. PERTINENT LABORATORIES AND DIAGNOSTIC DATA: White count 4.1, hemoglobin 8.3, and platelets 223,000. Sodium 143, potassium 6, chloride 115, CO2 12, BUN 60, creatinine 3.1, and glucose 133. Calcium is 8.8. Bilirubin is 0.2 and albumin is 2.5. TSH is 1.9. No urinalysis is available. The chest x-ray shows persistent right pleural effusion with tracking of the right minor fissure, persistent left lung base subsegmental atelectasis versus scarring. IMPRESSION: 1. Chronic kidney disease, stage 5. 2. Hyperkalemia. 3. Acidosis. 4. Bradycardia, which may or may not be related to potassium. 5. Cirrhosis. 6. Pancytopenia. 7. Schizophrenia. 8. Tardive dyskinesia. PLAN: The patient will be given medication treatment for hyperkalemia. We will recheck his laboratories. Watch him closely in view of his comorbidities. We will give him Epogen for anemia. I have discussed the condition in detail with the family and they do not wish to have CPR. Rajat Wood M.D. DR: NAVI JOB#: [id number] CC:
--- NOTE | 2017-03-17 21:52 | Wound Care Consultation ---
Wound Assessment Wound Assessment : Wound Present on Admission: Yes New Wound: No Status Change of Wound: No Wound Location Body Site Modif: right Wound Location Body Site: heel Wound Type: pressure ulcer Mayela Test: Does not Mayela Pressure Ulcer Stage: IV/unstageable Wound Thickness: Full Thickness Wound Length: 7.5 Wound Width: 5.5 Wound Depth: 0.3 Percent of Wound Purple/Maroon: 100 Wound Drainage Description: Serosanguineous Wound Drainage Amount: Moderate Wound Drainage Odor: None/Absent Tissue Surrounding Wound: Macerated Wound General Appearance: Reddened, Draining Wound Comment #1 Right heel stage IV pressure ulcer #2 Dry scabs on both lower legs Recommendation -Right heel pressure ulcer Cleanse with saline, pat dry, apply hydrogel to wound bed, apply calcium alginate, cover with 4x4, wrap with Kerlix daily and PRN soiled/dislodged -Keep clean and dry -Turn and reposition -Offload both heels -Heel protector on both heels -Low air loss mattress -Optimize nutrition -Assess and f/u accordingly for any changes MARINA GOETZ RN March 17, 2017 21:52
[2017-03-18] VITALS: BP 99/45
[2017-03-18] MEDS: Sodium Bicarbonate 100 ML in D5W 1000ml 1,000 ML IV SCH (01:25)
--- NOTE | 2017-03-18 02:01 | Progress Note ---
DATE: 03/17/2017 CARDIOLOGY PROGRESS NOTE SUBJECTIVE: The patient continues to have sinus bradycardia and junctional bradycardia rates in the 28 to 40 range. The patient has received numerous doses of Kayexalate for elevated potassium level. The most recent is 5.7, which is lower than admission of 6.7. OBJECTIVE: VITAL SIGNS: Blood pressure 88/48, pulse 31, and respirations 20. LUNGS: Bilateral breath sounds. CARDIAC: Regular rhythm. Slow rate. ABDOMEN: Soft. EXTREMITIES: No edema. LABORATORY DATA: Sodium 143, potassium 5.7, bicarb 12, BUN 59, and creatinine 3.2. Glucose 253. Lactic acid is less than 1. CA 19-9 is 16, which is quite elevated. IMPRESSION: 1. Acute renal failure. 2. Hyperkalemia. 3. Metabolic acidosis. 4. Elevated CA 19-9. 5. Severe sinus bradycardia and junctional bradycardia due to underlying conduction system disease aggravated by hyperkalemia. 6. Progressive hypotension and sepsis RECOMMENDATIONS: 1. The patient is appropriately DNR due to poor prognosis. 2. Hydration is being ordered. 3. Continue Kayexalate dosing. 4. Imaging of the abdomen. 5. We will need to address whether the patient is a candidate for permanent pacemaker in view of comorbidities. 6. Antibiotics per Infectious Disease security and privacy consultant. Benjamín Nguyễn M.D. DR: EARNEST JOB#: [id number] CC:
[2017-03-18 04:00] VITALS: BP 81/43
[2017-03-18 05:42] LABS: MEAN CORPUSCULAR HEMOGLOBIN 30.6 PG (27.0-31.0); MEAN CORPUSCULAR HGB CONC 29.9 G/DL (32.0-36.0); MEAN CORPUSCULAR VOLUME 103 FL (80-99); MEAN PLATELET VOLUME 9.7 FL (6.5-10.1); PLATELET COUNT 20 K/UL (150-450); RED BLOOD COUNT 2.75 M/UL (4.70-6.10); RED CELL DISTRIBUTION WIDTH 20.1 % (11.6-14.8); WHITE BLOOD COUNT 3.6 K/UL (4.8-10.8)
[2017-03-18 06:03] LABS: CALCIUM 8.4 mg/dL (8.6-10.2); CREATININE 3.2 mg/dL (0.7-1.2); GLOMERULAR FILTRATION RATE 19.4 mL/min (>60); POTASSIUM 5.7 mEQ/L (3.4-4.9)
[2017-03-18] MEDS: NovoLOG Insulin Flexpen SUBQ SCH (06:33)
[2017-03-18 08:06] VITALS: BP 86/46
--- NOTE | 2017-03-18 08:41 | General Progress Note ---
Assessment/Plan Problem List: (1) Cirrhosis ICD Codes: K74.60 - Unspecified cirrhosis of liver SNOMED: 93553703 (2) Anemia in chronic kidney disease ICD Codes: N18.9 - Chronic kidney disease, unspecified; D63.1 - Anemia in chronic kidney disease SNOMED: 660491189, 213128573 (3) Hyperkalemia, diminished renal excretion ICD Codes: E87.5 - Hyperkalemia SNOMED: 47435908 (4) Bradycardia ICD Codes: R00.1 - Bradycardia, unspecified SNOMED: 57790103 Status: deteriorating Assessment/Plan d/w dtr. prognosis grim. dnr affirmed. no pressors or escalation of care requested by dtr. family aware that pt is actively dying. they are coming to the hospital Subjective ROS Limited/Unobtainable: Yes Constitutional: Reports: malaise, weakness HEENT: Reports: no symptoms Cardiovascular: Reports: no symptoms Respiratory: Reports: no symptoms Gastrointestinal/Abdominal: Reports: difficulty swallowing Genitourinary: Reports: no symptoms Neurologic/Psychiatric: Reports: pre-existing deficit Endocrine: Reports: no symptoms Allergies: Coded Allergies: No Known Allergies (Unverified , 02/09/17) All Systems: reviewed and negative except above Subjective agonal respirations. HR high 20s. unresponsive. Objective Last 24 Hour Vital Signs Date Time Temp Pulse Resp B/P Pulse Ox O2 Delivery O2 Flow Rate FiO2 03/18/17 08:06 41 18 86/46 94 Nasal Cannula 03/18/17 07:03 42 16 Room Air 03/18/17 04:00 33 18 81/43 91 Nasal Cannula 3.0 03/18/17 03:37 31 03/18/17 00:00 38 20 99/45 95 Nasal Cannula 3.0 03/17/17 23:42 34 03/17/17 20:31 31 20 88/48 100 Nasal Cannula 2.0 03/17/17 19:28 36 16 Room Air 03/17/17 19:23 30 03/17/17 16:00 31 20 100/49 98 Nasal Cannula 2.0 03/17/17 16:00 30 03/17/17 12:00 28 03/17/17 12:00 97.0 28 19 93/46 94 Room Air Intake and Output 03/17/17 03/18/17 19:00 07:00 Intake Total 125 ml 1312.5 ml Output Total 450 ml 125 ml Balance -325 ml 1187.5 ml IV Total 125 ml 1312.5 ml Output Urine Total 450 ml 125 ml # Bowel Movements 8 4 Laboratory Tests 03/17/17 16:30: Reticulocyte Count 0.4, Hemoglobin A [Pending], Hemoglobin A2 [Pending], Hemoglobin C [Pending], Hemoglobin F () [Pending], Hemoglobin S [Pending], Variant Hemoglobin [Pending], Hemoglobin Electrophoresis Interp [Pending], Hemoglobin Interpretation [Pending], Hemoglobin Solubility [Pending], Haptoglobin 129, Fibrinogen 313, D-Dimer 810H, Sodium Level 143, Potassium Level 5.7H, Chloride Level 114H, Carbon Dioxide Level 12L, Anion Gap 17H, Blood Urea Nitrogen 59H, Creatinine 3.2H, Estimat Glomerular Filtration Rate 19.4, Glucose Level 253#H, Lactic Acid Level 0.60L, Uric Acid 7.5, Calcium Level 9.1, Ferritin 267H, Lactate Dehydrogenase 171, Carcinoembryonic Antigen 2.8, CA 19-9 Antigen 16.68, CA 125 Antigen [Pending], Heparin-PF4 Antibody Screen [Pending] 03/18/17 03:35: Sodium Level 143, Potassium Level 5.7H, Chloride Level 115H, Carbon Dioxide Level 15L, Anion Gap 13, Blood Urea Nitrogen 60H, Creatinine 3.2H, Estimat Glomerular Filtration Rate 19.4, Glucose Level 253H, Calcium Level 8.4L, White Blood Count 3.6L, Red Blood Count 2.75L, Hemoglobin 8.4L, Hematocrit 28.2L, Mean Corpuscular Volume 103H, Mean Corpuscular Hemoglobin 30.6, Mean Corpuscular Hemoglobin Concent 29.9L, Red Cell Distribution Width 20.1H, Platelet Count 20L, Mean Platelet Volume 9.7, Neutrophils (%) (Auto) , Lymphocytes (%) (Auto) , Monocytes (%) (Auto) , Eosinophils (%) (Auto) , Basophils (%) (Auto) , Neutrophils % (Manual) [Pending], Lymphocytes % (Manual) [Pending], Platelet Estimate [Pending], Platelet Morphology [Pending] Height (Feet): 5 Height (Inches): 8.00 Weight (Pounds): 160 General Appearance: confused Neck: supple Cardiovascular: bradycardia Respiratory/Chest: lungs clear Abdomen: normal bowel sounds Edema: no edema noted Arm (L), no edema noted Arm (R), no edema noted Leg (L), no edema noted Leg (R), no edema noted Pedal (L), no edema noted Pedal (R), no edema noted Generalized Neurologic: unresponsive OSCAR CHAMBERS March 18, 2017 08:41
--- NOTE | 2017-03-18 08:53 | Pulmonology Progress Note ---
Assessment/Plan Assessment/Plan IMPRESSION: 1. Hypoxemia. 2. Respiratory insufficiency. 3. Possible underlying pneumonia. + pulmonary infiltrates 4. Shortness of breath. 5. Possible fluid overload. 6. End-stage renal disease. 7. Thrombocytopenia. 8. Anemia. 9. Diabetes. 10. Profound bradycardia. PLAN prognosis poor patient seen earlier DNR confirmed terminal d/w Dr. Guerrero family aware impression, plan, and exam edited and reviewed in detail care discussed with RN Subjective ROS Limited/Unobtainable: Yes Allergies: Coded Allergies: No Known Allergies (Unverified , 02/09/17) Subjective doing poorly (seen earlier) Objective Last 24 Hour Vital Signs Date Time Temp Pulse Resp B/P Pulse Ox O2 Delivery O2 Flow Rate FiO2 03/18/17 08:06 41 18 86/46 94 Nasal Cannula 03/18/17 07:03 42 16 Room Air 03/18/17 04:00 33 18 81/43 91 Nasal Cannula 3.0 03/18/17 03:37 31 03/18/17 00:00 38 20 99/45 95 Nasal Cannula 3.0 03/17/17 23:42 34 03/17/17 20:31 31 20 88/48 100 Nasal Cannula 2.0 03/17/17 19:28 36 16 Room Air 03/17/17 19:23 30 03/17/17 16:00 31 20 100/49 98 Nasal Cannula 2.0 03/17/17 16:00 30 03/17/17 12:00 28 03/17/17 12:00 97.0 28 19 93/46 94 Room Air Intake and Output 03/17/17 03/18/17 19:00 07:00 Intake Total 125 ml 1312.5 ml Output Total 450 ml 125 ml Balance -325 ml 1187.5 ml IV Total 125 ml 1312.5 ml Output Urine Total 450 ml 125 ml # Bowel Movements 8 4 Objective GENERAL: The patient is an ill-appearing male. poor LOC NECK: Supple. No adenopathy. LUNGS: rhonchi. Moderate air entry. some basilar crackles CARDIAC: S1 and S2. bradycardic without murmurs or gallops. ABDOMEN: Soft and nontender. No distention. EXTREMITIES: No cyanosis. No clubbing. reduced pulses. mottled NEUROLOGIC: The patient with poor LOC Microbiology Date/Time Source Procedure Growth Status 03/16/17 20:00 Foot Right Gram Stain - Final Resulted 03/16/17 20:00 Foot Right Wound Culture Pending Resulted Laboratory Tests 03/17/17 16:30: Reticulocyte Count 0.4, Hemoglobin A [Pending], Hemoglobin A2 [Pending], Hemoglobin C [Pending], Hemoglobin F () [Pending], Hemoglobin S [Pending], Variant Hemoglobin [Pending], Hemoglobin Electrophoresis Interp [Pending], Hemoglobin Interpretation [Pending], Hemoglobin Solubility [Pending], Haptoglobin 129, Fibrinogen 313, D-Dimer 810H, Sodium Level 143, Potassium Level 5.7H, Chloride Level 114H, Carbon Dioxide Level 12L, Anion Gap 17H, Blood Urea Nitrogen 59H, Creatinine 3.2H, Estimat Glomerular Filtration Rate 19.4, Glucose Level 253#H, Lactic Acid Level 0.60L, Uric Acid 7.5, Calcium Level 9.1, Ferritin 267H, Lactate Dehydrogenase 171, Carcinoembryonic Antigen 2.8, CA 19-9 Antigen 16.68, CA 125 Antigen [Pending], Heparin-PF4 Antibody Screen [Pending] 03/18/17 03:35: Sodium Level 143, Potassium Level 5.7H, Chloride Level 115H, Carbon Dioxide Level 15L, Anion Gap 13, Blood Urea Nitrogen 60H, Creatinine 3.2H, Estimat Glomerular Filtration Rate 19.4, Glucose Level 253H, Calcium Level 8.4L, White Blood Count 3.6L, Red Blood Count 2.75L, Hemoglobin 8.4L, Hematocrit 28.2L, Mean Corpuscular Volume 103H, Mean Corpuscular Hemoglobin 30.6, Mean Corpuscular Hemoglobin Concent 29.9L, Red Cell Distribution Width 20.1H, Platelet Count 20L, Mean Platelet Volume 9.7, Neutrophils (%) (Auto) , Lymphocytes (%) (Auto) , Monocytes (%) (Auto) , Eosinophils (%) (Auto) , Basophils (%) (Auto) , Neutrophils % (Manual) [Pending], Lymphocytes % (Manual) [Pending], Platelet Estimate [Pending], Platelet Morphology [Pending] Current Medications Medications (Trade) Dose Ordered Sig/Loulou Route PRN Reason Start Time Stop Time Status Last Admin Dose Admin Acetaminophen (Tylenol) 650 mg Q4H PRN ORAL For Headache 03/16/17 23:00 04/15/17 22:59 Acetaminophen (Tylenol) 650 mg Q4H PRN ORAL Mild Pain/Temp > 100.5 03/16/17 23:00 04/15/17 22:59 Acetaminophen/ Hydrocodone Bitart ([place] 5/325) 1 tab Q4H PRN ORAL Moderate Pain (Pain Scale 4-6) 03/16/17 22:15 03/23/17 22:14 Al Hydroxide/Mg Hydroxide (Mylanta II) 30 ml Q4H PRN ORAL Abdominal cramps 03/16/17 23:00 04/15/17 22:59 Albuterol Sulfate (Proventil) 2.5 mg Q4H PRN HHN Shortness of Breath 03/16/17 23:00 03/21/17 22:59 Ascorbic Acid (Vitamin C) 500 mg DAILY ORAL 03/17/17 09:00 04/16/17 08:59 03/17/17 10:00 Dextrose (Dextrose 50%) STAT PRN IV Hypoglycemia 03/16/17 22:15 04/15/17 22:14 Epoetin Wagner (Procrit (for ESRD on dialysis)) 10,000 units TUE-TUE-TUE SUBQ 03/18/17 21:00 04/17/17 20:59 Ferrous Sulfate (Feosol) 325 mg THREE TIMES A DAY ORAL 03/17/17 09:00 04/16/17 08:59 03/17/17 17:26 Folic Acid (Folate) 1 mg DAILY ORAL 03/17/17 09:00 04/16/17 08:59 03/17/17 10:01 Hydralazine HCl 50 mg 50 mg Q6H PRN ORAL SBP above 160 03/17/17 00:00 04/16/17 00:00 Insulin Aspart (NovoLOG) BEFORE MEALS AND HS SUBQ 03/17/17 06:30 04/16/17 06:29 03/18/17 06:33 Linezolid (Zyvox) 600 mg EVERY 12 HOURS ORAL 03/17/17 09:00 03/18/17 10:00 03/17/17 21:15 Multivitamins (Multivitamins) 1 tab DAILY ORAL 03/17/17 09:00 04/16/17 08:59 03/17/17 10:00 Sodium Bicarbonate/ Dextrose (Sodium Bicarbonate/D5W 1000ml) 1,100 ml @ 125 mls/hr Q8H48M IV 03/17/17 16:30 03/18/17 18:53 03/18/17 01:25 Thiamine HCl (Vitamin B1) 100 mg DAILY ORAL 03/17/17 09:00 04/16/17 08:59 03/17/17 10:00 Zinc Sulfate (Zinc Sulfate) 220 mg DAILY ORAL 03/17/17 09:00 04/16/17 08:59 03/17/17 10:00 Zolpidem Tartrate (Ambien) 5 mg HSPRN PRN ORAL Insomnia 03/16/17 23:00 04/15/17 22:59 KELSEA DIAL March 18, 2017 08:53
[2017-03-18] MEDS ORDERED: NS Irrig 1000ml ONE (09:41)
[2017-03-18] MEDS ORDERED: Tubing IV Secondary IV ONE (09:41)
[2017-03-18] MEDS ORDERED: NS 550ML IV ONE (09:41)
[2017-03-18 09:56] LABS: BAND NEUTROPHILS % (MANUAL) 7 % (0-8); BASOPHILS % (MANUAL) 0 % (0-2); EOSINOPHILS % (MANUAL) 0 % (0-3); LYMPHOCYTES % (MANUAL) 18 % (20-45); NEUTROPHILS % (MANUAL) 72 % (45-75); NUCLEATED RED BLOOD CELLS 7 /100 WBC; PLATELET ESTIMATE DECREASED; PLATELET MORPHOLOGY NORMAL; TOTAL CELLS COUNTED 100
[2017-03-18 09:57] LABS: ANISOCYTOSIS 2+; BURR CELLS 1+; HYPOCHROMASIA 1+; MACROCYTES 1+; POIKILOCYTOSIS 1+
[2017-03-18 10:21] LABS: CA 125 30.7 U/mL (.)
[2017-03-18] MEDS ORDERED: Epogen (for ESRD on dialysis) SUBQ SCH (21:00)
--- NOTE | 2017-03-19 06:16 | Progress Note ---
DATE: 03/18/2017 CARDIOLOGY PROGRESS NOTE SUBJECTIVE: Condition is deteriorating. Blood pressure continues to drop. Heart rate remains in the 30s and 40s. Progressive renal failure is noted. OBJECTIVE: GENERAL: Unresponsive. LUNGS: Diminished breath sounds. HEART: Regular rhythm. Slow rate. ABDOMEN: Soft. EXTREMITIES: Diffuse edema. LABORATORY DATA: White count is 3.6, hemoglobin 8.4. Sodium 143, potassium 5.7, bicarbonate 15, BUN 60, and creatinine 3.2. IMPRESSION: 1. Multiorgan system failure. 2. Progressive renal failure. 3. Bradyarrhythmia due to sinus node disease. 4. Hyperkalemia. 5. Metabolic acidosis. 6. Condition critical. Prognosis grave. Advanced directive, Do Not Resuscitate. Family members are expected and did not wish to escalate care as it would be futile based on his clinical parameters. He is certainly not a candidate for permanent pacemaker or dialysis based on his comorbidities. PLAN: Comfort measures. No additional cardiovascular intervention planned. Benjamín Nguyễn M.D. DR: Marge JOB#: [id number] CC:
[2017-03-19 10:14] LABS: OTHERS PATHOLOGIST COMMENT
--- NOTE | 2017-03-21 12:17 | Discharge Summary ---
Discharge Summary Hospital Course Date of Admission March 16, 2017 at 18:16 Date of Discharge March 18, 2017 at 08:35 Admitting Diagnosis bradycardia HPI Sukumar Ceja is a 66 year old male who was admitted on March 16, 2017 at 18:16 for Bradycardia Hospital Course summary # [id number] Discharge Discharge Disposition Patient , pronounced at 0835 03/18/17 Discharge Diagnoses: Discharge Instructions Discharge Instructions Special Instructions I have been assigned to complete a D/C Summary on this account. I was not involved in the patient management Vesta Tenorio NP (Vanchtein) March 21, 2017 12:17
--- NOTE | 2017-03-21 19:12 | Cardiology Report ---
APPROVED REPORT EKG Measurement Heart [id number] ID [id number] Marked sinus bradycardia Nonspecific T wave abnormality Prolonged QT Abnormal ECG
--- NOTE | 2017-03-22 11:16 | Discharge Summary 2 SIG ---
SUMMARY DATE OF ADMISSION: 03/16/2017 DATE OF DISCHARGE: 03/18/2017 REASON FOR ADMISSION: 66-year-old male with history of chronic liver disease, chronic kidney disease, diabetes, hypertension, [facility] of bradycardia. Upon evaluation in the emergency room, it was found that he was bradycardic and severely hyperkalemic with potassium- 6.7. BUN- 60, creatinine -3.1, bicarbonate -12, and potassium - 6.7. Blood pressure was stable. No known history of hypothyroidism. The patient was treated for hyperkalemia in ED and was admitted to telemetry bed. ADMITTING DIAGNOSES: 1. Profound bradycardia. 2. Encephalopathy. 3. Hyperkalemia. 4. Acute renal failure. HOSPITAL STAY: The patient was admitted to monitored floor. Pulmonary, Cardiology and Hematology consults were requested. The patient was initially on a cautious IV hydration, per Cardiology recommendation. Hyperkalemia was treated with Kayexalate down to 5.7 , prior to expiration. Blood pressure remained low. All antihypertensive medications discontinued. Blood sugar was managed with the sliding scale of insulin. Atropine was at the bedside. According to magento developer, profound bradycardia likely secondary to underlying sinus node disease likely exacerbated by beta-janeth treatment and hyperkalemia. Chest x-ray with evidence of bilateral infiltrates, possible pneumonia versus fluid overload as per pulmonology, who also followed the patient. Supplemental oxygen and pulmonary toilet were provided as needed. CT of the head revealed no acute intracranial pathology. Venous duplex of bilateral lower extremities was negative. Electrical Automation Engineer followed. The patient presented with evidence of anemia and thrombocytopenia, According to fusion juncture grinder, macrocytic anemia likely due to the alcohol abuse. B12 and folate are within normal limits; thrombocytopenia was secondary to history of alcoholism, however, it potentially could be DIC or ITP. The patient with evidence of elevated D-dimer - 810, fibrinogen -313, within normal limits. HIV panel was pending. Commercial Loan Assistant follow for renal failure. The patient was started on Epogen. Renal parameters and electrolytes were closely monitored. Wound care nurse seen the patient for right heel stage IV decubitus ulcer, present on admission. Wound care provided by nursing staff as per wound nurse recommendation. The patient was in guarded condition. Prognosis was grave. Renal failure was progressively worse. Patient with end stage of liver disease, intermittent bradyarrhythmias due to sinus node disease, acute diastolic heart failure ( as per cardio consult). The patient was not a candidate for permanent pacemaker or dialysis based on his comorbidities. Family members expressed desire for comfort care and did not wish to escalate care as it would be futile, based on the patient's clinical condition and multiorgan system failure. Code status was changed to DNR. The patient was pronounced on 03/18/2017 at 08:35. Cause of : cardiopulmonary arrest. FINAL DIAGNOSES: 1. Profound bradycardia. 2. Acute encephalopathy. 3. Multiorgan system failure. 4. Acute renal failure on chronic kidney disease. 5. Acute on chronic diastolic heart failure 5. Hyperkalemia. 6. Chronic liver disease. 7. History of alcohol abuse. 7. Hypertensive heart disease. 8. Bradyarrhythmia due to the sinus node disease. 9. Macrocytic anemia 10.Thrombocytopenia. 11. Diabetes mellitus type 2. 12. Hyperkalemia 13. Tardive dyskinesia. 14. Right heel stage IV, present on admission. 15, Metabolic acidosis Robert Guerrero M.D. I have been assigned to dictate discharge summary on this account and I was not involved in the patient's management. Vesta Uriaselena N.PSima DR: SHARONA JOB#: [id number] CC: ROBERT
[2017-03-23 13:13] LABS: HEMOGLOBIN A 97.6 % (94.0-98.0); HEMOGLOBIN A2 2.4 % (0.7-3.1)
--- NOTE | 2017-03-23 18:28 | Diagnostic Imaging Report ---
APPROVED REPORT CPT Code: 16880 Present Symptoms Comments: Screening BILATERAL: Imaging reveals a patent deep venous system bilaterally. There is no evidence of thrombus within the femoral, popliteal or tibial segments. The greater saphenous veins are also within normal limits. Doppler indicates normal spontaneous flow within these segments.
== END 2017-03-18 08:35 | disposition expired | DRG 201 ==
LOC: EDBD 17:02 → EMR 18:15 → 2W 18:16 → EDBEDREQ 19:03 → 2W 19:36
DX: I49.5 Sick sinus syndrome (principal); I50.33 Acute on chronic diastolic (congestive) heart failure; G93.40 Encephalopathy, unspecified; N17.9 Acute kidney failure, unspecified; J18.9 Pneumonia, unspecified organism; E87.2 Acidosis; L89.614 Pressure ulcer of right heel, stage 4; D61.818 Other pancytopenia; Z51.5 Encounter for palliative care; I12.0 Hypertensive chronic kidney disease with stage 5 chronic kidney disease or end stage renal disease; K74.60 Unspecified cirrhosis of liver; I13.10 Hypertensive heart and chronic kidney disease without heart failure, with stage 1 through stage 4 chronic kidney disease, or unspecified chronic kidney disease; D64.9 Anemia, unspecified; Z79.4 Long term (current) use of insulin; I73.9 Peripheral vascular disease, unspecified; F10.21 Alcohol dependence, in remission; E87.5 Hyperkalemia; B19.20 Unspecified viral hepatitis C without hepatic coma; R09.02 Hypoxemia; E11.21 Type 2 diabetes mellitus with diabetic nephropathy; E11.22 Type 2 diabetes mellitus with diabetic chronic kidney disease; N18.5 Chronic kidney disease, stage 5; Z66 Do not resuscitate; I13.2 Hypertensive heart and chronic kidney disease with heart failure and with stage 5 chronic kidney disease, or end stage renal disease; F20.9 Schizophrenia, unspecified; G24.01 Drug induced subacute dyskinesia; I95.9 Hypotension, unspecified; K72.90 Hepatic failure, unspecified without coma; D69.59 Other secondary thrombocytopenia
CPT/HCPCS: 36415; 70450; 71010; 80048; 80053; 82378; 82550; 82553; 82607; 82728; 82746; 82962; 83010; 83020; 83605; 83615; 83735; 83880; 84443; 84484; 84550; 85007; 85025; 85044; 85060; 85379; 85384; 86301; 86304; 87070; 87081; 87181; 87205; 93005; 93970; 94664; J1815